=== PATIENT | female | born 1950 | race Caucasian/White ===

== ENCOUNTER 2024-03-04 10:16 | Outpatient (AMB) | payer MEDICARE, OTHER, SELFPAY ==
[2024-03-04 10:58] VITALS: BP 124/74; PULSE 103; O2SAT 96; BMI 17.7
--- NOTE | 2024-03-04 10:58 | A.OFFVIS_ITS ---
Vital Signs 03/04/24 10:58 Height 5 ft 4 in Weight 103 lb 2.821 oz BMI 17.7 BP 124/74 Blood Pressure Location Lt brachial Position Sitting Pulse 103 H Pulse Source Pulse Oximeter Pulse Oximetry (%) 96 Oxygen Delivery Method Room Air Intake Visit Reasons: arthritis/cm Intake Note: Patient presents for follow up on RA today. Allergies Penicillins Allergy (Mild, Verified 03/04/24 11:04) Itchiness HPI HPI arthritis/cm: Details: She continues to have limited range of motion of her shoulders. She denies any new joint swelling. She tries to exercise with movement at home. Recently her oncology regimen has been changed to receiving injections every 3 weeks to every [address] Daniel. She is on immunotherapy Atezolizumab for metastatic bladder cancer. She has ureteral stents. Denies any new infections Review of Systems Const All systems reviewed & are unremarkable except as noted in HPI and below Physical Exam Vital Signs: Last Vital Signs Pulse 103 H 03/04/24 10:58 BP 124/74 03/04/24 10:58 Pulse Ox 96 03/04/24 10:58 Oxygen Delivery Method Room Air 03/04/24 10:58 BMI result Body Mass Index 17.7 Const Other: General: Comfortable CVS: RRR Respiratory: clear to auscultation bilaterally. 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 She has ulnar deviations of her MCPs. No synovitis present upper extremity. Right shoulder abduction 100 degrees with left shoulder abduction 90 degrees with pain. She has internal external rotation of bilateral shoulders. Examined while patient is sitting in wheelchair seat. No synovitis of lower extremities. No MTP tenderness Assessment & Plan Assessment & Plan (1) Rheumatoid arthritis: Comment: Seropositive, deforming, erosive. On Leflunomide 04/13/2023 to present, sulfasalazine March 2023 to present. She is in clinical remission on current regimen. Monitoring closely while patient is being treated for metastatic bladder cancer on immunotherapy Atezolizumab PD-L1 inhibitor, which can lead to flares of inflammatory arthritis as a side effect. Code(s): M06.9 - Rheumatoid arthritis, unspecified Category: Medical Qualifiers: Rheumatoid arthritis location: multiple sites Rheumatoid factor prese nce: with rheumatoid factor Qualified Code(s): M05.79 - Rheumatoid arthritis with rheumatoid factor of multiple sites without organ or systems involvement Plan: Continue leflunomide 20 mg daily Continue sulfasalazine 500 mg b.i.d. She recently had labs done at [facility]. Requesting lab results for drug monitoring on high-risk medication. After lab results are back, we will send 90 day prescriptions for leflunomide and sulfasalazine. 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
--- OUTSIDE RECORDS SUMMARY | 2024-03-05 00:15 | XMS_ITS ---
Author Organization [facility] Address [address] [place] [address] Care Team Providers Care Chief [employer]erv[employer] Name Role Phone oRlanda King Primary Care Provider Toby AltmanSantae Unavailable [phone] REASON FOR VISIT [place] Encounters Encounter Location Date Provider Diagnosis [address] [address] 01/02/2024 Lolita Altman Plan Of Treatment Next Appt Details Provider Name:Lolita Altman , 04/02/2024 08:30:00 AM, [address] [place], [address], Progress Notes * Nelly ROQUEDOB: [birth year] (73 yo F)Acc No.[id number]:01/02/2024 Patient:?Nelly Roque :1950???Age:73 Y???Sex:Female Address:[address] [place] [address], [address] * true * Date:? Generated for Printi ng/Fakeyurg/eTransmitting on:?03/05/2024 12:15 AM EST
--- OUTSIDE RECORDS SUMMARY | 2024-03-05 00:15 | XMS_ITS ---
[facility] Address [address] [place] [address] Care Team Providers Care Chemical Handler Name Role Phone Rolanda King Primary Care Provider Toby gardiner Lolita Altman Unavailable [phone] Allergies Allergen (clinical drug ingredient) Drug/Non Drug Allergy documented on EMR Reaction Allergy Type Onset Date Status amoxicillin Amoxicillin Unknown Drug Allergy Act ady Penicillin Unknown Drug Allergy Active REASON FOR VISIT Pcp-12/16, Open sore, Skin problem(s) Medications Medication SIG (Take, Route, Frequency, Duration) Notes Start Date End Date Status Clindamycin HCl 300 MG 1 capsule Orally every 6 hrs for 10 day(s) 11/05/2022 Not-Taking oxyCODONE HCl 5 MG 1 tablet as needed Orally every 6 hrs Active Acetaminophen Extra Strength 500 MG 2 tablet as needed Orally every 6 hrs for 14 days 10/11/2022 Active Doxycycline Hyclate 100 MG 1 capsule Ora lly Once a day for 10 day(s) Active levoFLOXacin 500 MG 1 tablet Orally Once a day for 10 day(s) 12/03/2022 Not-Taking Neuriva Not-Taking Furosemide 20 MG 1 tablet Orally Once a day for 30 day(s) Active Eliquis 5 MG as directed Orally Active Metoprolol Succinate ER 25 MG 1 tablet Orally Once a day for 30 day(s) Active Doxycycline Hyclate 100 MG 1 capsule Ora lly Once a day for 10 day(s) 07/17/2021 Not-Taking oxyBUTYnin Not-Takin g Social History Tobacco Use: Social History Observation Description Date Details (start date - stop date) Former Smoker NA - NA Tobacco Use/Smoking Question Answer Notes Are you a: former smoker Additional Findings: Tobacco Non-User Current no n-smoker Tobacco use other than smoking: Question Answer Notes Are you an other tobacco user? No Vital Signs Height 5ft3in in 01/20/2024 Weight 100 lbs 01/20/2024 BMI 17.71 kg/m2 01/20/2024 Encounters Encounter Location Date Provider Diagnosis [facility] [address] [place] [address] 01/20/2024 Lolita Altman Cellulitis of right foot L03.115 ; Ulcer of left foot, limited to breakdown of skin L97.521 and Ulcer of right foot with fat layer exposed L97.512 Assessments Encounter Date Diagnosis (ICD Code) Assessment Notes Treatment Notes Treatment Clinical Notes Section Notes 01/20/2024 Cellulitis of right foot (ICD-10 - L03.115) Response to treatment - Improvement 01/20/2024 Ulcer of left foot, limited to breakdown of skin (ICD-10 - L97.521) Patient Educated with: WOUND CARE INSTRUCTIONS.p df (WOUND CARE INSTRUCTIONS.p df) 01/20/2024 Ulcer of right foot with fat layer exposed (ICD-10 - L97.512) Patient Educated with: WOUND CARE INSTRUCTIONS.p df (WOUND CARE INSTRUCTIONS.p df) Patient Educated with: WOUND CARE INSTRUCTIONS.p df (WOUND CARE INSTRUCTIONS.p df) 01/20/2024 Other Plan Of Treatment Treatment Notes Assessment Notes Ulcer of left foot, limited to breakdown of skin Patient Educated with: WOUND CARE INSTRUCTIONS.pdf (WOUND CARE INSTRUCTIONS.pdf) Ulcer of right foot with fat layer expos ed Patient Educated with: WOUND CARE INSTRUCTIONS.pdf (WOUND CARE INSTRUCTIONS.pdf) Patient Educated with: WOUND CARE INSTRUCTIONS.pdf (WOUND CARE INSTRUCTIONS.pdf) Next Appt Details Follow Up: 2-3 weeks, Reason : Provider Name:Lolita Altman , 04/02/2024 08:30:00 AM, [address] [place], [address], Procedure Notes * Category Sub-Category Detail Notes Debride skin< 25 sq cm Open wound Physician of record performed open wound selective debridement of first 25 sq cm or less, of devitilized necrotic/nonviable soft tissue, fibrin, and exudate extending from the epidermis through the dermis, utilizing sharp dissection with sterile 15 blade, and/or tissue nippers. Hemostasis was controlled through direct pressure. Sterile antibiotic dressing applied, ANESTHESIA was not required due to presence of NEUROPATHY. Post debridement measurements: 2 mm x2 mm x 1 mm. Character of the wound post debridement is stable (84720) Debride skin and subQ Open wound Physician of record performed open wound selective debridement of devitalized necrotic/nonviable soft tissue, fibrin, exudate, epidermis, dermis, thru skin and subcutaneous fat tissue, first 20 sq cm or less, using sharp dissection with sterile 15 blade, and/or tissue nippers. ANESTHESIA was not required due to presence of NEUROPATHY. Hemostasis was controlled through direct pressure. Sterile antibiotic dressing applied. Post debridement measurements: 7mm x6mm x 3mm. Character of the wound post debridement is stable (83465) Progress Notes * Nelly BENAVIDESDOB: [birth year] (73 yo F)Acc No.[id number]:01/20/2024 Progress Notes Patient:?Nelly Benavides Provider:?Lolita Altman DPM :1950???Age:73 Y???Sex:Female D ate:01/20/2024 Address:[address] [place], [place] [id number] Pcp:Rolanda King Subjective: * Chief Complaints: * ???Pcp-12/16Open soreSkin pr oblem(s) * HPI: ???Skin problems:?Nature:?redness , swelling , tender.?Location:?, Bottom , Forefoot , , Right.?Duration:?, several days.?Onset/Cause:?sudden.?Course:?, improved , at? 90%.?Aggravated by:?any pressure , standing.?Treatments:?DSD , medication ( doxycycline hyclate 100mg ) , Local care consisting of daily distilled water wound cleanse, topical antibiotic as recommended, application of sterile dressing, offloading/pressure reduction via rest, shoe modification, insert modification, accommodative padding, assisted ambulation via cane/ crutch/ walker/ wheel chair/ knee scooter, and surgical debridement.? * ROS:?General/Constitutional:?Nausea?denies.?Vomiting?denies.?Hunger Thirst?denies.?Loss appetite?denies.?Chills?denies.?Fatigue?denies.?Fever?denies.?Night Sweats?denies.?Unexplained weight loss?denies.?Unexplained weight gain?denies.?HEENTM:?Dentures?denies.?Dizziness?denies.?Glasses/contacts?denies.?Retinopathy?de nies.?Blurred/double vision?denies.?TMJ?denies.?Discharge/drainage?denies.?Implants?denies.?Sore throat?denies.?Dental implants?denies.?Hard of hearing ?denies.?Difficulty chewing/swallowing/speaking?denies.?Nose bleeds?denies.?Sore mouth?denies.?Respiratory:?On Oxygen?denies.?Pneumonia/pleurisy?denies.?Bronchitis?denies.?Emphysema?denies.?C oughing?denies.?Cough blood?denies.?Shortness of breath?denies.?Wheezing?denies.?Cardiovascular:?Pacemaker?denies.?MVP?denies.?WPW?denies.?CHF?denies.?Heart attack?denies.?Septal defect?denies.?Rapid beat?denies.?Chest pain ?denies.?Atrial Fib.?denies.?Murmur/Palpitations?denies.?Gastrointestinal:?Hemorrhoids?denies.?Stomach/Abdominal pain?denies.?Dark blood stool?denies.?Irritable bowel ?denies.?Constipation?denies.?Diarrhea?denies.?Hematology:?Swelling?denies.?Clots?denies.?Varicose Veins?denies.?Bruising?denies.?Bleeding problem?denies.?Genitourinary:?Blood urine?denies.?Frequent/Painfu/urination/bladder control?denies.?Kidney stones?denies.?Infection (UTI)?denies.?Nephropathy?denies.?sex trans dis (STD)?denies.?Prostate?denies.?Musculoskeletal:?Hammertoes?admits.?Bunions?admits.?Back Pain?denies.?Muscle Cramps/ Resting?denies.?Muscle cramps / walking?denies.?Generalized aches and pains?denies.?Weakness?denies.?Integ.:?Stanford?denies.?Scars?denies.?Corns/calluses?admits.?Ingrown nails?denies.?Painful nails?admits.?Open Sores?admits.?Rashes?denies.?Neurologic:?Difficulty sleeping?denies.?Brain disorder?denies.?Numbness?denies.?Balance trouble?denies.?Confusion?denies.?Fainting/blackouts?denies.?Tingling?admits.?Tr emors?denies.? * Medical History:? * Surgical History:?knee repla cement 08/19/2019left knee replacement 01/11Excision 4th Met Head Left Foot 10/31/22 * Hospitalization/Major Diagno stic Procedure:?Denies Past Hospitalization * Family History:?Mother: dece ased, diagnosed with Family history of arthritis, Unspecified essential hypertension.?Father: , Stroke, diagnosed with Unspecified essential hypertension, Unspecified heart disease.? * Social History:?Tobacco Use:?Tobacco Use/Smoking?Are you a:?former smoker ?Additional Findings: Tobacco Non-User?Current non-smoker ?Tobacco use other than smoking?Are you an other tobacco user??No ???Miscellaneous:?Caffeine: yes, frequency:, 1-2 cups per day. ?Children: yes. ?no Exercise. ?Marital status: . ?Occupation: retired- [employer]. * Medications:?TakingFurosemid e 20 MG Tablet 1 tablet Orally Once a dayEliquis 5 MG Tablet as directed Orally Metoprolol Succinate ER 25 MG Tablet Extended Release 24 Hour 1 tablet Orally Once a dayoxyCODONE HCl 5 MG Tablet 1 tablet as needed Orally every 6 hrsAcetaminophen Extra Strength 500 MG Tablet 2 tablet as needed Orally every 6 hrsDoxycycline Hyclate 100 MG Capsule 1 capsule Orally Once a dayTaking Furosemide 20 MG Tablet 1 tablet Orally Once a dayTaking Eliquis 5 MG Tablet as directed Orally Taking Metoprolol Succinate ER 25 MG Tablet Extended Release 24 Hour 1 tablet Orally Once a dayTaking oxyCODONE HCl 5 MG Tablet 1 tablet as needed Orally every 6 hrsTaking Acetaminophen Extra Strength 500 MG Tablet 2 tablet as needed Orally every 6 hrsTaking Doxycycline Hyclate 100 MG Capsule 1 capsule Orally Once a dayNot-Taking/PRNlevoFLOXacin 500 MG Tablet 1 tablet Orally Once a dayClindamycin HCl 300 MG Capsule 1 capsule Orally every 6 hrsoxyBUTYnin Doxycycline Hyclate 100 MG Capsule 1 capsule Orally Once a dayNeuriva Medication List reviewed and reconciled with the patientNot-Taking/PRN levoFLOXacin 500 MG Tablet 1 tablet Orally Once a dayNot-Taking/PRN Clindamycin HCl 300 MG Capsule 1 capsule Orally every 6 hrsNot-Taking/PRN oxyBUTYnin Not-Taking/PRN Doxycycline Hyclate 100 MG Capsule 1 capsule Orally Once a dayNot-Taking/PRN Neuriva Medication List reviewed and reconciled with the patient * Allergies:?AmoxicillinPenici llin: Allergyyes[Allergies Verified] Objective: * Vitals:?Ht: 5ft3in, Wt:100, BMI:17.71, Shoe size: 8EEW, Ht-cm: 160.02 cm, Wt-k.36 kg. * Examination: ???Dermatologic: ?SKIN FINDINGS:??Skin shows sign(s) of?cellulitis with localized lymphangitis right, resolved.?ULCER:?LOCATION, 2 MTH,right?? SIZE,6mm X 6mm X 3mm, BASE, fibro-granular, RIM, hyperkeratotic, UNDERMINING, mild, TRACKING, Sub Q with Fat layer exposed, DRAINAGE, serosanguineous, moderate, NECROTIC TISSUE, loosely-adherent, yellow slough, MALODOR,absent CALOR, absent, ERYTHEMA, trace?LOCATION, 2 MTH left SIZE, 3mm X 3mm X 2mm, BASE, granular, RIM, hyperkeratotic, UNDERMINING, absent, TRACKING, Full thickness breakdown of skin, DRAINAGE, serosanguineous, mild, NECROTIC TISSUE, loosely-adherent, yellow slough, MALODOR, absent, CALOR, absent, ERYTHEMA, absent, PAIN ON PALPATION, present.? Assessment: * Assessment: 1.?Cellulitis of right foot - L03.115 (Primary), Response to treatment - Improvement?2.?Ulcer of left foot, limited to breakdown of skin - L97.521?3.?Ulcer of right foot with fat layer exposed - L97.512? Plan: * Treatment: 2.?Ulcer of right foot with fat layer exposed? Notes: Patient Educated with: WOUND CARE INSTRUCTIONS.pdf (WOUND CARE INSTRUCTIONS.pdf) Patient Educated with: WOUND CARE INSTRUCTIONS.pdf (WOUND CARE INSTRUCTIONS.pdf)?? * Procedures:?Debride skin and subQ:?Open wound?Physician of record performed open wound selective debridement of devitalized necrotic/nonviable soft tissue, fibrin, exudate, epidermis, dermis, thru skin and subcutaneous fat tissue, first 20 sq cm or less, using sharp dissection with sterile 15 blade, and/or tissue nippers. ANESTHESIA was not required due to presence of NEUROPATHY. Hemostasis was controlled through direct pressure. Sterile antibiotic dressing applied. Post debridement measurements: 7mm x6mm x 3mm. Character of the wound post debridement is stable (42283).?Debride skin< 25 sq cm:?Open wound?Physician of record performed open wound selective debridement of first 25 sq cm or less, of devitilized necrotic/nonviable soft tissue, fibrin, and exudate extending from the epidermis through the dermis, utilizing sharp dissection with sterile 15 blade, and/or tissue nippers. Hemostasis was controlled through direct pressure. Sterile antibiotic dressing applied, ANESTHESIA was not required due to presence of NEUROPATHY. Post debridement measurements: 2 mm x2 mm x 1?mm. Character of the wound post debridement is stable (99101).? * Procedure Codes:?40605 DEBRI DE SKIN/TISSUE, Modifiers: XS 94705 ACTIVE WOUND CARE/20 CM OR <, Modifiers: XS * Preventive Medicine:? ??Counseling:?Discussion:?-12: Office or other outpatient visit for the evaluation and management of an established patient, which required a medically appropriate history and/or examination and STRAIGHTFORWARD level of MEDICAL DECISION MAKING, 1 SELF-LIMITED OR MINOR PROBLEM, MINIMAL- NO AMOUNT/COMPLEXITY OF DATA TO BE REVIEWED/ANALYZED, AND MINIMAL RISK OF COMPLICATION/MORBIDITY. The visit on the day of the encounter encompassed interpreting the data and educating the patient as to the nature of their condition, treatment options available according to their individual PMH, meds, allergies, and overall health/living conditions, as well as any potential risks or complications that may occur from a failure to adhere to, and participate in, the recommended course of therapy. The discussion included a complete verbal, and/or written explanation of the examination results, any x-rays taken, the proposed diagnosis, and outline of the treatment plan. A schedule for future care needs was also explained. The patient verbalized an understanding of the instructions at this time and agreed to be an active participant in their treatment. If the patient should think of any questions or concerns after the visit, I have encouraged the patient to call the office.?Cellulitis/Lymphangitis?Given recent successful results to treatment, The patient is to continue the plan as directed, ER: Discussed with the patient that if there is any worsening of the condition, then he/she is to report to the ER/EW for evaluation/treatment. The patient stated to fully understand the recommendations/instructions.? * Follow Up:?2-3 weeks * Images: * Sign off status: Completed true * Provider:?Lolita Altman DPM Date:?2023 Generated for Gonzalo moore/Zain/eTransmitting on:?03/05/2024 12:14 AM EST History and Physical Notes * HPI (History of Present Illness) Category Sub-Category Detail Notes Category Not es Skin problems Nature: redness , swelling , tender Location: , Bottom , Forefoot , , Right Duration: , several days Onset/Cause: sudden Course: , improved , at 90% Aggravated by: any pressure , stand ing Treatments: DSD , medication ( d oxycycline hyclate 100mg ) , Local care consisting of daily distilled water wound cleanse, topical antibiotic as recommended, application of sterile dressing, offloading/pressure reduction via rest, shoe modification, insert modification, accommodative padding, assisted ambulation via cane/ crutch/ walker/ wheel chair/ knee scooter, and surgical debridement Examination Category Sub-Category Detail Notes Category Not es Dermatologic SKIN FINDINGS: Skin shows sign( s) of cellulitis with localized lymphangitis right, resolved ULCER: LOCATION, 2 MTH,righ t SIZE,6mm X 6mm X 3mm, BASE, fibro-granular, RIM, hyperkeratotic, UNDERMINING, mild, TRACKING, Sub Q with Fat layer exposed, DRAINAGE, serosanguineous, moderate, NECROTIC TISSUE, loosely-adherent, yellow slough, MALODOR,absent CALOR, absent, ERYTHEMA, trace LOCATION, 2 MTH left SIZE, 3mm X 3mm X 2mm, BASE, granular, RIM, hyperkeratotic, UNDERMINING, absent, TRACKING, Full thickness breakdown of skin, DRAINAGE, serosanguineous, mild, NECROTIC TISSUE, loosely-adherent, yellow slough, MALODOR, absent, CALOR, absent, ERYTHEMA, absent, PAIN ON PALPATION, present
--- OUTSIDE RECORDS SUMMARY | 2024-03-05 00:15 | XMS_ITS ---
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 Generated for Printi oscar/Zain/eTransmitting on:?03/05/2024 12:15 AM EST
--- OUTSIDE RECORDS SUMMARY | 2024-03-05 00:16 | XMS_ITS | Patient Health Record ---
Author Organization [facility] Address [address] [place] [address] Care Team Providers Care Center Receptionist Name Role Phone Rolanda King Primary Care Provider Toby gardiner BlackLolita Unavailable [phone] Allergies Allergen (clinical drug ingredient) Drug/Non Drug Allergy documented on EMR Reaction Allergy Type Onset Date Status amoxicillin Amoxicillin Unknown Drug Allergy Act ady Penicillin Unknown Drug Allergy Active Results Component Value Reference Range Notes X ray : Foot, left 3V Reviewed date:12/12/2023 12:43:44 PM Interpretation:See Examination above Performing Lab: Notes/Report: See Examination above Reason For Referral No Information Medications Medication SIG (Take, Route, Frequency, Duration) [...] Once a day for 30 day(s) Active oxyBUTYnin Not-Takin g Doxycycline Hyclate 100 MG 1 capsule Ora lly Once a day for 10 day(s) 07/17/2021 Not-Taking Immunizations Vaccine Route Administration Date Status Comme nts COVID-19 Pfizer BioNTech Vaccine Unknown 01/09/2021 Administered 1ST DOSE: 12/19/2020 2ND DOSE: 01/09/2021 Social History Tobacco Use: Social History Observation Description Date Details (start date - stop date) Former Smoker NA - NA Tobacco Use/Smoking Question Answer Notes Are you a: former smoker Additional Findings: Tobacco Non-User Current no n-smoker Alcohol Screen Question Answer Notes Did you have a drink containing alcohol in the p ast year? No Points 0 Interpretation Negative Tobacco use other than smoking: Question Answer Notes Are you an other tobacco user? No Problems Problem Type SNOMED Code ICD Code Onset Dates Problem Status W/U Status Risk Notes Problem Acquired hallux valgus (13189438) Hallux valgus (acquired), left foot (M20.12) Active confirmed Problem Ulcer of foot (85907931) Non-pressure chronic ulcer of other part of left foot limited to breakdown of skin (L97.521) Active confirmed Resistant to previous conservative treatment Problem [id number] Rheumatoid arthritis with rheumatoid factor of right ankle and foot without organ or systems involvement (M05.771) Active confirmed Problem Acquired hallux valgus (49827206) Hallux valgus (acquired), right foot (M20.11) Active confirmed Problem Ulcer of foot (57453856) Non-pressure chronic ulcer of other part of right foot limited to breakdown of skin (L97.511) Active confirmed Problem Acquired hammer toe of right foot (0435102299375951) Other hammer toe(s) (acquired), right foot (M20.41) Active confirmed Problem Acquired hammer toe of left foot (1782385791307957) Other hammer toe(s) (acquired), left foot (M20.42) Active confirmed Problem Acquired deformity of right foot (25035808514341959) PlantarFlexion of metatarsal of right foot (M21.6X1) Active confirmed Problem Acquired deformity of left foot (52976943044479500) PlantarFlexion of metatarsal of left foot (M21.6X2) Active confirmed Problem 823789633 Ulcer of left foot with fat layer exposed (L97.522) Active confirmed Problem Localized, primary osteoarthritis of the ankle and/or foot (861085123) Arthritis of joint of lesser toe, left (M19.072) Active confirmed Problem Localized, primary osteoarthritis of the ankle and/or foot (664930344) Arthritis of joint of lesser toe, right (M19.071) Active confirmed Vital Signs Blood pressure diastolic 70 mm Hg 12/12/2023 Height 5ft3in in 01/20/2024 Blood pressure systolic 134 mm Hg 12/12/2023 Weight 100 lbs 01/20/2024 BMI 17.71 kg/m2 01/20/2024 Procedures Procedure Date Ordered Date Performed Result Body Sit e 36133-QBKQNKR NAIL, 6 OR MORE 05/06/2023 N/A 75835- Debride <25 sq cm 05/06/2023 N/A 03924-NPLQDCV NAIL, 6 OR MORE 08/08/2023 N/A 66585- Debride <25 sq cm 08/08/2023 N/A 87272-ANWVSCZ NAIL, 6 OR MORE 12/12/2023 N/A 49480-DLPAHAQ SKIN/TISSUE 12/12/2023 N/A 33541-GFKFCCW SKIN/TISSUE 01/02/2024 N/A Encounters Encounter Location Date Provider Diagnosis [address] [address] 05/06/2023 Lolita Black Tinea unguium B35.1 ; Other hammer toe(s) (acquired), right foot M20.41 ; Pain in left toe(s) M79.675 ; Pain in right toe(s) M79.674 ; Other hammer toe(s) (acquired), left foot M20.42 ; Ulcer of right foot, limited to breakdown of skin L97.511 and Ulcer of left foot, limited to breakdown of skin L97.[address] [address] 08/08/2023 Lolita Black Tinea unguium B35.1 ; Pain in left toe(s) M79.675 ; Pain in right toe(s) M79.674 and Ulcer of left foot, limited to breakdown of skin L97.[address] [address] 12/12/2023 Lolita Black Tinea unguium B35.1 ; Pain in left toe(s) M79.675 ; Pain in right toe(s) M79.674 ; Cellulitis of foot, left L03.116 ; Ulcer of left foot with fat layer exposed L97.522 ; Pain in left foot M79.672 ; PlantarFlexion of metatarsal of left foot M21.6X2 and Rheumatoid arthritis with rheumatoid factor of right ankle and foot without organ or systems involvement M05.[address] [facility] [address] 01/02/2024 Lolita Black Cellulitis of foot, left L03.116 ; Cellulitis of right foot L03.115 ; Ulcer of left foot with fat layer exposed L97.522 and Cutaneous abscess of right foot L02.[address] [address] 01/20/2024 Lolita Black Cellulitis of right foot L03.115 ; Ulcer of left foot, limited to breakdown of skin L97.521 and Ulcer of right foot with fat layer exposed L97.[address] [address] 01/02/2024 Lolita Black [address] [address] 01/02/2024 Lolita Black Assessments Encounter Date Diagnosis (ICD Code) Assessment Notes Treatment Notes Treatment Clinical Notes Section Notes 08/08/2023 Tinea unguium (ICD-10 - B35.1) 08/08/2023 Pain in left toe(s) (ICD-10 - M79.675) 05/06/2023 Other hammer toe(s) (acquired), right foot (ICD-10 - M20.41) 05/06/2023 Tinea unguium (ICD-10 - B35.1) 12/12/2023 Tinea unguium (ICD-10 - B35.1) 12/12/2023 Pain in left toe(s) (ICD-10 - M79.675) 01/02/2024 Cellulitis of right foot (ICD-10 - L03.115) 01/02/2024 Cellulitis of foot, left (ICD-10 - L03.116) Response to treatment,Resol christo 01/20/2024 Cellulitis of right foot (ICD-10 - L03.115) Response to treatment - Improvement 01/20/2024 Ulcer of left foot, limited to breakdown of skin (ICD-10 - L97.521) Patient Educated with: WOUND CARE INSTRUCTIONS. pdf (WOUND CARE INSTRUCTIONS. pdf) 01/02/2024 Ulcer of left foot with fat layer exposed (ICD-10 - L97.522) Patient Educated with: WOUND CARE INSTRUCTIONS. pdf (WOUND CARE INSTRUCTIONS. pdf) 01/20/2024 Ulcer of right foot with fat layer exposed (ICD-10 - L97.512) Patient Educated with: WOUND CARE INSTRUCTIONS. pdf (WOUND CARE INSTRUCTIONS. pdf) Patient Educated with: WOUND CARE INSTRUCTIONS. pdf (WOUND CARE INSTRUCTIONS. pdf) 12/12/2023 Pain in right toe(s) (ICD-10 - M79.674) 08/08/2023 Pain in right toe(s) (ICD-10 - M79.674) 05/06/2023 Pain in left toe(s) (ICD-10 - M79.675) 05/06/2023 Pain in right toe(s) (ICD-10 - M79.674) 08/08/2023 Ulcer of left foot, limited to breakdown of skin (ICD-10 - L97.521) 12/12/2023 Cellulitis of foot, left (ICD-10 - L03.116) 01/02/2024 Cutaneous abscess of right foot (ICD-10 - L02.611) 12/12/2023 Ulcer of left foot with fat layer exposed (ICD-10 - L97.522) Patient Educated with: WOUND CARE INSTRUCTIONS. pdf (WOUND CARE INSTRUCTIONS. pdf) 05/06/2023 Other hammer toe(s) (acquired), left foot (ICD-10 - M20.42) 05/06/2023 Ulcer of right foot, limited to breakdown of skin (ICD-10 - L97.511) 12/12/2023 Pain in left foot (ICD-10 - M79.672) 12/12/2023 PlantarFlexion of metatarsal of left foot (ICD-10 - M21.6X2) 05/06/2023 Ulcer of left foot, limited to breakdown of skin (ICD-10 - L97.521) 12/12/2023 Rheumatoid arthritis with rheumatoid factor of right ankle and foot without organ or systems involvement (ICD-10 - M05.771) 12/12/2023 Other 01/20/2024 Other Plan Of Treatment Pending Test Test Name Order Date *Wound Culture 11/19/2022 66667-HSYVWXG NAIL, 6 OR MORE 09/10/2022 72536-KETFMOA NAIL, 6 OR MORE 06/21/2022 95133-KIQDVAQ NAIL, 6 OR MORE 10/09/2021 55126-MGOLTTR NAIL, 6 OR MORE 12/11/2021 00777-WXQNBZB NAIL, 6 OR MORE 02/12/2022 90018-NCYAFLV NAIL, 6 OR MORE 10/12/2019 17746-ILJTIUS NAIL, 6 OR MORE 12/21/2019 90230-ONVHJEI NAIL, 6 OR MORE 06/30/2020 49528-OKFHBYP NAIL, 6 OR MORE 10/03/2020 36965-IJVHWQR NAIL, 6 OR MORE 01/09/2021 81365-SQQHJOF NAIL, 6 OR MORE 03/23/2021 98420-WWAMBOZ NAIL, 6 OR MORE 06/29/2021 49408-NNCOKEW NAIL, 6 OR MORE 12/24/2022 00788-HUYIDYY NAIL, 6 OR MORE 05/06/2023 20999-QJBOIUQ NAIL, 6 OR MORE 08/08/2023 82488-VRNLSEN NAIL, 6 OR MORE 12/12/2023 13624-Zaktwyof Plate 10/03/2020 14122- Debride <25 sq cm 10/03/2020 75434- Debride <25 sq cm 06/30/2020 37380- Debride <25 sq cm 11/09/2019 90933- Debride <25 sq cm 03/23/2021 01134- Debride <25 sq cm 01/09/2021 15341- Debride <25 sq cm 02/12/2022 88270- Debride <25 sq cm 12/11/2021 72551- Debride <25 sq cm 08/07/2021 81896- Debride <25 sq cm 10/09/2021 75448- Debride <25 sq cm 09/10/2022 85544- Debride <25 sq cm 10/12/2019 29018- Debride <25 sq cm 06/21/2022 13792- Debride <25 sq cm 10/11/2022 21817- Debride <25 sq cm 12/24/2022 44144- Debride <25 sq cm 08/08/2023 17653- Debride <25 sq cm 05/06/2023 24209-ULNZDOX SKIN/TISSUE 01/02/2024 23915-ZONGDIZ SKIN/TISSUE 12/12/2023 31517 I&D ABSCESS- SIMPLE,SINGLE 022 02217 I&D ABSCESS- SIMPLE,SINGLE 022 22987 I&D ABSCESS- SIMPLE,SINGLE 022 24743 I&D ABSCESS- SIMPLE,SINGLE 021 21174, K9777-IUSHG/INJECT, JOINT/BURSA 1 04/14/2021 Next Appt Details Provider Name:Lolita Altman , 04/02/2024 08:30:00 AM, [address] [place], [address], Insurance Providers Payer Name Payer Address Payer Phone Subscriber Number Group Number Insured Name Patient Relationship to Insured Coverage Start Date Coverage End Date Medicare National [employer] [address] [place] [id number] [phone] [id number] Nelly Benavides Self - patient is the insured [facility] [address] [place] [id number] Nelly Benavides Self - patient is the insured Medical (General) History Medical History History ICD Code Arthritis Back,Hip,and Knee pain Cancer High blood pressure Kidney disease Measles Mumps Chicken pox Transfusions Surgical History Surgery Date(Month/Year) knee replacement 08/19/2019 left knee replacement 01/11 Excision 4th Met Head Left Foot 10/31/22
== END 2024-03-04 11:35 | disposition home or self-care (01) ==
PROVIDERS: Visit Provider Internal Medicine Rheumatology
DX: M05.79 Rheumatoid arthritis with rheumatoid factor of multiple sites without organ or systems involvement (principal); Z79.899 Other long term (current) drug therapy
CPT/HCPCS: 99214; G2211

== ENCOUNTER → 2024-03-04 10:16 | Outpatient (BNVA) | payer MEDICARE, OTHER, SELFPAY | PROVIDERS: Visit Provider Internal Medicine Rheumatology | DX: M05.79 Rheumatoid arthritis with rheumatoid factor of multiple sites without organ or systems involvement (principal); Z79.899 Other long term (current) drug therapy | CPT/HCPCS: 99212 ==

== ENCOUNTER 2024-06-09 08:45 | Outpatient (AMB) | payer MEDICARE, OTHER, SELFPAY ==
[2024-06-09 08:49] VITALS: PULSE 114; O2SAT 94; BMI 17.8
--- NOTE | 2024-06-09 08:49 | A.OFFVIS_ITS ---
Vital Signs 06/09/24 08:49 Height 5 ft 4 in Weight 104 lb BMI 17.8 Pulse 114 H Pulse Source Pulse Oximeter Pulse Oximetry (%) 94 Oxygen Delivery Method Room Air Intake Visit Reasons: Follow Up 3mo Intake Note: Patient presents for follow up on RA today. Pt is also interested in getting a cortisone injection in her left shoulder. Allergies Penicillins Allergy (Mild, Verified 06/09/24 08:50) Itchiness HPI HPI Follow Up 3mo: Details: She has been experiencing left shoulder pain at night. She also has noted swelling in her left wrist. Morning stiffness hours. Oncology recently has held her chemo and we will monitor clinically. Review of Systems Const All systems reviewed & are unremarkable except as noted in HPI and below Physical Exam Vital Signs: Last Vital Signs Pulse 114 H 06/09/24 08:49 Pulse Ox 94 06/09/24 08:49 Oxygen Delivery Method Room Air 06/09/24 08:49 BMI result Body Mass Index 17.8 Const Other: General: Comfortable CVS: RRR Respiratory: clear to auscultation bilaterally. 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 She has ulnar deviations of her MCPs. She has swelling of left wrists. Right shoulder abduction 80 degrees with left shoulder abduction 70 degrees with pain. She has internal external rotation of bilateral shoulders. Examined while patient is sitting in wheelchair seat. No synovitis of lower extremities. No MTP tenderness Assessment & Plan Assessment & Plan (1) Rheumatoid arthritis: Comment: She has developed left wrist synovitis with left shoulder pain. I we will treat with the short course of prednisone. If she continues to have left shoulder pain, she will call office for consideration of left shoulder cortisone injection. Rheumatology history: Seropositive, deforming, erosive. On Leflunomide 04/13/2023 to present, sulfasalazine March 2023 to present. Monitoring closely while patient is being treated for metastatic bladder cancer on immunotherapy Atezolizumab PD-L1 inhibitor, recently on hold. Code(s): M06.9 - Rheumatoid arthritis, unspecified Category: Medical Qualifiers: Rheumatoid arthritis location: multiple sites Rheumatoid factor presence: with rheumatoid factor Qualified Code(s): M05.79 - Rheumatoid arthritis with rheumatoid factor of multiple sites without organ or systems involvement Plan: Prednisone course ordered Left shoulder x-ray ordered Continue leflunomide 20 mg daily Continue sulfasalazine 500 mg b.i.d. 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 5 mg PO DIRECTED 18 tabs 0RF Refilled leflunomide 20 mg PO DAILY 90 tabs 0RF Coding Level of Care Code Est Pt Level 4 (84862) Complex EM visit Add On G2211 Diagnoses Rheumatoid arthritis involving multiple sites with positive rheumatoid factor M05.79 Rheumatoid arthritis location: multiple sites Rheumatoid factor presence: with rheumatoid factor Other senior care (current) drug therapy Z79.899
--- OUTSIDE RECORDS SUMMARY | 2024-06-09 09:08 | XMS_ITS | Encounter Summary ---
Author Organization [facility] Address [address] [place] [address] Care Team Providers Care Construction Engineer Name Role Phone Rolanda Alcala MD Primary Care Prov ider Encounter Details Date Type Department Care Team Description 01/08/2023 Social Work [facility] Oncology Services [address] [place] [address] [facility] Social History Tobacco Use Types Packs/Day Years Used Date Smoking Tobacco: Former Cigarettes 1.5 30 Q uit: 08/09/1989 Smokeless Tobacco: Never Alcohol Use Standard Drinks/Week Comments No 0 (1 standard drink = 0.6 oz pur e alcohol) Sex and Gender Information Value Date Recorded Sex Assigned at Female 06/15/2019 3:13 PM EDT Gender Identity Female 06/15/2019 3:13 PM EDT Sexual Orientation Straight 12/26/2021 12 :02 PM EDT Job Start Date Occupation Industry Not on file Not on file Not on file documented as of this encounter Plan of Treatment Not on file documented as of this encounter Visit Diagnoses Not on filedocumented in this encounter Care Teams Construction Engineer Relationship Specialty Start Date End Date Rolanda Alcala MD [address] [place] [address] PCP - General Internal Medicine 10/25/22 documented as of this encounter
--- OUTSIDE RECORDS SUMMARY | 2024-06-09 09:08 | XMS_ITS ---
Author [facility] Address [address] [place] [address] Care Team Providers Care Supervisor Transcribing Operators Name Role Phone Rolanda King Primary Care Provider Toby gardiner Lolita Altman Unavailable [phone] Allergies Allergen (clinical drug ingredient) Drug/Non Drug [...] 01/20/2024 Encounters Encounter Location Date Provider Diagnosis [facility] [place] [address] [place] [address] 01/20/2024 Lolita Altman Cellulitis of right foot [...] weeks, Reason : Provider Name:Lolita Altman , 07/30/2024 08:30:00 AM, [address] [place], [address], Procedure Notes * Category Sub-Category Detail Notes [...] of the wound post debridement is stable (21978) Debride skin and subQ Open wound Physician [...] of the wound post debridement is stable (98920) Progress Notes * Nelly BENAVIDESDOB: [birth year] (73 yo F)Acc No.[id number]:01/20/2024 Progress Notes Patient:?Nelly Benavides Provider:?Lolita Altman DPM :1950???Age:73 Y???Sex:Female D ate:01/20/2024 Address:[address] [place], [place] [id number] Pcp:Rolanda King Subjective: * Chief Complaints: * [...] of the wound post debridement is stable (20257).?Debride skin< 25 sq cm:?Open wound?Physician of record [...] of the wound post debridement is stable (16860).? * Procedure Codes:?46632 DEBRI DE SKIN/TISSUE, Modifiers: XS 70040 ACTIVE WOUND CARE/20 CM OR <, Modifiers: [...] Altman DPM Date:?2023 Generated for Gonzalo moore/Zain/eTransmitting on:?06/09/2024 09:08 AM EDT History and Physical Notes * HPI (History [...]
--- OUTSIDE RECORDS SUMMARY | 2024-06-09 09:08 | XMS_ITS | Encounter Summary ---
Author Organization [facility] Address [address] [place] [address] Care Team Providers Care [employer] Teacher Name Role Phone Rolanda Avila MD Primary Care Prov ider Encounter Details Date Type Department Care Team (Late st Contact Info) Description 01/15/2024 9:40 AM EDT Hospital Encounter TH HISTORIC ENCOUNTERS EASTERN CONVERSION ONLY Maryjane Albert MD [address] [phone] Social History Tobacco Use Types Packs/Day Years Used Date Smoking Tobacco: Former Cigarettes Q uit: 08/09/1989 Smokeless Tobacco: Never Alcohol Use Standard Drinks/Week Comments No 0 (1 standard drink = 0.6 oz pur e alcohol) Housing Instability Answer Date Recorde d Are you worried that in the next 2 months you may not have stable housing? No 04/16/2024 Food Access & Nutrition Answer Date Rec orded Do you have access to a vari ety of food including fruits and vegetables? Yes 04/16/2024 Access to Healthcare Answer Date Record ed Within the last 3 months, cayla nowak many times did you visit the emergency department for your medical care? 0 04/16/2024 Health Literacy Answer Date Recorded How often do you need to hav e someone help you when you read instructions, pamphlets, or other written material from your doctor or pharmacy? Never 04/16/2024 Caregiver: How often do you need to have someone help you when you read instructions, pamphlets, or other written material from your doctor or pharmacy? Not on file 04/16/2024 Financial Risk Answer Date Recorded How hard is it for you to pa y for the very basics like food, housing, medical care, and air conditioning / heating? Not very hard 04/16/2024 Transportation Answer Date Recorded Has the lack of transportati on kept you from meetings, work, or from getting things needed for daily living? No Has the lack of transportati on kept you from medical appointments or from getting medications? No 04/16/2024 Social Isolation Answer Date Recorded How often do you feel lonely or isolated from th ose around you? Never 04/16/2024 Food Risk Answer Date Recorded Within the past 12 months we worried whether our food would run out before we got money to buy more. Sometimes true 025 Within the past 12 months th e food we bought just didn't last and we didn't have money to get more. Sometimes true 04/16/2024 Dependent Care Answer Date Recorded Do you need help finding or paying for care for your loved ones. For example, children's ministries director or elderly care for an older adult? No 04/16/2024 Education Answer Date Recorded Do you think completing more education or training, like finishing a GED, going to college, or learning a trade, would be helpful for you? No 04/16/2024 Employment and Income Answer Date Recor ded During the last four weeks, have you been actively looking for work? No 04/16/2024 Living Situation Answer Date Recorded What is your living situation? 0 04/16/2024 Comments No Sex and Gender Information Value Date Recorded Sex Assigned at Female 04/29/2024 9:53 AM EST Legal Sex Female 3:18 AM EST Gender Identity Female 04/29/2024 9:53 AM EST Sexual Orientation Choose not to disclose 2024 9:53 AM EST documented as of this encounter Plan of Treatment Upcoming Encounters Date Type Department Care Team (Late st Contact Info) Description 07/13/2024 10:00 AM EDT Appointment [facility] Interventional Radiology [address] [place] [phone] 07/22/2024 10:30 AM EDT Office Visit [facility] Hematology Oncology [address] [place] [phone] Felicitas Macdonald MD [address] [place] [phone] 11/11/2024 1:00 PM EDT Office Visit Nephrology [address] [phone] Efe Ramirez MD [address] [phone] 04/20/2025 2:00 PM EST [facility] [address] [phone] Rolanda Avila MD [address] [place] [phone] documented as of this encounter Procedures Procedure Name Priority Date/Time Associated Diagnosis Comments EXCH CATH NEPHROS Routine 01/15/2024 10: 42 AM EDT documented in this encounter Results * EXCH CATH NEPHROS (01/15/2024 10:42 AM EDT) Anatomical Region Laterality Modality Radiographic Sole ging 01/15/2024 9:47 AM EDT Narrative 01/15/2024 10:[address] [facility] Diagnostic Imaging Department [address] [place] [address] Patient: ??NELLY BENAVIDES ?/Age/Sex: 1950 - 73 - F Unit#: ??[id number] ? Location/Status: ??SPDIANGIO/REG CLI ? Mnemonic/Ordering Site: ??EXNEPHCATH/SPIR Ordering Physician: ??MARYJANE ALBERT MD Exch Cath Nephros - 01/15/24 - Report Status:Signed Nephrostomy tube change, antegrade nephrostogram INDICATION: Chronic hydronephrosis Laterality: Left COMPARISON: 10/15/2023 Skin dose: 11 mGy. Interventionalist: Gallito Brody MD EBL: None PROCEDURE: Informed consent was obtained. ??The patient was brought to the angiography and placed in a prone position. ??The pre-existing catheter and flank were prepped and draped in the usual and sterile fashion. ??A timeout was then performed. Injection of contrast through the nephrostomy tube demonstrates positioning within upper pole calyx with opacification of the renal pelvis. 1% lidocaine was used for skin anesthesia. ??The skin suture was cut. ??A small incision was cut into the side of the tubing and a 0.035 wire was gently positioned into the renal pelvis. ??The tube was then cut and the catheter was removed over the wire. A new 8 ??Dutch nephrostomy tube was advanced over the wire and of the tube coiled in the renal pelvis. Additional administration of contrast demonstrate appropriate positioning of the catheter. ?The loop was locked and a sterile dressing was applied. The patient tolerated the procedure well without any immediate complications. IMPRESSION: 1. ??Left-sided 8 ?? Dutch PCN exchange. Dictating Physician: ??GALLITO BRODY MD Electronically Signed by: ??GALLITO BRODY MD Dic Date/Time: ??01/15/24 1035 Sign date/Time: ??01/15/24 1042 Procedure Note Gallito Brody MD - 01/21/[address] [facility] Diagnostic Imaging Department [address] [place] [address] Patient: NELLY BENAVIDES Mg /Age/Sex: 1950 - 73 - F Unit#: [id number] [facility] Mnemonic/Ordering Site: EXNEPHCAT/[facility] Ordering Physician: MARYJANE ALBERT MD Exch Cath Nephros - 01/15/24 - Report Status:Signed Nephrostomy tube change, antegrade nephrostogram INDICATION: Chronic hydronephrosis Laterality: Left COMPARISON: 10/15/2023 Skin dose: 11 mGy. Interventionalist: Gallito Brody MD EBL: None PROCEDURE: Informed consent was obtained. The patient was brought tothe angiography and placed in a prone position. The pre-existing catheter andflank were prepped and draped in the usual and sterile fashion. A timeout wasthen performed. Injection of contrast through the nephrostomy tube demonstratespositioning within upper pole calyx with opacification of the renal pelvis. 1% lidocaine was used for skin anesthesia. The skin suture was cut. Asmall incision was cut into the side of the tubing and a 0.035 wire was gently positioned into the renal pelvis. The tube was then cut and the catheterwas removed over the wire. A new 8 Dutch nephrostomy tube was advanced over the wire and of thetube coiled in the renal pelvis. Additional administration of contrastdemonstrate appropriate positioning of the catheter. The loop was locked and asterile dressing was applied. The patient tolerated the procedure well without any immediatecomplications. IMPRESSION: 1. Left-sided 8 Dutch PCN exchange. Dictating Physician: GALLITO BRODY MD Electronically Signed by: GALLITO BRODY MD Dic Date/Time: 01/15/24 1035 Sign date/Time: 01/15/24 1042 Maryjane Albert MD IMG XR PROCEDURES Final Result documented in this encounter Visit Diagnoses Not on filedocumented in this encounter Care Teams [employer] Education Teacher Relationship Specialty Start Date End Date Rolanda Avila MD [address] [place] [phone] PCP - General Internal Medicine 10/23/21 documented as of this encounter
--- OUTSIDE RECORDS SUMMARY | 2024-06-09 09:08 | XMS_ITS | Encounter Summary ---
Author Organization [facility] Address [address] [place] [address] Care Team Providers Care [employer] Name Role Phone Rolanda Avila MD Primary Care Prov ider Encounter Details Date Type Department Care Team (Late st Contact Info) Description 01/08/2024 10:48 AM EDT Hospital Encounter TH HISTORIC ENCOUNTERS EASTERN CONVERSION ONLY Social History Tobacco Use Types Packs/Day Years [...] Record ed Within the last 3 months, ho w many times did you visit the emergency [...] care for your loved ones. For example, school child care attendant or elderly care for an older adult? [...] AM EST documented as of this encounter Last Filed Vital Signs Vital Sign Reading Time Taken Comments Blood Pressure - - Pulse - - Temperature - - Respiratory Rate - - Oxygen Saturation - - Inhaled Oxygen Concentration - - Weight 46 kg (101 lb 6.4 oz) 12/11/2023 11:58 AM EDT Height 152.4 cm (5') 12/11/2023 11:31 AM EDT Body Mass Index 19.8 12/11/2023 11:31 AM EDT documented in this encounter Progress Notes * Historical, Notes Results - 01/08/2024 11:00 AM EDT Patient arrives ambulatory for tx with Atezolizumab. She is in goof spirits and states overall feeling well. No new acute issues to report. She states she talked dr. mancuso into changing tx to q 4 weeks. Patient has continued chronic arthritis pain and contractures. She states her meds at home keep [place] She has been doing some research and is going to ask her arthritis MD about a new medicationshe heard about. Labs reviewed , ok to treat. PIV started, call lou at reach, will monitor. * Historical, Notes Results - 01/08/2024 11:00 AM EDT Patient finished tx without incident. Patient left stable and ambulatory. Next appointment made andgiven. Instructed to call with any questions or concerns. documented in this encounter Plan of Treatment Upcoming Encounters Date Type Department Care Team (Late st Contact Info) Description 07/13/2024 10:00 AM EDT Appointment [facility] Interventional Radiology [address] [place] [phone] 07/22/2024 10:30 AM EDT Office Visit [facility] Hematology Oncology [address] [place] [phone] Stefan-Felicitas Mancuso MD [address] [place] [phone] 11/11/2024 1:00 PM EDT Office Visit Nephrology [address] [phone] Efe Ramirez MD [address] [place] [phone] 04/20/2025 2:00 PM EST Office Visit Adult Medicine [address] [phone] Rolanda Avila MD [address] [place] [address] documented as of this encounter Visit Diagnoses Not on filedocumented in this encounter Care Teams [employer] Relationship Specialty Start Date End Date Rolanda Avila MD [address] [place] [phone] PCP - General Internal Medicine 10/23/21 documented as of this encounter
--- OUTSIDE RECORDS SUMMARY | 2024-06-09 09:08 | XMS_ITS | Clinical Summary ---
Author Organization [facility] Address [address] [place] [address] Phone Care Team Providers Care Systems Security Consultant Name Role Phone Rolanda Avila MD Primary Care Prov ider Allergies Active Allergy Reactions Criticality Noted Date Comments Cefadroxil Other 11/28/2016 PATIENT UNSURE Doxycycline Hyclate Diarrhea 04/16/2024 Penicillins Itching,Rash Low 12/04/2016 Medications acetaminophen (TYLENOL) 500 mg tablet Take 1 tablet (500 mg total) by mouth. Active apixaban (ELIQUIS) 2.5 mg tablet Take 1 tablet (2.5 mg total) by mouth 2 (two) times a day. 4 Active furosemide (LASIX) 20 mg tablet Take 1 tablet (20 mg total) by mouth 1 (one) time each day. 3 Active leflunomide (ARAVA) 20 mg tablet 3 Active metoprolol succinate (TOPROL-XL) 25 mg 24 hr tablet Take 1 tablet (25 mg total) by mouth 1 (one) time each day. 4 Active lactose-reduced food (ENSURE COMPLETE ORAL) Take 237 mL by mouth. 2 Active senna-docusate (PERICOLACE) 8.6-50 mg per tablet Take 1 tablet by mouth. 0 Active sulfaSALAzine (AZULFIDINE) 500 mg tablet Take 1 Tablet by mouth 2 times daily. 3 Active oxyCODONE (ROXICODONE) 5 mg immediate release tablet Take 1 tablet (5 mg total) by mouth every 4 (four) hours if needed for severe pain. Max Daily Amount: 30 mg 60 tablet 5 Active oxyCODONE (ROXICODONE) 5 mg immediate release tablet Take 1 tablet (5 mg total) by mouth every 4 (four) hours if needed for severe pain. Max Daily Amount: 30 mg 60 tablet 5 05/18/19 25 Discontinu ed(Reorder ) Active Problems Problem Noted Date Diagnosed Date Hypothyroidism due to medication 02/04/2024 Acute pain of left shoulder 12/05/2021 Hydronephrosis 08/10/2020 Gross hematuria 08/10/2020 Retention, urine 08/10/2020 Lung nodule 02/22/2020 S/P total knee replacement, left 01/12/2020 Acquired genu valgum of left knee 12/28/2019 Prediabetes 12/15/2019 Chronic deep vein thrombosis (DVT) of both femor al veins 07/06/2019 Assessment & Plan (04/16/2024 11:25 AM EST): No new symptoms, on Apixaban BID, good tolerance, no bleedings, continue same medication. Primary osteoarthritis of both knees 02/17/2019 Chronic pain of both knees 02/17/2019 Abnormal CXR 09/05/2018 Protein-calorie malnutrition, moderate 9 Thrombocythemia 07/08/2018 Nephrostomy status 07/08/2018 Healthcare-associated pneumonia 06/06/2018 Diastolic congestive heart failure 04/25/2018 Pleural effusion, bilateral 04/25/2018 Overview (05/15/2023): S/p bilateral VATS, chest tube. Negative malignant cells. - Dr Ibarra ( thoraci surgery) Primary insomnia 02/18/2018 Essential hypertension 06/07/2017 Assessment & Plan (04/16/2024 11:25 AM EST): well controlled, today 106/64. Currently on Metoprolol and furosemide. Continue same regimen Malignant neoplasm of urinary bladder 06/07/2017 Overview (05/15/2023): Dx 2016 with pelvic mass, metastatic to bone Surgery, Chemo and RT Iron deficiency anemia due to chronic blood loss 11/28/2016 Secondary malignant neoplasm of bone 11/28/2016 Overview (05/15/2023): Metastatic bladder cancer Osteoarthritis of hand 12/04/2010 Rheumatoid arthritis, seropositive, multiple sit es 03/22/2010 Overview (05/15/2023): Onset spring 2009. RF, CCP positive; some progression of knee OA Refused second line agents - methotrexate, etc.05/2011, 11/2012, 12/07 Encounters Date Type Department Care Team Description 05/27/2024 10:30 AM EST - 05/27/2024 11:59 PM EST Hospital Encounter [facility] [address] [place] [phone] Felicitas Zepeda MD Hypothyroidism due to medication (Primary Dx); Malignant neoplasm of overlapping sites of bladder (CMS/HCC); Secondary malignant neoplasm of bone (CMS/HCC) Discharge Disposition: Home or Self Care 05/27/2024 10:15 AM EST Office Visit [facility] Hematology Oncology [address] [place] [phone] Felicitas Zepeda MD Malignant neoplasm of overlapping sites of bladder (CMS/HCC) (Primary Dx); Hydronephrosis with ureteropelvic junction (UPJ) obstruction; Nephrostomy status (CMS/HCC); Pleural effusion, bilateral; Chronic deep vein thrombosis (DVT) of both femoral veins (CMS/HCC); Essential hypertension 04/29/2024 9:54 AM EST - 04/29/2024 11:59 PM EST Hospital Encounter [facility] Infusion Center [address] [place] [phone] Felicitas Zepeda MD Malignant neoplasm of overlapping sites of bladder (CMS/HCC) (Primary Dx); Secondary malignant neoplasm of bone (CMS/HCC); Hypothyroidism due to medication Discharge Disposition: Home or Self Care 04/16/2024 11:00 AM EST Office Visit [address] [phone] Rolanda Sifuentes MD Chronic deep vein thrombosis (DVT) of both femoral veins (CMS/HCC) (Primary Dx); Essential hypertension; Stage 4 chronic kidney disease (CMS/HCC); Encounter for screening involving social determinants of health (SDoH); Screening for depression 04/14/2024 9:43 AM EST - 04/14/2024 11:59 PM EST Hospital Encounter [facility] Interventional Radiology [address] [place] [phone] Hydronephrosis Discharge Disposition: Home or Self Care 03/31/2024 10:30 AM EST - 03/31/2024 11:59 PM EST Hospital Encounter [facility]fusion [facility] [address] [place] [phone] Felicitas Zepeda MD Malignant neoplasm of overlapping sites of bladder (CMS/HCC) (Primary Dx); Secondary malignant neoplasm of bone (CMS/HCC); Hypothyroidism due to medication Discharge Disposition: Home or Self Care 03/31/2024 10:15 AM EST Office Visit [facility] Hematology Oncology [address] [place] [phone] Felicitas Zepeda MD Malignant neoplasm of overlapping sites of bladder (CMS/HCC) (Primary Dx); Primary osteoarthritis of both hands; Hypothyroidism due to medication; Iron deficiency anemia due to chronic blood loss; Rheumatoid arthritis, seropositive, multiple sites (CMS/HCC) 03/26/2024 10:29 AM EST - 03/26/2024 11:59 PM EST Hospital Encounter [facility] CT Scan [address] [place] [address] Malignant neoplasm of overlapping sites of bladder (CMS/HCC); Secondary malignant neoplasm of bone (CMS/HCC); Lung nodules Discharge Disposition: Home or Self Care from Last 3 Months Immunizations Name Administration Dates Next Due Influenza trivalent, 0.5mL ( Fluzone High-dose) 65yo and older 01/09/2021,12/24/2019,11/26/2018 Pfizer SARS-CoV-2 COVID-19, mRNA, LNP-S, preservative free 01/09/2021,12/19/2020 Pneumococcal conjugate 13 va lent (Prevnar 13, PCV13) 2mo and older 12/31/2018 Pneumococcal polysaccharide 23 valent (Pneumovax 23) 2yo and older 01/05/2020 Surgical History Surgery Date Site/Laterality Comments APPENDECTOMY PROCEDURE:APPENDECTOMY TRANSURETHRAL RESECTION OF BLADDER TUMOR 11/25/2016 PROCEDURE:TRANSURETHRAL RESECTION OF BLADDER TUMOR COLONOSCOPY 11/28/2016 PROCEDURE:COLONOSCOPY APPENDECTOMY PROCEDURE:APPENDECTOMY PERCUTANEOUS NEPHROSTOMY Left PROCEDURE:PERCUTANEOUS NEPHROSTOMY BOTULINUM TOXIN INJECTION TO EXTRAOCULAR MUSCLE 08/18/2019 PROCEDURE:HYBRID IVC FILTER INSERTION;COMMENT:inserted by Dr Griffin TOTAL KNEE ARTHROPLASTY 08/19/2019 Right PROCEDURE:TOTAL KNEE ARTHROPLASTY;COMMENT:Procedu re: REPLACEMENT TOTAL KNEE; Surgeon: Frank Ramesh MD; Location: [facility] [place] ([facility]); Service: Orthopedics; Laterality: Right; TOTAL KNEE ARTHROPLASTY 12/28/2019 Left PROCEDURE:TOTAL KNEE ARTHROPLASTY;COMMENT:Procedu re: REPLACEMENT TOTAL KNEE; Surgeon: Frank Ramesh MD; Location: [facility] [place] ([facility]); Service: Orthopedics; Laterality: Left; Medical History Medical History Date Comments Bladder mass DX:Bladder mass Rheumatoid arthritis (CMS/HCC) D X:Rheumatoid arthritis (HCC) Degenerative arthritis of knee, bilateral DX:Degenerative arthritis of knee, bilateral Gross hematuria DX:Gross hematur ia;COMMENT:this was RT bladder cancer and resolved Hydronephrosis DX:Hydronephrosi s;COMMENT:resolved - Retention, urine DX:Retention, u rine Rheumatoid arthritis (CMS/HCC) D X:Rheumatoid arthritis (HCC) Osteoarthritis DX:Osteoarthriti s Hypertension DX:Hypertension Pleural effusion DX:Pleural effu patricia MEEK (dyspnea on exertion) DX:MEEK (dyspnea on exertion) Pneumonia DX:Pneumonia CHF (congestive heart failure) (CMS/HCC) DX:CHF (congestive heart failure) (HCC);COMMENT:DIASTOLIC Urinary incontinence DX:Urinary incontinence Nephrostomy status (CMS/HCC) DX: Nephrostomy status (HCC);COMMENT:TUBE LEFT Deep vein thrombosis (CMS/HCC) 2013 D X:Deep vein thrombosis (HCC);COMMENT:D/T IMMOBILITY; ON ELIQUIS History of transfusion DX:Histor y of transfusion;COMMENT:D/T CANCER TX Hypoalbuminemia DX:Hypoalbuminem ia Thrombocytosis DX:Thrombocytosi s CKD (chronic kidney disease) DX: CKD (chronic kidney disease);COMMENT:CKD 3 Chronic venous insufficiency DX: Chronic venous insufficiency Urinary urgency DX:Urinary urgen cy Peripheral neuropathy DX:Periphe ral neuropathy;COMMENT:hands & feet Cancer of overlapping sites of bladder (CMS/HCC) DX:Cancer of overlapping sit es of bladder (HCC);COMMENT:METASTATIC BLADDER-CHEMO, IMMUNOTHERAPY-TRECENTRIQ Q3W Cancer (CMS/HCC) DX:Cancer (HCC) ;COMMENT:Currently on Chemo Q 3 weeks Abnormal ECG DX:Abnormal ECG Anemia DX:Anemia;COMMEN T:IRON DEFICIENCY neoplastic Family History Medical History Relation Name Comments Hypertension Father Stroke Father Arthritis Mother Heart disease Mother MURMUR Hypertension Mother Relation Name Status Comments Father (Age 82) STROKE Mother (Age 90) MVA Social History Tobacco Use Types Packs/Day Years Used Date Smoking Tobacco: Former Cigarettes Q uit: 08/09/1989 Smokeless Tobacco: Never Tobacco Cessation:Counseling Given: Not Answered Alcohol Use Standard Drinks/Week Comments No 0 [...] ed Within the last 3 months, cayla w many times did you visit the [...] care for your loved ones. For example, child development professor or elderly care for an older adult? [...] not to disclose 2024 9:53 AM EST Obstetrics History Last Filed Vital Signs Vital Sign Reading Time Taken Comments Blood Pressure 155/90 05/27/2024 10:29 AM EST Pulse 100 05/27/2024 10:29 AM EST Temperature 36.5 ??C (97.7 ??F) 05/27/2024 1 0:29 AM EST Respiratory Rate 14 04/16/2024 10:5 0 AM EST Oxygen Saturation 97% 05/27/2024 10: 29 AM EST Inhaled Oxygen Concentration - - Weight 47.1 kg (103 lb 12.8 oz) 025 10:29 AM EST Height 165.1 cm (5' 5 ) 02/05/2024 11:3 5 AM EST Body Mass Index 17.27 02/05/2024 11:35 AM EST Plan of Treatment Upcoming Encounters Date Type Department Care Team (Late st Contact Info) Description 07/13/2024 10:00 AM EDT Appointment [facility] Interventional Radiology [address] [place] [phone] 07/22/2024 10:30 AM EDT Office Visit [facility] Hematology Oncology [address] [place] [phone] Felicitas Macdonald MD [address] [place] [phone] 11/11/2024 1:00 PM EDT Office Visit Nephrology [address] [phone] Efe Ramirez MD [address] [phone] 04/20/2025 2:00 PM EST Office Visit [facility] [address] [phone] Rolanda Avila MD [address] [place] [address] Health Maintenance Due Date Last Done Comments Breast Cancer Screening 1950 DTaP,Tdap,and Td Vaccines (1 - Tdap) 1968 Zoster Vaccines (1 of 2) 1969 Medicare Annual Wellness Visit 03/01/2022 Osteoporosis Screening (Bone Density Screening) 03/01/2022 Depression Screening 04/16/2025 04/16/2024, 09/12/19 23 Social Influencers of Health Screening 04/16/2025 04/16/2024 Falls Risk Assessment 05/27/2025 05/27/2024, 023 Hypertension/CHF/CAD Annual BMP Blood Test 06/04/2025 06/04/2024, 05/19/2024, 04/21/2024, Additional history exists Colorectal Cancer Screening: Colonoscopy 11/22/2026 11/22/2016 Cholesterol Screening (Lipid Panel) 04/02/2028 04/02/2023 Hepatitis C Screening Completed 06/08/2011 Pneumococcal Vaccine: 50+ Years Completed 01/05/2020, 12/31/2018 COVID-19 Vaccine Discontinued 01/09/2021, 12/19/2020 Influenza Vaccine Completed 11/21/2023, , 01/09/2022, Additional history exists RSV Immunization Patients 60+ Years Old Completed 11/21/2023 HIB Vaccines Aged Out No longer eligi ble based on patient's age to complete this topic HPV Vaccines Aged Out No longer eligi ble based on patient's age to complete this topic Hepatitis A Vaccines Aged Out No long er eligible based on patient's age to complete this topic Hepatitis B Vaccines Aged Out No long er eligible based on patient's age to complete this topic IPV Vaccines Aged Out No longer eligi ble based on patient's age to complete this topic MMR Vaccines Aged Out No longer eligi ble based on patient's age to complete this topic Meningococcal ACWY Vaccine Aged Out N o longer eligible based on patient's age to complete this topic Meningococcal B Vacine Aged Out No lo nger eligible based on patient's age to complete this topic RSV Immunization Patients Under 20 months Aged Out No longer eligible based on patient's age to complete this topic Varicella Vaccines Aged Out No longer eligible based on patient's age to complete this topic Medical Devices Implanted Type Area Solar Thermal Technician Device Identifier Shelf Expiration Date Model / Serial / Lot Cement Bone Simplex High Viscosity 20ml 40gm 10\Pack - [id number] Implanted:Qty: 1 on 08/19/2019 by Frank Ramesh MD Right: Knee [employer] 05/22/2020 6194-1-010 / / [id number] Cement Bone Simplex High Viscosity 20ml 40gm 10\[employer] - [id number] Implanted:Qty: 1 on 08/19/2019 by Frank Ramesh MD Right: Knee [employer] 05/22/2020 6194-1-010 / / [id number] Component Triathlon 3 Posterior Stabilized Cemented Femoral - [id number] Implanted:Qty: 1 on 08/19/2019 by Frank Ramesh MD Right: Knee [employer] [id number] 09/01/2023 5515-F-302 / / [id number] Baseplate Triathlon 3 [place] Totl Stabilized Cocr Tibial - [id number] Implanted:Qty: 1 on 08/19/2019 by Frank Ramesh MD Right: Knee [employer] [id number] 10/13/2023 5521-B-300 / / [id number] Stem Triathlon 50mm 12mm Cemented Totl Stabilized Cocr - [id number] Implanted:Qty: 1 on 08/19/2019 by Frank Ramesh MD Right: Knee [employer] [id number] 01/28/2024 5560-S-112 / / [id number] Component Triathlon 9mm 33mm Symmetric X3 Ptlar Knee - [id number] Implanted:Qty: 1 on 08/19/2019 by Frank Ramesh MD Right: Knee [employer] [id number] 12/16/2023 5550-G-339 / / [id number] Plug Artisan Medium 25mm Plug Bone Cement - [id number] Implanted:Qty: 1 on 08/19/2019 by Frank Ramesh MD Right: Knee [employer] [id number] 02/16/2024 6215-5-011 / / [id number] Insert Triathlon 3 9mm Totl Stabilized Plus X3 Tibial Knee - [id number] Implanted:Qty: 1 on 08/19/2019 by Frank Ramesh MD Right: Knee [employer] [id number] 01/15/2023 5537-G-309 / / [id number] Cement Bone Simplex High Viscosity 20ml 40gm 10\Pack - [id number] Implanted:Qty: 1 on 12/28/2019 by Frank Ramesh MD Left: Knee [employer] [id number] 09/21/2020 6194-1-010 / / [id number] Plug Artisan Medium 25mm Plug Bone Cement - [id number] Implanted:Qty: 1 on 12/28/2019 by Frank Ramesh MD Left: Knee [employer] [id number] 10/21/2024 6215-5-011 / / [id number] Peg Triathlon Modular Fix Distal Femur Knee - [id number] Implanted:Qty: 1 on 12/28/2019 by Frank Ramesh MD Left: Knee [employer] [id number] 05/13/2024 5575-X-000 / / [id number] Component Triathlon 9mm 33mm Symmetric X3 Ptlar Knee - [id number] Implanted:Qty: 1 on 12/28/2019 by Frank Ramesh MD Left: Knee [employer] [id number] 11/03/2024 5550-G-339 / / [id number] Baseplate Triathlon 3 [place] Totl Stabilized Cocr Tibial - [id number] Implanted:Qty: 1 on 12/28/2019 by Frank Ramesh MD Left: Knee [employer] [id number] 02/13/2024 5521-B-300 / / [id number] Component Triathlon 3 Posterior Stabilized Cemented Femoral - [id number] Implanted:Qty: 1 on 12/28/2019 by Frank Ramesh MD Left: Knee [employer] [id number] 11/05/2022 5515-F-301 / / [id number] Stem Triathlon 50mm 12mm Cemented Totl Stabilized Cocr - [id number] Implanted:Qty: 1 on 12/28/2019 by Frank Ramesh MD Left: Knee [employer] [id number] 01/04/2024 5560-S-112 / / [id number] Insert Triathlon 3 9mm Totl Stabilized Plus X3 Tibial Knee - [id number] Implanted:Qty: 1 on 12/28/2019 by Frank Ramesh MD Left: Knee [employer] [id number] 05/07/2023 5537-G-309 / / [id number] Cement Bone Simplex High Viscosity 20ml 40gm 10\[employer] - [id number] Implanted:Qty: 1 on 12/28/2019 by Frank Ramesh MD Left: Knee [employer] [id number] 10/22/2020 6194-1-010 / / [id number] Procedures Procedure Name Priority Date/Time Associated Diagnosis Comments COMPLETE BLOOD COUNT Routine 06/04/2024 10:37 AM EDT Long-term use of immunosuppressant medication SEDIMENTATION RATE Routine 06/04/2024 10:37 AM EDT Long-term use of immunosuppressant medication ASPARTATE AMINOTRANSFERASE Routine 06/04/2024 10:37 AM EDT Long-term use of immunosuppressant medication ALANINE AMINOTRANSFERASE Routine 06/04/2024 10:37 AM EDT Long-term use of immunosuppressant medication CREATININE, SERUM Routine 06/04/2024 10:37 AM EDT Long-term use of immunosuppressant medication CBC WITH AUTO DIFFERENTIAL Routine 05/19/2024 10:25 AM EST Malignant neoplasm of overlapping sites of bladder (CMS/HCC) THYROID STIMULATING HORMONE Routine 05/19/2024 10:25 AM EST Malignant neoplasm of overlapping sites of bladder (CMS/HCC) Hypothyroidism due to medication COMPREHENSIVE METABOLIC PANEL Routine 05/19/2024 10:25 AM EST Malignant neoplasm of overlapping sites of bladder (CMS/HCC) CBC AND DIFFERENTIAL Routine 05/19/2024 10:25 AM EST Malignant neoplasm of overlapping sites of bladder (CMS/HCC) CBC WITH AUTO DIFFERENTIAL Routine 04/21/2024 10:09 AM EST Malignant neoplasm of overlapping sites of bladder (CMS/HCC) THYROID STIMULATING HORMONE Routine 04/21/2024 10:09 AM EST Malignant neoplasm of overlapping sites of bladder (CMS/HCC) Hypothyroidism due to medication COMPREHENSIVE METABOLIC PANEL Routine 04/21/2024 10:09 AM EST Malignant neoplasm of overlapping sites of bladder (CMS/HCC) CBC AND DIFFERENTIAL Routine 04/21/2024 10:09 AM EST Malignant neoplasm of overlapping sites of bladder (CMS/HCC) IR EXCHANGE CATH NEPHROSTOMY LEFT Routine 04/14/2024 11:42 AM EST [address] CHEST/ABDOMEN/PELVIS WO CONTRAST Routine 03/26/2024 10:39 AM EST Malignant neoplasm of overlapping sites of bladder (CMS/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) Lung nodules THYROID STIMULATING HORMONE Routine 03/24/2024 10:09 AM EST Hypothyroidism due to medication Malignant neoplasm of overlapping sites of bladder (CMS/HCC) CBC WITH AUTO DIFFERENTIAL Routine 03/24/2024 10:09 AM EST Malignant neoplasm of overlapping sites of bladder (CMS/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) Hypothyroidism due to medication AMYLASE Routine 03/24/2024 10:09 AM EST Malignant neoplasm of overlapping sites of bladder (CMS/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) Hypothyroidism due to medication LIPASE Routine 03/24/2024 10:09 AM EST Malignant neoplasm of overlapping sites of bladder (CMS/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) Hypothyroidism due to medication COMPREHENSIVE METABOLIC PANEL Routine 03/24/2024 10:09 AM EST Malignant neoplasm of overlapping sites of bladder (CMS/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) Hypothyroidism due to medication CBC AND DIFFERENTIAL Routine 03/24/2024 10:09 AM EST Malignant neoplasm of overlapping sites of bladder (CMS/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) Hypothyroidism due to medication LIPID PANEL Routine 04/02/2023 COLONOSCOPY Routine 11/22/2016 HEPATITIS C SCREENING Routine 06/08/2011 from Last 3 Months or Most Recently Relevant to Health Maintenance Results * (ABNORMAL) Creatinine (06/04/2024 10:37 AM EDT) Creatinine 1.81(H) 0.50 - 1.10 mg/dL LAB CHEMISTRY METHOD 06/04/2024 2:[address] [facility] eGFR 29(L) >=60 mL/min/1. 73m2 LAB CHEMISTRY METHOD 06/04/2024 2:[address] [facility] Comment:Calculation based on the??Chronic Kidney Disease Epidemiology Collaboration (CKD-EPI) equation refit??without adjustment for race. Blood Venous blood specimen / Unknown Venipuncture / Unknown 06/04/2024 10:37 AM EDT 06/04/2024 10:37 AM EDT us Guanakito Nicol Chilel MD LAB BLOOD ORDERABLES Maye l Result [facility] [address] [place] [address], * (ABNORMAL) Sedimentation rate (06/04/2024 10:37 AM EDT) Sed Rate 63(H) 0 - 30 mm/hr LAB HEMETOLOGY METHOD 06/04/2024 12:[address] [facility] Blood Venous blood specimen / Unknown Venipuncture / Unknown 06/04/2024 10:37 AM EDT 06/04/2024 10:37 AM EDT us Guanakito Chilel MD LAB BLOOD ORDERABLES Maye savannah Result [facility] [address] [place] [address], [place] [phone] * (ABNORMAL) Complete blood count (06/04/2024 10:37 AM EDT) [facility] WBC 8.5 4.8 - 10.8 K/mcL LAB HEMETOLOGY METHOD 06/04/2024 12:[address] [facility] RBC 4.10 3.80 - 4.80 M/mcL LAB HEMETOLOGY METHOD [facility]/04[facility] Hemoglobin 10.8(L) 11.5 - 16.0 g/dL LAB HEMETOLOGY METHOD 06/04/2024 12:[address] [facility] Hematocrit 35.4 35.0 - 47.0 % LAB HEMETOLOGY METHOD 06/04/2024 12:[address] [facility] MCV 85.7 79.0 - 98.0 FL LAB HEMETOLOGY METHOD 06/04/2024 12:17 PM [facility] MCH 26.2(L) 27.0 - 32.0 pcg LAB HEMETOLOGY METHOD 06/04/2024 12:[address] [facility] MCHC 30.5(L) 32.0 - 37.0 g/dL LAB HEMETOLOGY METHOD 06/04/2024 12:17 PM [facility] RDW 17.0(H) 11.0 - 15.0 % LAB HEMETOLOGY METHOD 06/04/2024 12:17 PM [facility] Platelets 488(H) 130 - 400 K/mcL LAB HEMETOLOGY METHOD 06/04/2024 12:[address] [facility] MPV 9.4 7.0 - 11.0 FL LAB HEMETOLOGY METHOD 06/04/2024 12:[address] [facility] NRBC 0.0 <1.0 % LAB HEMETOLOGY METHOD 06/04/2024 12:[address] [facility] NRBC Absolute 0.00 <0.10 K/mcL LAB HEMETOLOGY METHOD 06/04/2024 12:[address] [facility] Blood Venous blood specimen / Unknown Venipuncture / Unknown 06/04/2024 10:37 AM EDT 06/04/2024 10:37 AM EDT Guanakito Chilel MD LAB BLOOD ORDERABLES Maye l Result Performing Organization Address City/[facility]/ZIP Co de Phone Number [facility] [address] [place] [address], * Alanine aminotransferase (06/04/2024 10:37 AM EDT) ALT (SGPT) 23 10 - 60 unit/L LAB CHEMISTRY METHOD 06/04/2024 2:[address] [facility] Blood Venous blood specimen / Unknown Venipuncture / Unknown 06/04/2024 10:37 AM EDT 06/04/2024 10:37 AM EDT Guanakito Chilel MD LAB BLOOD ORDERABLES Maye l Result [facility] [address] [place] [address], [place] [phone] * Aspartate aminotransferase (06/04/2024 10:37 AM EDT) AST (SGOT) 19 10 - 42 unit/L LAB CHEMISTRY METHOD 06/04/2024 2:[address] [facility] Blood Venous blood specimen / Unknown Venipuncture / Unknown 06/04/2024 10:37 AM EDT 06/04/2024 10:37 AM EDT us Guanakito Chilel MD LAB BLOOD ORDERABLES Maye savannah Result [facility] [address] [place] [address], [place] [phone] * (ABNORMAL) CBC auto differential (05/19/2024 10:25 AM EST) Only the most recent of3 resultswithin the time period is included. WBC 6.6 4.8 - 10.8 K/mcL LAB HEMETOLOGY METHOD 05/19/2024 12:39 PM [facility] RBC 4.30 3.80 - 4.80 M/mcL LAB HEMETOLOGY METHOD 05/19/2024 12:39 PM [facility] Hemoglobin 11.0(L) 11.5 - 16.0 g/dL LAB HEMETOLOGY METHOD 05/19/2024 12:39 PM [facility] Hematocrit 36.9 35.0 - 47.0 % LAB HEMETOLOGY METHOD 05/19/2024 12:39 PM [facility] MCV 85.6 79.0 - 98.0 FL LAB HEMETOLOGY METHOD 05/19/2024 12:39 PM [facility] MCH 25.5(L) 27.0 - 32.0 pcg LAB HEMETOLOGY METHOD 05/19/2024 12:39 PM [facility] MCHC 29.8(L) 32.0 - 37.0 g/dL LAB HEMETOLOGY METHOD 05/19/2024 12:39 PM [facility] RDW 16.6(H) 11.0 - 15.0 % LAB HEMETOLOGY METHOD 05/19/2024 12:39 PM [facility] Platelets 424(H) 130 - 400 K/mcL LAB HEMETOLOGY METHOD 05/19/2024 12:39 PM [facility] MPV 9.8 7.0 - 11.0 FL LAB HEMETOLOGY METHOD 05/19/2024 12:39 PM [facility] NRBC 0.0 <1.0 % LAB HEMETOLOGY METHOD 05/19/2024 12:39 PM [facility] NRBC Absolute 0.00 <0.10 K/mcL LAB HEMETOLOGY METHOD 05/19/2024 12:39 PM [facility] Neutrophils Relative 73.2 % LAB HEMETOLOGY METHOD 05/19/2024 12:39 PM [facility] Lymphocytes Relative 15.5 % LAB HEMETOLOGY METHOD 05/19/2024 12:39 PM [facility] Monocytes Relative 10.0 % LAB HEMETOLOGY METHOD 05/19/2024 12:39 PM [facility] Eosinophils Relative 0.0 % LAB HEMETOLOGY METHOD 05/19/2024 12:39 PM [facility] Basophils Relative 0.8 % LAB HEMETOLOGY METHOD 05/19/2024 12:39 PM [facility] Immature Granulocytes Relative 0.5 % LAB HEMETOLOGY METHOD 05/19/2024 12:39 PM [facility] Neutrophils Absolute 4.82 1.50 - 7.00 K/mcL LAB HEMETOLOGY METHOD 05/19/2024 12:39 PM [facility] Lymphocytes Absolute 1.02 1.00 - 5.00 K/mcL LAB HEMETOLOGY METHOD 05/19/2024 12:39 PM [facility] Monocytes Absolute 0.66 0.20 - 1.00 K/mcL LAB HEMETOLOGY METHOD 05/19/2024 12:39 PM [facility] Eosinophils Absolute 0.00 0.00 - 0.50 K/[facility] LAB HEMETOLOGY METHOD 05/19/2024 12:[address] [facility] Basophils Absolute 0.05 0.00 - 0.20 K/[facility] LAB HEMETOLOGY METHOD 05/19/2024 12:[address] [facility] Immature Granulocytes Absolute 0.03 0.00 - 0.03 K/[facility] LAB HEMETOLOGY METHOD 05/19/2024 12:[address] [facility] Blood Venous blood specimen / Unknown Venipuncture / Unknown 05/19/2024 10:25 AM EST 05/19/2024 10:26 AM EST us Felicitas Macdonald MD LAB BLOOD ORDERABLE S Final Result Performing Organization Address City/[facility]/ZIP Co de Phone Number [facility] [address] [place] [address], * Thyroid stimulating hormone (05/19/2024 10:25 AM EST) Only the most recent of3 resultswithin the time period is included. Pathologist [facility] TSH 3.19 0.40 - 4.00 mcIU/mL LAB CHEMISTRY METHOD 05/19/2024 2:[address] [facility] Blood Venous blood specimen / Unknown Venipuncture / Unknown 05/19/2024 10:25 AM EST 05/19/2024 10:26 AM EST Felicitas Macdonald MD LAB BLOOD ORDERABLE S Final Result Performing Organization Address City/[facility]/ZIP Co de Phone Number [facility] [address] [place] [address], * (ABNORMAL) Comprehensive metabolic panel (05/19/2024 10:25 AM EST) Only the most recent of3 resultswithin the time period is included. Pathologist [facility] Sodium 140 133 - 145 mmol/L LAB CHEMISTRY METHOD 05/19/2024 2:23 PM [facility] Potassium 4.6 3.5 - 5.5 mmol/L LAB CHEMISTRY METHOD 05/19/2024 2:23 PM [facility] Chloride 112(H) 96 - 110 mmol/L LAB CHEMISTRY METHOD 05/19/2024 2:23 PM [facility] CO2 20(L) 21 - 32 mmol/L LAB CHEMISTRY METHOD 05/19/2024 2:23 PM [facility] Anion Gap 8 3 - 11 LAB CHEMISTRY METHOD 05/19/2024 2:23 PM [facility] Glucose 88 70 - 100 mg/dL LAB CHEMISTRY METHOD 05/19/2024 2:23 PM [facility] BUN 37(H) 5 - 25 mg/dL LAB CHEMISTRY METHOD 05/19/2024 2:23 PM [facility] Creatinine 1.79(H) 0.50 - 1.10 mg/dL LAB CHEMISTRY METHOD 05/19/2024 2:23 PM [facility] eGFR 29(L) >=60 mL/min/1. 73m2 LAB CHEMISTRY METHOD 05/19/2024 2:23 PM [facility] Comment:Calculation based on the??Chronic Kidney Disease Epidemiology Collaboration (CKD-EPI) equation refit??without adjustment for race. BUN/Creatinine Ratio 20.7 LAB CHEMISTRY METHOD 05/19/2024 2:23 PM [facility] Calcium 9.7 8.5 - 10.5 mg/dL LAB CHEMISTRY METHOD 05/19/2024 2:23 PM [facility] AST (SGOT) 21 10 - 42 unit/L LAB CHEMISTRY METHOD 05/19/2024 2:23 PM [facility] ALT (SGPT) 19 10 - 60 unit/L LAB CHEMISTRY METHOD 05/19/2024 2:23 PM [facility] Alkaline Phosphatase 109 42 - 121 unit/L LAB CHEMISTRY METHOD 05/19/2024 2:[address] [facility] Total Protein 7.3 6.0 - 8.0 g/dL LAB CHEMISTRY METHOD 05/19/2024 2:[address] [facility] Albumin 3.7 3.2 - 5.0 g/dL LAB CHEMISTRY METHOD 05/19/2024 2:[address] [facility] Total Bilirubin 0.5 0.0 - 1.4 mg/dL LAB CHEMISTRY METHOD 05/19/2024 2:[address] [facility] Blood Venous blood specimen / Unknown Venipuncture / Unknown 05/19/2024 10:25 AM EST 05/19/2024 10:26 AM EST us Subrammaryanne Macdonald MD LAB BLOOD ORDERABLE S Final Result [facility] [address] [place] [address], [place] [phone] * IR Exchange Cath Nephrostomy Left (04/14/2024 11:42 AM EST) Anatomical Region Laterality Modality Kidney Left Interventional R adiology 04/15/2024 9:37 AM EST Narrative 04/15/2024 9:38 AM EST Indication: Ureteral obstruction with routine left nephrostomy tube change Technique/findings: Written informed consent obtained and patient placed in the right lateral decubitus position on the angiographic table. Left-sided Nephrostomy tube was prepped using maximum sterile barrier. Nephrostogram demonstrates pigtail formed within a renal calyx. Catheter cut and removed over short Amplatz wire. New 8 Swedish nephrostomy tube advanced over the wire with pigtail formed in the renal pelvis. Water-soluble contrast injected to confirm placement. Catheter locked in place and sterile dressing applied. Total patient dose (air kerma): 225 mGy Conclusion: Left-sided nephrostomy tube exchange. -------- FINAL REPORT -------- Dictated By: Coy Taylor Dictated Date: 04/15/2024 09:37 ET Assigned Physician: Coy Taylor Reviewed and Electronically Signed By: Coy Taylor Signed Date: 04/15/2024 09:38 ET Workstation ID: [id number] Transcribed By: Self Edit Transcribed Date: 04/15/2024 09:37 ET Procedure Note Coy Taylor MD - 04/15/2024 Indication: Ureteral obstruction with routine left nephrostomy tubechange Technique/findings: Written informed consent obtained and patient placedin the right lateral decubitus position on the angiographic table.Left-sided Nephrostomy tube was prepped using maximum sterile barrier.Nephrostogram demonstrates pigtail formed within a renal calyx. Cathetercut and removed over short Amplatz wire. New 8 Swedish nephrostomy tubeadvanced over the wire with pigtail formed in the renal pelvis.Water-soluble contrast injected to confirm placement. Catheter locked inplace and sterile dressing applied. Total patient dose (air kerma): 225 mGy Conclusion: Left-sided nephrostomy tube exchange. -------- FINAL REPORT -------- Dictated By: Coy Taylor Dictated Date: 04/15/2024 09:37 ET Assigned Physician: Coy Taylor Reviewed and Electronically Signed By: Coy Taylor Signed Date: 04/15/2024 09:38 ET Workstation ID: [id number] Transcribed By: Self Edit Transcribed Date: 04/15/2024 09:37 ET us Lauryn Abreu [employer] OPERATOR IMG IR PROCEDURES Final R esult * CT Chest/Abdomen/Pelvis wo Contrast (03/26/2024 10:39 AM EST) Anatomical Region Laterality Modality Body Computed Tomogra phy 03/31/2024 11:1 7 AM EST Impressions 03/31/2024 11:40 AM EST Impression: 1. Stable pulmonary nodules, the largest in the left upper lobe. 2. No developing thoracic lymphadenopathy or abdominal metastatic disease. 3. Persistent bilateral moderate hydroureteronephrosis, without significant change. The left nephrostomy catheter is again noted to be somewhat peripherally positioned; correlation with functional status recommended. Teler[place] ([id number]) -------- FINAL REPORT -------- Dictated By: Johana Waters Dictated Date: 03/31/2024 11:17 ET Assigned Physician: Johana Waters Reviewed and Electronically Signed By: Johana Waters Signed Date: 03/31/2024 11:40 ET Workstation ID: [id number] Transcribed By: Self Edit Transcribed Date: 03/31/2024 11:17 ET Narrative 03/31/2024 11:40 AM EST History: Bladder carcinoma, invasive. Metastatic disease. Assess treatment response. Comparison: 11/27/23 Technique: Helical volumetric imaging of the chest, abdomen and pelvis was performed without intravenous or oral contrast. DLP: 616.74 mGy/cm [place] VCT Iterative reconstruction technique Findings: Chest: The trachea and central bronchial tree remain patent. 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 Left upper lobe solid, noncalcified nodules are again seen and appear to be forming around the periphery of emphysematous airspaces. These include an approximately 10 x 13 mm left apical nodule (image 31 series 3), and a 10 x 13 mm left upper lobe nodule (image 52). There has been no significant change in the most recent study. Subcentimeter right apical solid, noncalcified nodules are also unchanged, including a 3 mm nodule (image 50) and a 4 mm nodule (image 44). Patchy biapical groundglass opacities are also similar. Coarse, curvilinear bandlike opacities in the lower lungs are without significant change, consistent with scarring or atelectasis. There are minimal foci of peripheral tree-in-bud opacities scattered in the left lower lung, appearing new, most likely distal airways infection/mucous plugging. No pleural or pericardial effusions are seen. Mild multichamber cardiomegaly is without significant change, with severe coronary artery calcification again noted. No developing thoracic lymphadenopathy is seen. Abdomen/pelvis: The liver remains normal in size and configuration. An 11 mm circumscribed round hypoattenuating lesion in the subcapsular posterior right hepatic lobe is unchanged, most likely a cyst. The gallbladder is physiologically distended. No evidence of biliary obstruction is seen. The spleen is absent. The pancreas and right adrenal gland are unremarkable. Mild nodularity of the left adrenal gland is stable. The kidneys exhibit diffuse parenchymal thinning, similar to previous. A percutaneous left nephrostomy tube is somewhat peripherally positioned, appearing to lie within the renal parenchyma, in the posterior interpolar aspect of the left kidney, unchanged. There is moderate bilateral hydroureteronephrosis to the level of the bladder, with diffuse bilateral urothelial thickening. A 6 mm group of nonobstructing calculi is seen in the lower pole of the right kidney, layering dependently within a dilated calyx, unchanged. No ascites is seen. No developing lymphadenopathy is seen. The urinary bladder is unremarkable in appearance. The uterus is retroverted but otherwise unremarkable for age. No evidence of bowel obstruction is identified. Diverticulosis of the colon is present. No abnormal perienteric or pericolonic fat stranding is seen. Musculoskeletal: Deformity of the right inferior pubic ramus is consistent with an old, healed fracture, unchanged. There is coarsening of the trabecular pattern within the right pubic bones and ischium, stable from previous, of uncertain significance. There are severe bilateral glenohumeral arthritic changes. Fluid distended bursa are noted within both shoulders, compatible with bursitis. Approximately 6 mm of anterior subluxation are noted at C6-7, accompanied by disc degenerative changes, unchanged from the previous study. Procedure Note Johana Waters MD - 03/31/2024 History: Bladder carcinoma, invasive. Metastatic disease. Assess treatmentresponse. Comparison: 11/27/23 Technique: Helical volumetric imaging of the chest, abdomen and pelvis wasperformed without intravenous or oral contrast. DLP: 616.74 mGy/cm [place] VCT Iterative reconstruction technique Findings: Chest: The trachea and central bronchial tree remain patent. Severe emphysematousdestruction of the pulmonary parenchyma is again noted. Left upper lobe solid, noncalcified nodules are again seen and appear horace forming around the periphery of emphysematous airspaces. These includean approximately 10 x 13 mm left apical nodule (image 31 series 3), and a10 x 13 mm left upper lobe nodule (image 52). There has been nosignificant change in the most recent study. Subcentimeter right apical solid, noncalcified nodules are also unchanged,including a 3 mm nodule (image 50) and a 4 mm nodule (image 44). Patchybiapical groundglass opacities are also similar. Coarse, curvilinear bandlike opacities in the lower lungs are withoutsignificant change, consistent with scarring or atelectasis. There are minimal foci of peripheral tree-in-bud opacities scattered inthe left lower lung, appearing new, most likely distal airwaysinfection/mucous plugging. No pleural or pericardial effusions are seen. Mild multichambercardiomegaly is without significant change, with severe coronary arterycalcification again noted. No developing thoracic lymphadenopathy isseen. Abdomen/pelvis: The liver remains normal in size and configuration. An 11 mm circumscribedround hypoattenuating lesion in the subcapsular posterior right hepaticlobe is unchanged, most likely a cyst. The gallbladder is physiologicallydistended. No evidence of biliary obstruction is seen. The spleen is absent. The pancreas and right adrenal gland areunremarkable. Mild nodularity of the left adrenal gland is stable. The kidneys exhibit diffuse parenchymal thinning, similar to previous. Apercutaneous left nephrostomy tube is somewhat peripherally positioned,appearing to lie within the renal parenchyma, in the posterior interpolaraspect of the left kidney, unchanged. There is moderate bilateralhydroureteronephrosis to the level of the bladder, with diffuse bilateralurothelial thickening. A 6 mm group of nonobstructing calculi is seen inthe lower pole of the right kidney, layering dependently within a dilatedcalyx, unchanged. No ascites is seen. No developing lymphadenopathy is seen. The urinarybladder is unremarkable in appearance. The uterus is retroverted butotherwise unremarkable for age. No evidence of bowel obstruction is identified. Diverticulosis of thecolon is present. No abnormal perienteric or pericolonic fat stranding isseen. Musculoskeletal: Deformity of the right inferior pubic ramus is consistent with an old,healed fracture, unchanged. There is coarsening of the trabecular patternwithin the right pubic bones and ischium, stable from previous, ofuncertain significance. There are severe bilateral glenohumeral arthriticchanges. Fluid distended bursa are noted within both shoulders, compatiblewith bursitis. Approximately 6 mm of anterior subluxation are noted atC6-7, accompanied by disc degenerative changes, unchanged from theprevious study. IMPRESSION: Impression: 1. Stable pulmonary nodules, the largest in the left upper lobe. 2. No developing thoracic lymphadenopathy or abdominal metastaticdisease. 3. Persistent bilateral moderate hydroureteronephrosis, withoutsignificant change. The left nephrostomy catheter is again noted to besomewhat peripherally positioned; correlation with functional statusrecommended. Telerad HITESH ([id number]) -------- FINAL REPORT -------- Dictated By: Johana Waters Dictated Date: 03/31/2024 11:17 ET Assigned Physician: Johana Waters Reviewed and Electronically Signed By: Johana Waters Signed Date: 03/31/2024 11:40 ET Workstation ID: [id number] Transcribed By: Self Edit Transcribed Date: 03/31/2024 11:17 ET Felicitas Macdonald MD IMG CT PROCEDURES F inal Result * Lipase (03/24/2024 10:09 AM EST) Lipase 33 13 - 75 unit/L LAB CHEMISTRY METHOD 03/24/2024 12:[address] [facility] Blood Venous blood specimen / Unknown Venipuncture / Unknown 03/24/2024 10:09 AM EST 03/24/2024 10:09 AM EST Felicitas Macdonald MD LAB BLOOD ORDERABLE S Final Result [facility] [address] [place] [address], * Amylase (03/24/2024 10:09 AM EST) Amylase 38 25 - 115 unit/L LAB CHEMISTRY METHOD 03/24/2024 12:[address] [facility] Blood Venous blood specimen / Unknown Venipuncture / Unknown 03/24/2024 10:09 AM EST 03/24/2024 10:09 AM EST us Subrammaryanne Macdonald MD LAB BLOOD ORDERABLE S Final Result [facility] [address] [place] [address], * Lipid panel (04/02/2023) Pathologist [facility] LDL/HDL Ratio 4 Triglycerides 117 mg/dL Cholesterol 225 mg/dL HDL 64 mg/dL LDL Cholesterol 138 mg/dL Blood Venous blood specimen / Unknown Historical Provider LAB BLOOD ORDERABLES Maye l Result * Colonoscopy (11/22/2016) Pathologist [facility] Colonoscopy Negative Anatomical Region Laterality Modality Other Historical Provider HEALTH MAINTENANCE Final Result * Hepatitis C Screening (06/08/2011) Pathologist [facility] Hepatitis C Screening Negative Historical Provider HEALTH MAINTENANCE Final Result from Last 3 Months or Most Recently Relevant to Health Maintenance Insurance MEDICARE [facility] Advance Directives Documents on File Type Date Recorded Patient Facing Baster Jumpbasting Expl anation Health Care Decision (hx) 10/17/2021 AD MONTERO DIRECTIVE Health Care Decision (hx) 10/17/2021 AD MONTERO DIRECTIVE Health Care Decision (hx) 10/17/2021 AD MONTERO DIRECTIVE Health Care Decision (hx) 10/17/2021 AD MONTERO DIRECTIVE Health Care Decision (hx) 10/17/2021 AD MONTERO DIRECTIVE Health Care Decision (hx) 10/17/2021 AD MONTERO DIRECTIVE Health Care Decision (hx) 10/17/2021 AD MONTERO DIRECTIVE Health Care Decision (hx) 10/17/2021 AD MONTERO DIRECTIVE Health Care Decision (hx) 10/17/2021 AD MONTERO DIRECTIVE Health Care Decision (hx) 10/17/2021 AD MONTERO DIRECTIVE Health Care Decision (hx) 10/17/2021 AD OMNTERO DIRECTIVE Health Care Decision (hx) 10/17/2021 AD MONTERO DIRECTIVE Health Care Decision (hx) 10/17/2021 AD MONTERO DIRECTIVE Health Care Decision (hx) 10/17/2021 AD MONTERO DIRECTIVE Health Care Decision (hx) 10/17/2021 AD MONTERO DIRECTIVE Health Care Decision (hx) 10/17/2021 AD MONTERO DIRECTIVE Health Care Decision (hx) 10/17/2021 AD MONTERO DIRECTIVE Health Care Decision (hx) 10/17/2021 AD MONTERO DIRECTIVE Health Care Decision (hx) 10/17/2021 AD MONTERO DIRECTIVE Health Care Decision (hx) 10/17/2021 AD MONTERO DIRECTIVE Health Care Decision (hx) 10/17/2021 AD MONTERO DIRECTIVE Health Care Decision (hx) 10/17/2021 AD MONTERO DIRECTIVE Health Care Decision (hx) 10/17/2021 AD MONTERO DIRECTIVE Health Care Decision (hx) 10/17/2021 AD MONTERO DIRECTIVE Health Care Decision (hx) 10/17/2021 AD MONTERO DIRECTIVE Health Care Decision (hx) 10/17/2021 AD MONTERO DIRECTIVE Health Care Decision (hx) 10/17/2021 AD MONTERO DIRECTIVE Health Care Decision (hx) 10/17/2021 AD MONTERO DIRECTIVE Health Care Decision (hx) 10/17/2021 AD MONTERO DIRECTIVE Health Care Decision (hx) 10/17/2021 AD MONTERO DIRECTIVE Health Care Decision (hx) 10/17/2021 AD MONTERO DIRECTIVE Health Care Decision (hx) 10/17/2021 AD MONTERO DIRECTIVE Health Care Decision (hx) 10/17/2021 AD MONTERO DIRECTIVE Health Care Decision (hx) 10/17/2021 AD MONTERO DIRECTIVE Health Care Decision (hx) 10/17/2021 AD MONTERO DIRECTIVE Health Care Decision (hx) 10/17/2021 AD MONTERO DIRECTIVE Health Care Decision (hx) 10/17/2021 AD MONTERO DIRECTIVE Health Care Decision (hx) 10/17/2021 AD MONTREO DIRECTIVE Health Care Decision (hx) 10/17/2021 AD MONTERO DIRECTIVE Health Care Decision (hx) 10/17/2021 AD MONTERO DIRECTIVE Health Care Decision (hx) 10/17/2021 AD MONTERO DIRECTIVE Health Care Decision (hx) 10/17/2021 AD MONTERO DIRECTIVE Health Care Decision (hx) 10/17/2021 AD MONTERO DIRECTIVE Health Care Decision (hx) 10/17/2021 AD MONTERO DIRECTIVE Health Care Decision (hx) 10/17/2021 AD MONTERO DIRECTIVE Health Care Decision (hx) 10/17/2021 AD MONTERO DIRECTIVE Health Care Decision (hx) 10/17/2021 AD MONTERO DIRECTIVE Health Care Decision (hx) 10/17/2021 AD MONTERO DIRECTIVE Health Care Decision (hx) 10/17/2021 AD MONTERO DIRECTIVE Health Care Decision (hx) 10/17/2021 AD MONTERO DIRECTIVE Health Care Decision (hx) 10/17/2021 AD MONTERO DIRECTIVE Health Care Decision (hx) 10/17/2021 AD MONTERO DIRECTIVE Health Care Decision (hx) 10/17/2021 AD MONTERO DIRECTIVE Health Care Decision (hx) 10/17/2021 AD MONTERO DIRECTIVE Health Care Decision (hx) 10/17/2021 AD MONTERO DIRECTIVE Health Care Decision (hx) 09/09/2018 AD MONTERO DIRECTIVE Health Care Decision (hx) 09/09/2018 AD MONTERO DIRECTIVE Health Care Decision (hx) 09/09/2018 AD MONTERO DIRECTIVE Health Care Decision (hx) 09/09/2018 AD MONTERO DIRECTIVE Health Care Decision (hx) 09/09/2018 AD MONTERO DIRECTIVE Health Care Decision (hx) 09/09/2018 AD MONTERO DIRECTIVE Health Care Decision (hx) 09/09/2018 AD MONTERO DIRECTIVE Health Care Decision (hx) 09/09/2018 AD MONTERO DIRECTIVE Health Care Decision (hx) 09/09/2018 AD MONTERO DIRECTIVE Health Care Decision (hx) 09/09/2018 AD MONTERO DIRECTIVE Health Care Decision (hx) 09/09/2018 AD MONTERO DIRECTIVE Health Care Decision (hx) 09/09/2018 AD MONTERO DIRECTIVE Health Care Decision (hx) 09/09/2018 AD MONTERO DIRECTIVE Health Care Decision (hx) 09/09/2018 AD MONTERO DIRECTIVE Health Care Decision (hx) 09/09/2018 AD MONTERO DIRECTIVE Health Care Decision (hx) 09/09/2018 AD MONTERO DIRECTIVE Health Care Decision (hx) 09/09/2018 AD MONTERO DIRECTIVE Health Care Decision (hx) 09/09/2018 AD MONTERO DIRECTIVE Health Care Decision (hx) 09/09/2018 AD MONTERO DIRECTIVE Health Care Decision (hx) 09/09/2018 AD MONTERO DIRECTIVE Health Care Decision (hx) 09/09/2018 AD MONTERO DIRECTIVE Health Care Decision (hx) 09/09/2018 AD MONTERO DIRECTIVE Health Care Decision (hx) 09/09/2018 AD MONTERO DIRECTIVE Health Care Decision (hx) 09/09/2018 AD MONTERO DIRECTIVE Health Care Decision (hx) 09/09/2018 AD MONTERO DIRECTIVE Health Care Decision (hx) 09/09/2018 AD MONTERO DIRECTIVE Health Care Decision (hx) 09/09/2018 AD MONTERO DIRECTIVE Health Care Decision (hx) 09/09/2018 AD MONTERO DIRECTIVE Health Care Decision (hx) 09/09/2018 AD MONTERO DIRECTIVE Health Care Decision (hx) 09/09/2018 AD MONTERO DIRECTIVE Health Care Decision (hx) 09/09/2018 AD MONTERO DIRECTIVE Health Care Decision (hx) 09/09/2018 AD MONTERO DIRECTIVE Health Care Decision (hx) 09/09/2018 AD MONTERO DIRECTIVE Health Care Decision (hx) 09/09/2018 AD MONTERO DIRECTIVE Health Care Decision (hx) 09/09/2018 AD MONTERO DIRECTIVE Health Care Decision (hx) 09/09/2018 AD MONTERO DIRECTIVE Health Care Decision (hx) 09/09/2018 AD MONTERO DIRECTIVE Health Care Decision (hx) 09/09/2018 AD MONTERO DIRECTIVE Health Care Decision (hx) 09/09/2018 AD MONTERO DIRECTIVE Health Care Decision (hx) 09/09/2018 AD MONTERO DIRECTIVE Health Care Decision (hx) 09/09/2018 AD MONTERO DIRECTIVE Health Care Decision (hx) 09/09/2018 AD MONTERO DIRECTIVE Health Care Decision (hx) 09/09/2018 AD MONTERO DIRECTIVE Health Care Decision (hx) 09/09/2018 AD MONTERO DIRECTIVE Health Care Decision (hx) 09/09/2018 AD MONTERO DIRECTIVE Health Care Decision (hx) 09/09/2018 AD MONTERO DIRECTIVE Health Care Decision (hx) 09/09/2018 AD MONTERO DIRECTIVE Health Care Decision (hx) 09/09/2018 AD MONTERO DIRECTIVE Health Care Decision (hx) 09/09/2018 AD MONTERO DIRECTIVE Health Care Decision (hx) 09/09/2018 AD MONTERO DIRECTIVE Health Care Decision (hx) 09/09/2018 AD MONTERO DIRECTIVE Health Care Decision (hx) 09/09/2018 AD MONTERO DIRECTIVE Health Care Decision (hx) 09/09/2018 AD MONTERO DIRECTIVE Health Care Decision (hx) 09/09/2018 AD MONTERO DIRECTIVE Health Care Decision (hx) 09/09/2018 AD MONTERO DIRECTIVE Health Care Decision (hx) 09/09/2018 AD MONTERO DIRECTIVE Health Care Decision (hx) 09/09/2018 AD MONTERO DIRECTIVE Health Care Decision (hx) 09/09/2018 AD MONTERO DIRECTIVE Health Care Decision (hx) 09/09/2018 AD MONTERO DIRECTIVE Health Care Decision (hx) 09/09/2018 AD MONTERO DIRECTIVE Health Care Decision (hx) 09/09/2018 AD MONTERO DIRECTIVE Health Care Decision (hx) 09/09/2018 AD MONTERO DIRECTIVE Health Care Decision (hx) 09/09/2018 AD MONTERO DIRECTIVE Health Care Decision (hx) 09/09/2018 AD MONTERO DIRECTIVE Health Care Decision (hx) 09/09/2018 AD MONTERO DIRECTIVE Health Care Decision (hx) 09/09/2018 AD MONTERO DIRECTIVE Health Care Decision (hx) 09/09/2018 AD MONTERO DIRECTIVE Health Care Decision (hx) 09/09/2018 AD MONTERO DIRECTIVE Health Care Decision (hx) 09/09/2018 AD MONTERO DIRECTIVE Health Care Decision (hx) 09/09/2018 AD MONTERO DIRECTIVE Health Care Decision (hx) 09/09/2018 AD MONTERO DIRECTIVE Health Care Decision (hx) 09/09/2018 AD MONTERO DIRECTIVE Health Care Decision (hx) 09/09/2018 AD MONTERO DIRECTIVE Health Care Decision (hx) 09/09/2018 AD MONTERO DIRECTIVE Health Care Decision (hx) 09/09/2018 AD MONTERO DIRECTIVE Health Care Decision (hx) 09/09/2018 AD MONTERO DIRECTIVE Health Care Decision (hx) 09/09/2018 AD MONTERO DIRECTIVE Health Care Decision (hx) 09/09/2018 AD MONTERO DIRECTIVE Health Care Decision (hx) 09/09/2018 AD MONTERO DIRECTIVE Health Care Decision (hx) 09/09/2018 AD MONTERO DIRECTIVE Health Care Decision (hx) 09/09/2018 AD MONTERO DIRECTIVE Health Care Decision (hx) 09/09/2018 AD MONTERO DIRECTIVE Health Care Decision (hx) 09/09/2018 AD MONTERO DIRECTIVE Health Care Decision (hx) 09/09/2018 AD MONTERO DIRECTIVE Health Care Decision (hx) 09/09/2018 AD MONTERO DIRECTIVE Health Care Decision (hx) 09/09/2018 AD MONTERO DIRECTIVE Health Care Decision (hx) 09/09/2018 AD MONTERO DIRECTIVE Health Care Decision (hx) 09/09/2018 AD MONTERO DIRECTIVE Health Care Decision (hx) 09/09/2018 AD MONTERO DIRECTIVE Health Care Decision (hx) 09/09/2018 AD MONTERO DIRECTIVE Health Care Decision (hx) 09/09/2018 AD MONTERO DIRECTIVE Health Care Decision (hx) 09/09/2018 AD MONTERO DIRECTIVE Health Care Decision (hx) 09/09/2018 AD MONTERO DIRECTIVE Health Care Decision (hx) 09/09/2018 AD MONTERO DIRECTIVE Health Care Decision (hx) 09/09/2018 AD MONTERO DIRECTIVE Health Care Decision (hx) 09/09/2018 AD MONTERO DIRECTIVE Health Care Decision (hx) 09/09/2018 AD MONTERO DIRECTIVE Health Care Decision (hx) 09/09/2018 AD MONTERO DIRECTIVE Health Care Decision (hx) 09/09/2018 AD MONTERO DIRECTIVE Health Care Decision (hx) 09/09/2018 AD MONTERO DIRECTIVE Health Care Decision (hx) 09/09/2018 AD MONTERO DIRECTIVE Health Care Decision (hx) 09/09/2018 AD MONTERO DIRECTIVE Health Care Decision (hx) 09/09/2018 AD MONTERO DIRECTIVE Health Care Decision (hx) 09/09/2018 AD MONTERO DIRECTIVE Health Care Decision (hx) 09/09/2018 AD MONTERO DIRECTIVE Health Care Decision (hx) 09/09/2018 AD MONTERO DIRECTIVE Health Care Decision (hx) 09/09/2018 AD MONTERO DIRECTIVE Health Care Decision (hx) 09/09/2018 AD MONTERO DIRECTIVE Health Care Decision (hx) 09/09/2018 AD MONTERO DIRECTIVE Health Care Decision (hx) 09/09/2018 AD MONTERO DIRECTIVE Health Care Decision (hx) 09/09/2018 AD MONTERO DIRECTIVE Health Care Decision (hx) 09/09/2018 AD MONTERO DIRECTIVE Health Care Decision (hx) 09/09/2018 AD MONTERO DIRECTIVE Health Care Decision (hx) 09/09/2018 AD MONTERO DIRECTIVE Health Care Decision (hx) 09/09/2018 AD MONTERO DIRECTIVE Health Care Decision (hx) 09/09/2018 AD MONTERO DIRECTIVE Health Care Decision (hx) 09/09/2018 AD MONTERO DIRECTIVE Health Care Decision (hx) 09/09/2018 AD MONTERO DIRECTIVE Health Care Decision (hx) 09/09/2018 AD MONTERO DIRECTIVE Health Care Decision (hx) 09/09/2018 AD MONTERO DIRECTIVE Health Care Decision (hx) 09/09/2018 AD MONTERO DIRECTIVE Health Care Decision (hx) 09/09/2018 AD MONTERO DIRECTIVE Health Care Decision (hx) 09/09/2018 AD MONTERO DIRECTIVE Health Care Decision (hx) 09/09/2018 AD MONTERO DIRECTIVE Health Care Decision (hx) 09/09/2018 AD MONTERO DIRECTIVE Health Care Decision (hx) 09/09/2018 AD MONTERO DIRECTIVE Health Care Decision (hx) 09/09/2018 AD MONTERO DIRECTIVE Health Care Decision (hx) 09/09/2018 AD MONTERO DIRECTIVE Health Care Decision (hx) 09/09/2018 AD MONTERO DIRECTIVE Health Care Decision (hx) 09/09/2018 AD MONTERO DIRECTIVE Health Care Decision (hx) 09/09/2018 AD MONTERO DIRECTIVE Health Care Decision (hx) 09/09/2018 AD MONTERO DIRECTIVE Health Care Decision (hx) 09/09/2018 AD MONTERO DIRECTIVE Health Care Decision (hx) 09/09/2018 AD MONTERO DIRECTIVE Health Care Decision (hx) 09/09/2018 AD MONTERO DIRECTIVE Health Care Decision (hx) 05/15/2018 AD MONTERO DIRECTIVE Health Care Decision (hx) 05/15/2018 AD MONTERO DIRECTIVE Health Care Decision (hx) 05/15/2018 AD MONTERO DIRECTIVE Health Care Decision (hx) 05/15/2018 AD MONTERO DIRECTIVE Health Care Decision (hx) 05/15/2018 AD MONTERO DIRECTIVE Health Care Decision (hx) 05/15/2018 AD MONTERO DIRECTIVE Health Care Decision (hx) 05/15/2018 AD MONTERO DIRECTIVE Health Care Decision (hx) 05/15/2018 AD MONTERO DIRECTIVE Health Care Decision (hx) 05/15/2018 AD MONTERO DIRECTIVE Health Care Decision (hx) 05/15/2018 AD MONTERO DIRECTIVE Health Care Decision (hx) 05/15/2018 AD MONTERO DIRECTIVE Health Care Decision (hx) 05/15/2018 AD MONTERO DIRECTIVE Health Care Decision (hx) 05/15/2018 AD MONTERO DIRECTIVE Health Care Decision (hx) 05/15/2018 AD MONTERO DIRECTIVE Health Care Decision (hx) 05/15/2018 AD MONTERO DIRECTIVE Health Care Decision (hx) 05/15/2018 AD MONTERO DIRECTIVE Health Care Decision (hx) 05/15/2018 AD MONTERO DIRECTIVE Health Care Decision (hx) 05/15/2018 AD MONTERO DIRECTIVE Health Care Decision (hx) 05/15/2018 AD MONTERO DIRECTIVE Health Care Decision (hx) 05/15/2018 AD MONTERO DIRECTIVE Health Care Decision (hx) 05/15/2018 AD MONTERO DIRECTIVE Health Care Decision (hx) 05/15/2018 AD MONTERO DIRECTIVE Health Care Decision (hx) 05/15/2018 AD MONTERO DIRECTIVE Health Care Decision (hx) 05/15/2018 AD MONTERO DIRECTIVE Health Care Decision (hx) 05/15/2018 AD MONTERO DIRECTIVE Health Care Decision (hx) 05/15/2018 AD MONTERO DIRECTIVE Health Care Decision (hx) 05/15/2018 AD MONTERO DIRECTIVE Health Care Decision (hx) 05/15/2018 AD MONTERO DIRECTIVE Health Care Decision (hx) 05/15/2018 AD MONTERO DIRECTIVE Health Care Decision (hx) 05/15/2018 AD MONTERO DIRECTIVE Health Care Decision (hx) 05/15/2018 AD MONTERO DIRECTIVE Health Care Decision (hx) 05/15/2018 AD MONTERO DIRECTIVE Health Care Decision (hx) 05/15/2018 AD MONTERO DIRECTIVE Health Care Decision (hx) 05/15/2018 AD MONTERO DIRECTIVE Health Care Decision (hx) 05/15/2018 AD MONTERO DIRECTIVE Health Care Decision (hx) 05/15/2018 AD MONTERO DIRECTIVE Health Care Decision (hx) 05/15/2018 AD MONTERO DIRECTIVE Health Care Decision (hx) 05/15/2018 AD MONTERO DIRECTIVE Health Care Decision (hx) 05/15/2018 AD MONTERO DIRECTIVE Health Care Decision (hx) 05/15/2018 AD MONTERO DIRECTIVE Health Care Decision (hx) 05/15/2018 AD MONTERO DIRECTIVE Health Care Decision (hx) 05/15/2018 AD MONTERO DIRECTIVE Health Care Decision (hx) 05/15/2018 AD MONTERO DIRECTIVE Health Care Decision (hx) 05/15/2018 AD MONTERO DIRECTIVE Health Care Decision (hx) 05/15/2018 AD MONTERO DIRECTIVE Health Care Decision (hx) 05/15/2018 AD MONTERO DIRECTIVE Health Care Decision (hx) 05/15/2018 AD MONTERO DIRECTIVE Health Care Decision (hx) 05/15/2018 AD MONTERO DIRECTIVE Health Care Decision (hx) 05/15/2018 AD MONTERO DIRECTIVE Health Care Decision (hx) 05/15/2018 AD MONTERO DIRECTIVE Health Care Decision (hx) 05/15/2018 AD MONTERO DIRECTIVE Health Care Decision (hx) 05/15/2018 AD MONTERO DIRECTIVE Health Care Decision (hx) 05/15/2018 AD MONTERO DIRECTIVE Health Care Decision (hx) 05/15/2018 AD MONTERO DIRECTIVE Health Care Decision (hx) 05/15/2018 AD MONTERO DIRECTIVE Health Care Decision (hx) 05/15/2018 AD MONTERO DIRECTIVE Health Care Decision (hx) 05/15/2018 AD MONTERO DIRECTIVE Health Care Decision (hx) 05/15/2018 AD MONTERO DIRECTIVE Health Care Decision (hx) 05/15/2018 AD MONTERO DIRECTIVE Health Care Decision (hx) 05/15/2018 AD MONTERO DIRECTIVE Health Care Decision (hx) 05/15/2018 AD MONTERO DIRECTIVE Health Care Decision (hx) 05/15/2018 AD MONTERO DIRECTIVE Health Care Decision (hx) 05/15/2018 AD MONTERO DIRECTIVE Health Care Decision (hx) 05/15/2018 AD MONTERO DIRECTIVE Health Care Decision (hx) 05/15/2018 AD MONTERO DIRECTIVE Health Care Decision (hx) 05/15/2018 AD MONTERO DIRECTIVE Health Care Decision (hx) 05/15/2018 AD MONTERO DIRECTIVE Health Care Decision (hx) 05/15/2018 AD MONTERO DIRECTIVE Health Care Decision (hx) 05/15/2018 AD MONTERO DIRECTIVE Health Care Decision (hx) 05/15/2018 AD MONTERO DIRECTIVE Health Care Decision (hx) 05/15/2018 AD MONTERO DIRECTIVE Health Care Decision (hx) 05/15/2018 AD MONTERO DIRECTIVE Health Care Decision (hx) 05/15/2018 AD MONTERO DIRECTIVE Health Care Decision (hx) 05/15/2018 AD MONTERO DIRECTIVE Health Care Decision (hx) 05/15/2018 AD MONTERO DIRECTIVE Health Care Decision (hx) 05/15/2018 AD MONTERO DIRECTIVE Health Care Decision (hx) 05/15/2018 AD MONTERO DIRECTIVE Health Care Decision (hx) 05/15/2018 AD MONTERO DIRECTIVE Health Care Decision (hx) 05/15/2018 AD MONTERO DIRECTIVE Health Care Decision (hx) 05/15/2018 AD MONTERO DIRECTIVE Health Care Decision (hx) 05/15/2018 AD MONTERO DIRECTIVE Health Care Decision (hx) 05/15/2018 AD MONTERO DIRECTIVE Health Care Decision (hx) 05/15/2018 AD MONTERO DIRECTIVE Health Care Decision (hx) 05/15/2018 AD MONTERO DIRECTIVE Health Care Decision (hx) 05/15/2018 AD MONTERO DIRECTIVE Health Care Decision (hx) 05/15/2018 AD MONTERO DIRECTIVE Health Care Decision (hx) 05/15/2018 AD MONTERO DIRECTIVE Health Care Decision (hx) 05/15/2018 AD MONTERO DIRECTIVE Health Care Decision (hx) 05/15/2018 AD MONTERO DIRECTIVE Health Care Decision (hx) 05/15/2018 AD MONTERO DIRECTIVE Health Care Decision (hx) 05/15/2018 AD MONTERO DIRECTIVE Health Care Decision (hx) 05/15/2018 AD MONTERO DIRECTIVE Health Care Decision (hx) 05/15/2018 AD MONTERO DIRECTIVE Health Care Decision (hx) 05/15/2018 AD MONTERO DIRECTIVE Health Care Decision (hx) 05/15/2018 AD MONTERO DIRECTIVE Health Care Decision (hx) 05/15/2018 AD MONTERO DIRECTIVE Health Care Decision (hx) 05/15/2018 AD MONTERO DIRECTIVE Health Care Decision (hx) 05/15/2018 AD MONTERO DIRECTIVE Health Care Decision (hx) 05/15/2018 AD MONTERO DIRECTIVE Health Care Decision (hx) 05/15/2018 AD MONTERO DIRECTIVE Health Care Decision (hx) 05/15/2018 AD MONTERO DIRECTIVE Health Care Decision (hx) 05/15/2018 AD MONTERO DIRECTIVE Health Care Decision (hx) 05/15/2018 AD MONTERO DIRECTIVE Health Care Decision (hx) 05/15/2018 AD MONTERO DIRECTIVE Health Care Decision (hx) 05/15/2018 AD MONTERO DIRECTIVE Health Care Decision (hx) 05/15/2018 AD MONTERO DIRECTIVE Health Care Decision (hx) 05/15/2018 AD MONTERO DIRECTIVE Health Care Decision (hx) 05/15/2018 AD MONTERO DIRECTIVE Health Care Decision (hx) 05/15/2018 AD MONTERO DIRECTIVE Health Care Decision (hx) 05/15/2018 AD MONTERO DIRECTIVE Health Care Decision (hx) 05/15/2018 AD MONTERO DIRECTIVE Health Care Decision (hx) 05/15/2018 AD MONTERO DIRECTIVE Health Care Decision (hx) 05/15/2018 AD MONTERO DIRECTIVE Health Care Decision (hx) 05/15/2018 AD MONTERO DIRECTIVE Health Care Decision (hx) 05/15/2018 AD MONTERO DIRECTIVE Health Care Decision (hx) 05/15/2018 AD MONTERO DIRECTIVE Health Care Decision (hx) 05/15/2018 AD MONTERO DIRECTIVE Health Care Decision (hx) 05/15/2018 AD MONTERO DIRECTIVE Health Care Decision (hx) 05/15/2018 AD MONTERO DIRECTIVE Health Care Decision (hx) 05/15/2018 AD MONTERO DIRECTIVE Health Care Decision (hx) 05/15/2018 AD MONTERO DIRECTIVE Health Care Decision (hx) 05/15/2018 AD MONTERO DIRECTIVE Health Care Decision (hx) 05/15/2018 AD MONTERO DIRECTIVE Health Care Decision (hx) 05/15/2018 AD MONTERO DIRECTIVE Health Care Decision (hx) 05/15/2018 AD MONTERO DIRECTIVE Health Care Decision (hx) 05/15/2018 AD MONTERO DIRECTIVE Health Care Decision (hx) 05/15/2018 AD MONTERO DIRECTIVE Health Care Decision (hx) 05/15/2018 AD MONTERO DIRECTIVE Health Care Decision (hx) 05/15/2018 AD MONTERO DIRECTIVE Health Care Decision (hx) 05/15/2018 AD MONTERO DIRECTIVE Health Care Decision (hx) 05/15/2018 AD MONTERO DIRECTIVE Health Care Decision (hx) 05/15/2018 AD MONTERO DIRECTIVE Health Care Decision (hx) 05/15/2018 AD MONTERO DIRECTIVE Health Care Decision (hx) 05/15/2018 AD MONTERO DIRECTIVE Health Care Decision (hx) 05/15/2018 AD MONTERO DIRECTIVE Health Care Decision (hx) 05/09/2018 AD MONTERO DIRECTIVE Health Care Decision (hx) 05/09/2018 AD MONTERO DIRECTIVE Health Care Decision (hx) 05/09/2018 AD MONTERO DIRECTIVE Health Care Decision (hx) 05/09/2018 AD MONTERO DIRECTIVE Health Care Decision (hx) 05/09/2018 AD MONTERO DIRECTIVE Health Care Decision (hx) 05/09/2018 AD MONTERO DIRECTIVE Health Care Decision (hx) 05/09/2018 AD MONTERO DIRECTIVE Health Care Decision (hx) 05/09/2018 AD MONTERO DIRECTIVE Health Care Decision (hx) 05/09/2018 AD MONTERO DIRECTIVE Health Care Decision (hx) 05/09/2018 AD MONTERO DIRECTIVE Health Care Decision (hx) 05/09/2018 AD MONTERO DIRECTIVE Health Care Decision (hx) 05/09/2018 AD MONETRO DIRECTIVE Health Care Decision (hx) 05/09/2018 AD MONTERO DIRECTIVE Health Care Decision (hx) 05/09/2018 AD MONTERO DIRECTIVE Health Care Decision (hx) 05/09/2018 AD MONTERO DIRECTIVE Health Care Decision (hx) 05/09/2018 AD MONTERO DIRECTIVE Health Care Decision (hx) 05/09/2018 AD MONTERO DIRECTIVE Health Care Decision (hx) 05/09/2018 AD MONTERO DIRECTIVE Health Care Decision (hx) 05/09/2018 AD MONTERO DIRECTIVE Health Care Decision (hx) 05/09/2018 AD MONTERO DIRECTIVE Health Care Decision (hx) 05/09/2018 AD MONTERO DIRECTIVE Health Care Decision (hx) 05/09/2018 AD MONTERO DIRECTIVE Health Care Decision (hx) 05/09/2018 AD MONTERO DIRECTIVE Health Care Decision (hx) 05/09/2018 AD MONTERO DIRECTIVE Health Care Decision (hx) 05/09/2018 AD MONTERO DIRECTIVE Health Care Decision (hx) 05/09/2018 AD MONTERO DIRECTIVE Health Care Decision (hx) 05/09/2018 AD MONTERO DIRECTIVE Health Care Decision (hx) 05/09/2018 AD MONTERO DIRECTIVE Health Care Decision (hx) 05/09/2018 AD MONTERO DIRECTIVE Health Care Decision (hx) 05/09/2018 AD MONTERO DIRECTIVE Health Care Decision (hx) 05/09/2018 AD MONTERO DIRECTIVE Health Care Decision (hx) 05/09/2018 AD MONTERO DIRECTIVE Health Care Decision (hx) 05/09/2018 AD MONTERO DIRECTIVE Health Care Decision (hx) 05/09/2018 AD MONTERO DIRECTIVE Health Care Decision (hx) 05/09/2018 AD MONTERO DIRECTIVE Health Care Decision (hx) 05/09/2018 AD MONTERO DIRECTIVE Health Care Decision (hx) 05/09/2018 AD MONTERO DIRECTIVE Health Care Decision (hx) 05/09/2018 AD MONTERO DIRECTIVE Health Care Decision (hx) 05/09/2018 AD MONTERO DIRECTIVE Health Care Decision (hx) 05/09/2018 AD MONTERO DIRECTIVE Health Care Decision (hx) 05/09/2018 AD MONTERO DIRECTIVE Health Care Decision (hx) 05/09/2018 AD MONTERO DIRECTIVE Health Care Decision (hx) 05/09/2018 AD MONTERO DIRECTIVE Health Care Decision (hx) 05/09/2018 AD MONTERO DIRECTIVE Health Care Decision (hx) 05/09/2018 AD MONTERO DIRECTIVE Health Care Decision (hx) 05/09/2018 AD MONTERO DIRECTIVE Health Care Decision (hx) 05/09/2018 AD MONTERO DIRECTIVE Health Care Decision (hx) 05/09/2018 AD MONTERO DIRECTIVE Health Care Decision (hx) 05/09/2018 AD MONTERO DIRECTIVE Health Care Decision (hx) 05/09/2018 AD MONTERO DIRECTIVE Health Care Decision (hx) 05/09/2018 AD MONTERO DIRECTIVE Health Care Decision (hx) 05/09/2018 AD MONTERO DIRECTIVE Health Care Decision (hx) 05/09/2018 AD MONTERO DIRECTIVE Health Care Decision (hx) 05/09/2018 AD MONTERO DIRECTIVE Health Care Decision (hx) 05/09/2018 AD MONTERO DIRECTIVE Health Care Decision (hx) 05/09/2018 AD MONTERO DIRECTIVE Health Care Decision (hx) 05/09/2018 AD MONTERO DIRECTIVE Health Care Decision (hx) 05/09/2018 AD MONTERO DIRECTIVE Health Care Decision (hx) 05/09/2018 AD MONTERO DIRECTIVE Health Care Decision (hx) 05/09/2018 AD MONTERO DIRECTIVE Health Care Decision (hx) 05/09/2018 AD MONTERO DIRECTIVE Health Care Decision (hx) 05/09/2018 AD MONTERO DIRECTIVE Health Care Decision (hx) 05/09/2018 AD MONTERO DIRECTIVE Health Care Decision (hx) 05/09/2018 AD MONTERO DIRECTIVE Health Care Decision (hx) 05/09/2018 AD MONTERO DIRECTIVE Health Care Decision (hx) 05/09/2018 AD MONTERO DIRECTIVE Health Care Decision (hx) 05/09/2018 AD MONTERO DIRECTIVE Health Care Decision (hx) 05/09/2018 AD MONTERO DIRECTIVE Health Care Decision (hx) 05/09/2018 AD MONTERO DIRECTIVE Health Care Decision (hx) 05/09/2018 AD MONTERO DIRECTIVE Health Care Decision (hx) 05/09/2018 AD MONTERO DIRECTIVE Health Care Decision (hx) 05/09/2018 AD MONTERO DIRECTIVE Health Care Decision (hx) 05/09/2018 AD MONTERO DIRECTIVE Health Care Decision (hx) 05/09/2018 AD MONTERO DIRECTIVE Health Care Decision (hx) 05/09/2018 AD MONTERO DIRECTIVE Health Care Decision (hx) 05/09/2018 AD MONTERO DIRECTIVE Health Care Decision (hx) 05/09/2018 AD MONTERO DIRECTIVE Health Care Decision (hx) 05/09/2018 AD MONTERO DIRECTIVE Health Care Decision (hx) 05/09/2018 AD MONTERO DIRECTIVE Health Care Decision (hx) 05/09/2018 AD MONTERO DIRECTIVE Health Care Decision (hx) 05/09/2018 AD MONTERO DIRECTIVE Health Care Decision (hx) 05/09/2018 AD MONTERO DIRECTIVE Health Care Decision (hx) 05/09/2018 AD MONTERO DIRECTIVE Health Care Decision (hx) 05/09/2018 AD MONTERO DIRECTIVE Health Care Decision (hx) 05/09/2018 AD MONTERO DIRECTIVE Health Care Decision (hx) 05/09/2018 AD MONTERO DIRECTIVE Health Care Decision (hx) 05/09/2018 AD MONTERO DIRECTIVE Health Care Decision (hx) 05/09/2018 AD MONTERO DIRECTIVE Health Care Decision (hx) 05/09/2018 AD MONTERO DIRECTIVE Health Care Decision (hx) 05/09/2018 AD MONTERO DIRECTIVE Health Care Decision (hx) 05/09/2018 AD MONTERO DIRECTIVE Health Care Decision (hx) 05/09/2018 AD MONTERO DIRECTIVE Health Care Decision (hx) 05/09/2018 AD MONTERO DIRECTIVE Health Care Decision (hx) 05/09/2018 AD MONTERO DIRECTIVE Health Care Decision (hx) 05/09/2018 AD MONTERO DIRECTIVE Health Care Decision (hx) 05/09/2018 AD MONTERO DIRECTIVE Health Care Decision (hx) 05/09/2018 AD MONTERO DIRECTIVE Health Care Decision (hx) 05/09/2018 AD MONTERO DIRECTIVE Health Care Decision (hx) 05/09/2018 AD MONTERO DIRECTIVE Health Care Decision (hx) 05/09/2018 AD MONTERO DIRECTIVE Health Care Decision (hx) 05/09/2018 AD MONTERO DIRECTIVE Health Care Decision (hx) 05/09/2018 AD MONTERO DIRECTIVE Health Care Decision (hx) 05/09/2018 AD MONTERO DIRECTIVE Health Care Decision (hx) 05/09/2018 AD MONTERO DIRECTIVE Health Care Decision (hx) 05/09/2018 AD MONTERO DIRECTIVE Health Care Decision (hx) 05/09/2018 AD MONTERO DIRECTIVE Health Care Decision (hx) 05/09/2018 AD MONTERO DIRECTIVE Health Care Decision (hx) 05/09/2018 AD MONTERO DIRECTIVE Health Care Decision (hx) 05/09/2018 AD MONTERO DIRECTIVE Health Care Decision (hx) 05/09/2018 AD MONTERO DIRECTIVE Health Care Decision (hx) 05/09/2018 AD MONTERO DIRECTIVE Health Care Decision (hx) 05/09/2018 AD MONTERO DIRECTIVE Health Care Decision (hx) 05/09/2018 AD MONTERO DIRECTIVE Health Care Decision (hx) 05/09/2018 AD MONTERO DIRECTIVE Health Care Decision (hx) 05/09/2018 AD MONTERO DIRECTIVE Health Care Decision (hx) 05/09/2018 AD MONTERO DIRECTIVE Health Care Decision (hx) 05/09/2018 AD MONTERO DIRECTIVE Health Care Decision (hx) 05/09/2018 AD MONTERO DIRECTIVE Health Care Decision (hx) 05/09/2018 AD MONTERO DIRECTIVE Health Care Decision (hx) 05/09/2018 AD MONTERO DIRECTIVE Health Care Decision (hx) 05/09/2018 AD MONTERO DIRECTIVE Health Care Decision (hx) 05/09/2018 AD MONTERO DIRECTIVE Health Care Decision (hx) 05/09/2018 AD MONTERO DIRECTIVE Health Care Decision (hx) 05/09/2018 AD MONTERO DIRECTIVE Health Care Decision (hx) 05/09/2018 AD MONTERO DIRECTIVE Health Care Decision (hx) 05/09/2018 AD MONTERO DIRECTIVE Health Care Decision (hx) 05/09/2018 AD MONTERO DIRECTIVE Health Care Decision (hx) 05/09/2018 AD MONTERO DIRECTIVE Health Care Decision (hx) 05/09/2018 AD MONTERO DIRECTIVE Health Care Decision (hx) 05/09/2018 AD MONTERO DIRECTIVE Health Care Decision (hx) 05/09/2018 AD MONTERO DIRECTIVE Health Care Decision (hx) 05/09/2018 AD MONTERO DIRECTIVE Health Care Decision (hx) 05/09/2018 AD MONTERO DIRECTIVE Health Care Decision (hx) 05/09/2018 AD MONTERO DIRECTIVE Health Care Decision (hx) 05/09/2018 AD MONTERO DIRECTIVE Care Teams Systems Security Consultant Relationship Specialty Start Date End Date Rolanda Avila MD [address] [place] [phone] PCP - General Internal Medicine 10/23/21
--- OUTSIDE RECORDS SUMMARY | 2024-06-09 09:08 | XMS_ITS | Encounter Summary ---
Author Organization [facility] Address [address] [place] [address] Care Team Providers Care Fee Clerk Name Role Phone Rolanda Alcala MD Primary Care Prov ider Encounter Details Date Type Department Care Team Description 01/18/2023 Social Work [facility] Oncology Services [address] [place] [address] [facility] Social History Tobacco Use Types Packs/Day Years [...] on filedocumented in this encounter Care Teams Fee Clerk Relationship Specialty Start Date End Date Rolanda Alcala MD [address] [place] [address] PCP - General Internal Medicine 10/25/22 documented as of this encounter
--- OUTSIDE RECORDS SUMMARY | 2024-06-09 09:08 | XMS_ITS ---
Author Organization [facility] Address [address] [place] [address] Phone Care Team Providers Care Configuration Management Administrator Name Role Phone Rolanda Avila MD Primary Care Prov ider Active Problems Problem Noted Date Diagnosed Date [...] line agents - methotrexate, etc.05/2011, 11/2012, 12/07 Current Oncology Plans No current plan information found. Past Plans Oncology Treatment Plan Name Start Date Discontinue Date Treatment Medications Discontinue Reason Plan Provider Cycles Atezolizumab ( Every 28 days / 1,680 mg ) 02/05/20 24 05/28/2024 atezolizumab (TECENTRIQ)atez olizumab (TECENTRIQ) chemo IVPB in 250 mL NS - Therapy Complete Subramony Subramonia- MD María 5 of 12 cycles started Radiation Treatments * No radiation treatments are documented for this patient in [facility]. Treatments may have been administered in another system. Lifetime Dose Tracking * Chemical Lifetime Dose Automatic Entry Manual Entr y Fluoro Time 1 minutes 1 minutes 0 minutes Air Kerma 225 mGy 225 mGy 0 mGy
--- OUTSIDE RECORDS SUMMARY | 2024-06-09 09:09 | XMS_ITS | Patient Health Record ---
[facility] Organization [facility] Address [address] [place] [address] Care Team Providers Care Gearman Name Role Phone Rolanda King Primary Care Provider Toby gardiner BlackLolita Unavailable [phone] Allergies Allergen (clinical drug ingredient) Drug/Non Drug Allergy documented on EMR Reaction Allergy Type Onset Date Status amoxicillin Amoxicillin Unknown Drug Allergy Act ady doxycycline Doxycycline Hyclate diarrhea Drug Allergy Active Penicillin Unknown Drug Allergy Active Results Component Value Reference Range Notes X ray : Foot, left 3V Reviewed date:12/12/2023 12:43:44 PM Interpretation:See Examination above Performing Lab: Notes/Report: See Examination above Reason For Referral No Information Medications Medication SIG (Take, Route, Frequency, Duration) Notes Start Date End Date Status oxyBUTYnin Not-Takin g Doxycycline Hyclate 100 MG 1 capsule Ora lly Once a day for 10 day(s) 07/17/2021 Not-Taking Neuriva Not-Taking Acetaminophen Extra Strength 500 MG 2 tablet as needed Orally every 6 hrs for 14 days 10/11/2022 Active Doxycycline Hyclate 100 MG 1 capsule Ora lly Once a day for 10 day(s) Not-Taking levoFLOXacin 500 MG 1 tablet Orally Once a day for 10 day(s) 12/03/2022 Not-Taking Clindamycin HCl 300 MG 1 capsule Orally every 6 hrs for 10 day(s) 11/05/2022 Not-Taking Furosemide 20 MG 1 tablet Orally Once a day for 30 day(s) Active Eliquis 5 MG as directed Orally Active Metoprolol Succinate ER 25 MG 1 tablet Orally Once a day for 30 day(s) Active oxyCODONE HCl 5 MG 1 tablet as needed Orally every 6 hrs Active Immunizations Vaccine Route Administration Date Status Comme [...] Status Risk Notes Problem Acquired hallux valgus (70414019) Hallux valgus (acquired), left foot (M20.12) Active confirmed Problem Ulcer of foot (19401867) Non-pressure chronic ulcer of other part of left foot limited to breakdown of skin (L97.521) Active confirmed Resistant to previous conservative treatment Problem [id number] Rheumatoid arthritis with rheumatoid factor of right ankle and foot without organ or systems involvement (M05.771) Active confirmed Problem Acquired hallux valgus (74358698) Hallux valgus (acquired), right foot (M20.11) Active confirmed Problem Ulcer of foot (33789307) Non-pressure chronic ulcer of other part of right foot limited to breakdown of skin (L97.511) Active confirmed Problem Acquired hammer toe of right foot (1284525688229746) Other hammer toe(s) (acquired), right foot (M20.41) Active confirmed Problem Acquired hammer toe of left foot (4723700654315612) Other hammer toe(s) (acquired), left foot (M20.42) Active confirmed Problem Acquired deformity of right foot (75926932910294571) PlantarFlexion of metatarsal of right foot (M21.6X1) Active confirmed Problem Acquired deformity of left foot (78779116742040411) PlantarFlexion of metatarsal of left foot (M21.6X2) Active confirmed Problem 829230346 Ulcer of left foot with fat layer exposed (L97.522) Active confirmed Problem Localized, primary osteoarthritis of the ankle and/or foot (213033356) Arthritis of joint of lesser toe, left (M19.072) Active confirmed Problem Localized, primary osteoarthritis of the ankle and/or foot (795433442) Arthritis of joint of lesser toe, right (M19.071) Active confirmed Vital Signs Blood pressure diastolic 80 mm Hg 04/02/2024 Height 5ft3in in 04/02/2024 Blood pressure systolic 128 mm Hg 04/02/2024 Weight 102 lbs 04/02/2024 BMI 18.07 kg/m2 04/02/2024 Procedures Procedure Date Ordered Date Performed Result Body Sit e 10068-URPICVS NAIL, 6 OR MORE 08/08/2023 N/A 22995- Debride <25 sq cm 08/08/2023 N/A 73653-VLZVMAH NAIL, 6 OR MORE 12/12/2023 N/A 10001-HSKJFMF SKIN/TISSUE 12/12/2023 N/A 52559-FIZIQFW SKIN/TISSUE 01/02/2024 N/A 16272-IINKWZJ NAIL, 6 OR MORE 04/02/2024 N/A 70350-TDAOSUQ SKIN/TISSUE 04/02/2024 N/A Encounters Encounter Location Date Provider Diagnosis [address] [address] 08/08/2023 Lolita Black Tinea unguium B35.1 ; Pain in left toe(s) M79.675 ; Pain in right toe(s) M79.674 and Ulcer of left foot, limited to breakdown of skin L97.[address] [address] 12/12/2023 Lolita Black Tinea unguium B35.1 ; [...] foot without organ or systems involvement M05.[address] [address] 01/02/2024 Lolita Black Cellulitis of foot, left L03.116 ; Cellulitis of right foot L03.115 ; Ulcer of left foot with fat layer exposed L97.522 and Cutaneous abscess of right foot L02.[address] [address] 01/20/2024 Lolita Black Cellulitis of right foot L03.115 ; Ulcer of left foot, limited to breakdown of skin L97.521 and Ulcer of right foot with fat layer exposed L97.[address] [address] 04/02/2024 Lolita Black Tinea unguium B35.1 ; Ulcer of left foot with fat layer exposed L97.522 ; Pain in left toe(s) M79.675 ; Pain in right toe(s) M79.674 and Pain in left foot M79.[address] [address] 01/02/2024 Lolita Black [address] [address] 01/02/2024 Lolita Black Assessments Encounter Date Diagnosis (ICD Code) Assessment Notes Treatment Notes Treatment Clinical Notes Section Notes 08/08/2023 Tinea unguium (ICD-10 - B35.1) 08/08/2023 Pain in left toe(s) (ICD-10 - M79.675) 12/12/2023 Tinea unguium (ICD-10 - B35.1) 12/12/2023 [...] CARE INSTRUCTIONS. pdf (WOUND CARE INSTRUCTIONS. pdf) 04/02/2024 Tinea unguium (ICD-10 - B35.1) 04/02/2024 Ulcer of left foot with fat layer exposed (ICD-10 - L97.522) Patient Educated with: WOUND CARE INSTRUCTIONS. pdf (WOUND CARE INSTRUCTIONS. pdf) 04/02/2024 Pain in left toe(s) (ICD-10 - M79.675) 01/02/2024 Ulcer of left foot with fat [...] Cellulitis of foot, left (ICD-10 - L03.116) 04/02/2024 Pain in right toe(s) (ICD-10 - M79.674) 01/02/2024 Cutaneous abscess of right foot (ICD-10 - L02.611) 12/12/2023 Ulcer of left foot with fat layer exposed (ICD-10 - L97.522) Patient Educated with: WOUND CARE INSTRUCTIONS. pdf (WOUND CARE INSTRUCTIONS. pdf) 04/02/2024 Pain in left foot (ICD-10 - M79.672) 12/12/2023 Pain in left foot (ICD-10 - M79.672) 12/12/2023 PlantarFlexion of metatarsal of left foot (ICD-10 - M21.6X2) 12/12/2023 Rheumatoid arthritis with rheumatoid factor of right ankle and foot without organ or systems involvement (ICD-10 - M05.771) 12/12/2023 Other 01/20/2024 Other Plan Of Treatment Pending Test Test Name Order Date *Wound Culture 11/19/2022 26751-LKPDUZQ NAIL, 6 OR MORE 09/10/2022 04916-MPGKLVJ NAIL, 6 OR MORE 06/21/2022 29754-XVWPUKO NAIL, 6 OR MORE 10/09/2021 59227-FYBZJNF NAIL, 6 OR MORE 12/11/2021 66685-OQWHIJX NAIL, 6 OR MORE 02/12/2022 04027-LVIZVMG NAIL, 6 OR MORE 10/12/2019 56354-MCIUORZ NAIL, 6 OR MORE 12/21/2019 74434-CTRQXJB NAIL, 6 OR MORE 06/30/2020 23094-JMZBGUS NAIL, 6 OR MORE 10/03/2020 39357-DPVOMTW NAIL, 6 OR MORE 01/09/2021 76877-OTBKREL NAIL, 6 OR MORE 03/23/2021 04817-CFVRFZL NAIL, 6 OR MORE 06/29/2021 13536-XEWBPBC NAIL, 6 OR MORE 12/24/2022 60576-PZPKNUI NAIL, 6 OR MORE 05/06/2023 14064-NAZMIZF NAIL, 6 OR MORE 08/08/2023 59712-UKPNVQO NAIL, 6 OR MORE 12/12/2023 62917-BWXYFQY NAIL, 6 OR MORE 04/02/2024 13481-Cuyawrzb Plate 10/03/2020 25620- Debride <25 sq cm 10/03/2020 82991- Debride <25 sq cm 06/30/2020 63230- Debride <25 sq cm 11/09/2019 61509- Debride <25 sq cm 03/23/2021 27102- Debride <25 sq cm 01/09/2021 11072- Debride <25 sq cm 02/12/2022 30541- Debride <25 sq cm 12/11/2021 69463- Debride <25 sq cm 08/07/2021 86951- Debride <25 sq cm 10/09/2021 85577- Debride <25 sq cm 09/10/2022 89780- Debride <25 sq cm 10/12/2019 23353- Debride <25 sq cm 06/21/2022 82091- Debride <25 sq cm 10/11/2022 08379- Debride <25 sq cm 12/24/2022 44933- Debride <25 sq cm 08/08/2023 94930- Debride <25 sq cm 05/06/2023 40320-CTXUQHZ SKIN/TISSUE 01/02/2024 71735-ZFZZXZT SKIN/TISSUE 04/02/2024 91493-VCKTCMJ SKIN/TISSUE 12/12/2023 50608 I&D ABSCESS- SIMPLE,SINGLE 022 02462 I&D ABSCESS- SIMPLE,SINGLE 022 92772 I&D ABSCESS- SIMPLE,SINGLE 022 16025 I&D ABSCESS- SIMPLE,SINGLE 021 90149, C4274-IWMLJ/INJECT, JOINT/BURSA 1 04/14/2021 Next Appt Details Provider Name:Lolita Altman , 07/30/2024 08:30:00 AM, [address] [place], [address], Insurance Providers Payer Name Payer Address Payer Phone Subscriber Number Group Number Insured Name Patient Relationship to Insured Coverage Start Date Coverage End Date Medicare National [employer]t [employer] [address] [place] [address] [id number] Nelly Benavides Self - patient is the insured [facility] [address] [place] [phone] [id number] Nelly Benavides Self - patient is the insured Medical (General) History Medical History History ICD Code Arthritis Back,Hip,and Knee pain Cancer High blood pressure Kidney disease Measles Mumps Chicken pox Transfusions Surgical History Surgery Date(Month/Year) knee replacement 08/19/2019 left knee replacement 01/11 Excision 4th Met Head Left Foot 10/31/22
--- OUTSIDE RECORDS SUMMARY | 2024-06-09 09:09 | XMS_ITS | Clinical Summary ---
Author Organization [facility] Address [address] [place] [address] Care Team Providers Care Manufacturing Tech Name Role Phone Rolanda Alcala MD Primary Care Prov ider Allergies Active Allergy Reactions Criticality Noted Date Comments Cefadroxil Other (See Comments) 11/28/2016 PATIENT UNSURE Penicillins Itching,Rash Low 12/04/2016 Medications Medication Sig Dispensed Refills Start Date End Date Status metoprolol succinate (TOPROL-XL) 24 hr tablet 25 mg Take 1 tablet (25 mg total) by mouth daily. 0 01/25/2019 Active Atezolizumab (TECENTRIQ IV) Inject into the vein. Every 3 weeks last dose before surgery 12/17/2019 0 Active apixaban (ELIQUIS) 5 MG TABS tablet Take 1 tablet (5 mg total) by mouth daily. START TAKING ON 12/31/2019 60 tablet 0 12/31/2019 Active celecoxib (CeleBREX) 100 MG capsule TK 1 C PO BID 0 02/25/2020 Active leflunomide (ARAVA) 20 MG tablet Take 1 tablet (20 mg total) by mouth daily. 0 12/10/2022 Active sulfaSALAzine (AZULFIDINE) 500 MG tablet Take 1 tablet (500 mg total) by mouth 2 (two) times a day. 0 02/07/2023 Active Stimulant Laxative 8.6-50 MG TAKE 2 TABLETS BY MOUTH DAILY 60 tablet 5 07/03/2023 Active oxyCODONE (ROXICODONE) 5 MG immediate release tablet Take 1 tablet (5 mg total) by mouth every 4 (four) hours as needed for pain. 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 08/30/2020 History of total bilateral knee replacement 07/2020 Lung nodules 02/22/2020 S/P total knee replacement, left 01/12/2020 Acquired genu valgum of left knee 12/28/2019 Synovitis of left knee 12/28/2019 Prediabetes 12/15/2019 Preop cardiovascular exam 12/10/2019 Primary osteoarthritis of left knee 12/03/2019 Primary osteoarthritis of both knees 02/17/2019 Chronic pain of both knees 02/17/2019 Synovitis of right knee 02/17/2019 Acquired genu valgum of right knee 02/17/2019 Abnormal CXR 09/05/2018 Nephrostomy status 07/08/2018 Protein-calorie malnutrition, moderate 9 Healthcare-associated pneumonia 06/06/2018 Pleural effusion, bilateral 06/06/2018 History of DVT (deep vein thrombosis) 05/05/2018 Acute deep vein thrombosis ( DVT) of femoral vein of both lower extremities 04/25/2018 Diastolic congestive heart failure 04/25/2018 Acute thromboembolism of agnieszka p veins of both lower extremities 04/22/2018 Primary insomnia 02/18/2018 Essential hypertension 06/05/2017 Rheumatoid arthritis involving multiple sites Primary osteoarthritis of right knee 04/10/2017 Thrombocytosis 02/06/2017 Malignant neoplasm of overlapping sites of bladd er 12/04/2016 Secondary malignant neoplasm of bone 12/04/2016 Overview: Overview: Metastatic bladder cancer Iron deficiency anemia due to chronic blood loss 12/04/2016 Osteoarthritis of hand 12/04/2010 Cancer of overlapping sites of bladder Hydronephrosis Retention, urine Resolved Problems Problem Noted Date Diagnosed Date Resolved Date Urinary retention 01/23/2017 01/07/2020 Gross hematuria 09/29/2020 Immunizations Name Administration Dates Next Due Influenza Quad (Fluarix/Fluz one/FluLaval) 0.5mL (SD-IIV4) 12/29/2019 Influenza Trivalent (Fluzone High Dose) 0.7 mL (65yrs &>) 11/26/2018 Pneumococcal Conjugate PCV13 12/31/2018 Family History Medical History Relation Name Comments Hypertension Father Stroke Father Arthritis Mother Heart disease Mother MURMUR Hypertension Mother Relation Name Status Comments Father (Age 82) STROKE Mother (Age 90) MVA Social History Tobacco Use Types Packs/Day Years Used Date Smoking Tobacco: Former Cigarettes 1.5 30 Q uit: 08/09/1989 Smokeless Tobacco: Never Tobacco Cessation:Counseling Given: No Alcohol Use Standard Drinks/Week Comments No 0 (1 standard drink = 0.6 oz pur e alcohol) Sex and Gender Information Value Date Recorded Sex Assigned at Female 06/15/2019 3:13 PM EDT Gender Identity Female 06/15/2019 3:13 PM EDT Sexual Orientation Straight 12/26/2021 12 :02 PM EDT Job Start Date Occupation Industry Not on file Not on file Not on file Last Filed Vital Signs Vital Sign Reading Time Taken Comments Blood Pressure 156/86 01/08/2024 11:00 AM EDT Pulse 85 01/08/2024 11:00 AM EDT Temperature 36.6 ??C (97.9 ??F) 01/08/2024 1 1:00 AM EDT Respiratory Rate 16 01/08/2024 11:0 0 AM EDT Oxygen Saturation 100% 01/08/2024 11: 00 AM EDT Inhaled Oxygen Concentration - - Weight 46.2 kg (101 lb 13.6 oz) 024 11:00 AM EDT Height 152.4 cm (5') 12/11/2023 11:31 AM EDT Body Mass Index 19.89 12/11/2023 11:31 AM EDT Plan of Treatment Health Maintenance Due Date Last Done Comments Hepatitis C Screening 1949 Depression Screening 1961 Preventative Health Evaluation 08/04/1967 DTap / Tdap / Td (1 - Tdap) 1968 Shingrix-Zoster Vaccine (1 of 2) 1968 Colon Cancer Screening (Colonoscopy) 1994 Breast Cancer Screening (Mammogram) 08/04/1999 Fall Risk Assessment 2014 Osteoporosis Screening (DEXA Scan) 2014 COVID-19 Vaccine (3 - Pfizer risk series) 02/06/2021 01/09/2021, 12/19/2020 Influenza Vaccine (#1) 2023 , 01/09/2021, 12/29/2019, Additional history exists RSV Adult > 60+ Yrs or (1 - 1-dose 75+ series) 2024 Pneumococcal Vaccine Completed 01/05/2020, 01/01/20 19 Hepatitis B Vaccines Aged Out No long er eligible based on patient's age to complete this topic RSV Ped < 20 months Aged Out No longe r eligible based on patient's age to complete this topic Medical Devices Implanted Type Area Warp Changer Device Identifier Shelf Expiration Date Model / Serial / Lot Cement Bone Simplex High Viscosity 20ml 40gm 10\Pack - [id number] - [id number] Implanted:Qty: 1 on 08/19/2019 by Frank Ramesh MD at [facility] Right: Knee [employer] 05/22/2020 6194-1-010 / / [id number] Cement Bone Simplex High Viscosity 20ml 40gm 10\Pack - 605649 - [id number] Implanted:Qty: 1 on 08/19/2019 by Frank Ramesh MD at [facility] and [facility] Right: Knee [employer] 05/22/2020 6194-1-010 / / [id number] Component Triathlon 3 Posterior Stabilized Cemented Femoral - 716675 - [id number] Implanted:Qty: 1 on 08/19/2019 by Frank Ramesh MD at [facility] and [facility] Right: Knee [employer] [id number] 09/01/2023 5515-F-302 / / [id number] Baseplate Triathlon 3 [place] Totl Stabilized Cocr Tibial - 591110 - [id number] Implanted:Qty: 1 on 08/19/2019 by Frank Ramesh MD at [facility] and [facility] Right: Knee [employer] [id number] 10/13/2023 5521-B-300 / / [id number] Stem Triathlon 50mm 12mm Cemented Totl Stabilized Cocr - 462723 - [id number] Implanted:Qty: 1 on 08/19/2019 by Frank Ramesh MD at [facility] and [facility] Right: Knee [employer] [id number] 01/28/2024 5560-S-112 / / [id number] Component Triathlon 9mm 33mm Symmetric X3 Ptlar Knee - 042064 - [id number] Implanted:Qty: 1 on 08/19/2019 by Frank Ramesh MD at [facility] and [facility] Right: Knee [employer] [id number] 12/16/2023 5550-G-339 / / [id number] Plug Artisan Medium 25mm Plug Bone Cement - 368609 - [id number] Implanted:Qty: 1 on 08/19/2019 by Frank Ramesh MD at [facility] and [facility] Right: Knee [employer] [id number] 02/16/2024 6215-5-011 / / [id number] Insert Triathlon 3 9mm Totl Stabilized Plus X3 Tibial Knee - 846193 - [id number] Implanted:Qty: 1 on 08/19/2019 by Frank Ramesh MD at [facility] and [facility] Right: Knee [employer] [id number] 01/15/2023 5537-G-309 / / [id number] Cement Bone Simplex High Viscosity 20ml 40gm 10\Pack - 471677 - [id number] Implanted:Qty: 1 on 12/28/2019 by Frank Ramesh MD at [facility] and [facility] Left: Knee [employer] [id number] 09/21/2020 6194-1-010 / / [id number] Plug Artisan Medium 25mm Plug Bone Cement - 791494 - [id number] Implanted:Qty: 1 on 12/28/2019 by Frank Ramesh MD at [facility] and [facility] Left: Knee [employer] [id number] 10/21/2024 6215-5-011 / / [id number] Peg Triathlon Modular Fix Distal Femur Knee - 815974 - [id number] Implanted:Qty: 1 on 12/28/2019 by Frank Ramesh MD at [facility] and Med Left: Knee [employer] [id number] 05/13/2024 5575-X-000 / / [id number] Component Triathlon 9mm 33mm Symmetric X3 Ptlar Knee - 402127 - [id number] Implanted:Qty: 1 on 12/28/2019 by Frank Ramesh MD at [facility] [place] and Med Left: Knee [employer] [id number] 11/03/2024 5550-G-339 / / [id number] Baseplate Triathlon 3 [place] Totl Stabilized Cocr Tibial - 495987 - [id number] Implanted:Qty: 1 on 12/28/2019 by Frank Ramesh MD at [facility] [place] and Med Left: Knee [employer] [id number] 02/13/2024 5521-B-300 / / [id number] Component Triathlon 3 Posterior Stabilized Cemented Femoral - 724736 - [id number] Implanted:Qty: 1 on 12/28/2019 by Frank Ramesh MD at [facility] [place] and Med Left: Knee [employer] [id number] 11/05/2022 5515-F-301 / / [id number] Stem Triathlon 50mm 12mm Cemented Totl Stabilized Cocr - 993123 - [id number] Implanted:Qty: 1 on 12/28/2019 by Frank Ramesh MD at [facility] [place] and Med Left: Knee [employer] [id number] 01/04/2024 5560-S-112 / / [id number] Insert Triathlon 3 9mm Totl Stabilized Plus X3 Tibial Knee - 885287 - [id number] Implanted:Qty: 1 on 12/28/2019 by Frank Ramesh MD at [facility] [place] and Med Left: Knee [employer] [id number] 05/07/2023 5537-G-309 / / [id number] Cement Bone Simplex High Viscosity 20ml 40gm 10\Pack - 008095 - [id number] Implanted:Qty: 1 on 12/28/2019 by Frank Ramesh MD at [facility] [place] and Med Left: Knee [employer] [id number] 10/22/2020 6194-1-010 / / [id number] Advance Directives For more information, please contact: [phone] Latest Code Status on File Code Status Date Activated Date Inactivated Comments Full Code 12/28/2019 8:51 AM 12/29/2019 9:16 PM This code status was ascertained in the following way: discussion with patient . Code Status History Code Status Date Activated Date Inactivated Comments Full Code 12/28/2019 6:31 AM 12/28/2019 8:51 AM This code status was ascertained in the following way: discussion with patient . Full Code 08/19/2019 9:42 AM 08/20/2019 10:31 PM This code status was ascertained in the following way: discussion with patient . Full Code 08/19/2019 5:36 AM 08/19/2019 9:42 AM This code status was ascertained in the following way: per living will or healthcare instructions . Care Teams Manufacturing Tech Relationship Specialty Start Date End Date Rolanda Alcala MD [address] [place] [id number] PCP - General Internal Medicine 01/16/22
--- OUTSIDE RECORDS SUMMARY | 2024-06-09 09:09 | XMS_ITS ---
Author Organization [facility] Address [address] [facility] [place] [address] Care Team Providers Care Restaurant Maintenance Technician Name Role Phone Rolanda King Primary Care Provider Toby gardiner Lolita Altman Unavailable [phone] Allergies Allergen (clinical drug ingredient) Drug/Non Drug Allergy documented on EMR Reaction Allergy Type Onset Date Status amoxicillin Amoxicillin Unknown Drug Allergy Act ady doxycycline Doxycycline Hyclate diarrhea Drug Allergy Active Penicillin Unknown Drug Allergy Active REASON FOR VISIT Painful Nail(s) aggrevated by shoes and causing difficulty standing/walking., chronic ulceration Medications Medication SIG (Take, Route, Frequency, Duration) Notes Start Date End Date Status oxyBUTYnin Not-Takin g Doxycycline Hyclate 100 MG 1 capsule Ora lly Once a day for 10 day(s) 07/17/2021 Not-Taking Neuriva Not-Taking levoFLOXacin 500 MG 1 tablet Orally Once a day for 10 day(s) 12/03/2022 Not-Taking Clindamycin HCl 300 MG 1 capsule Orally every 6 hrs for 10 day(s) 11/05/2022 Not-Taking Acetaminophen Extra Strength 500 MG 2 tablet as needed Orally every 6 hrs for 14 days 10/11/2022 Active Doxycycline Hyclate 100 MG 1 capsule Ora lly Once a day for 10 day(s) Not-Taking Eliquis 5 MG as directed Orally Active Metoprolol Succinate ER 25 MG 1 tablet Orally Once a day for 30 day(s) Active oxyCODONE HCl 5 MG 1 tablet as needed Orally every 6 hrs Active Furosemide 20 MG 1 tablet Orally Once a day for 30 day(s) Active Social History Tobacco Use: Social History Observation Description Date Details (start date - stop date) Former Smoker NA - NA Tobacco Use/Smoking Question Answer Notes Are you a: former smoker Additional Findings: Tobacco Non-User Current no n-smoker Tobacco use other than smoking: Question Answer Notes Are you an other tobacco user? No Vital Signs Height 5ft3in in 04/02/2024 Weight 102 lbs 04/02/2024 BMI 18.07 kg/m2 04/02/2024 Blood pressure systolic 128 mm Hg 04/02/19 25 Blood pressure diastolic 80 mm Hg 025 Procedures Procedure Date Ordered Date Performed Result Body Sit e 80248-PYYSJNM NAIL, 6 OR MORE 04/02/2024 N/A 40473-[id number] SKIN/TISSUE 04/02/2024 N/A Encounters Encounter Location Date Provider Diagnosis [facility] [place] [address] [place] [address] 04/02/2024 Lolita Altman Tinea unguium B35.1 ; Ulcer of left foot with fat layer exposed L97.522 ; Pain in left toe(s) M79.675 ; Pain in right toe(s) M79.674 and Pain in left foot M79.672 Assessments Encounter Date Diagnosis (ICD Code) Assessment Notes Treatment Notes Treatment Clinical Notes Section Notes 04/02/2024 Tinea unguium (ICD-10 - B35.1) 04/02/2024 Ulcer of left foot with fat layer exposed (ICD-10 - L97.522) Patient Educated with: WOUND CARE INSTRUCTIONS.p df (WOUND CARE INSTRUCTIONS.p df) 04/02/2024 Pain in left toe(s) (ICD-10 - M79.675) 04/02/2024 Pain in right toe(s) (ICD-10 - M79.674) 04/02/2024 Pain in left foot (ICD-10 - M79.672) Plan Of Treatment Treatment Notes Assessment Notes Ulcer of left foot with fat layer expose d Patient Educated with: WOUND CARE INSTRUCTIONS.pdf (WOUND CARE INSTRUCTIONS.pdf) Pending Test Test Name Order Date [id number] NAIL, 6 OR MORE 04/02/2024 [id number] SKIN/TISSUE 04/02/2024 Next Appt Details Follow Up: 2 Months, Reason: Provider Name:Lolita Altman , 07/30/2024 08:30:00 AM, [address] [place] [address], [phone], Procedure Notes * Category Sub-Category Detail Notes Debride Nail 6-10 Nail debridement Due to the cl inical pathology outlined in the exam findings, performance of this nail treatment is medically necessary as its management by an unskilled/untrained nonprofessional would put this patients foot and overall health at risk. Therefore, debridement to affected nail(s), as described in exam ( TA, T1, T2, T3, T4, T5, T6, T7, T8, T9_ ), was performed exclusively by the physician of record to reduce/remove overall nail length, girth, thickness, subungual debris, and necrotic tissue, by manual and/or electrical means through the use of a nail nipper and/or dremel-type watch crystal grinder, to a more viable healthy nail plate or bed tissue 6-10 nails in total. Silver nitrate was used for any petechial bleeding as necessary. Definitive antifungal treatment options, both pharmaceutical and surgical, have been reviewed and discussed with the patient. The patient solely prefers the use of intermittent/as needed professional debridement services for their nail condition and understands the need for additional periodic treatments to maintain effectiveness in symptomatic relief - 16955 Debride skin and subQ Open wound Physician [...] Sterile antibiotic dressing applied. Post debridement measurements: 8 mm x6mm x 3mm. Character of the wound post debridement is stable (68411) Progress Notes * Nelly BENAVIDESDOB: [birth year] (73 yo F)Acc No.[id number]:04/02/2024 Progress Note Patient:?Nelly BENAVIDES Provider:?Lolita Altman DPM :1950???Age:73 Y???Sex:Female D ate:04/02/2024 Address:[address] [place] [address] [phone] Pcp:Rolanda King Subjective: * Chief Complaints: * ???Painful Nail(s) aggrevate d by shoes and causing difficulty standing/walking.Chronic ulceration * HPI: ???Painful Nails:?Pt States Last PCP Visit:?Date:?12/04/2023 ???Skin problems:?Nature:?chronic ulceration left foot.? * ROS:?General/Constitutional:?Nausea?denies.?Vomiting?denies.?Hunger Thirst?denies.?Loss appetite?denies.?Chills?denies.?Fatigue?denies.?Fever?denies.?Night Sweats?denies.?Unexplained weight loss?denies.?Unexplained [...] * Family History:?Mother: dece ased, diagnosed with Unspecified essential hypertension, Family history of arthritis.?Father: , Stroke, diagnosed with Unspecified essential hypertension, Unspecified heart disease.? * Social History:?Tobacco Use:?Tobacco Use/Smoking?Are you a:?former smoker ?Additional Findings: Tobacco Non-User?Current non-smoker ?Tobacco use other than smoking?Are you an other tobacco user??No * Medications:?TakingFurosemid e 20 MG Tablet 1 tablet Orally Once a day Eliquis 5 MG Tablet as directed Orally Metoprolol Succinate ER 25 MG Tablet Extended Release 24 Hour 1 tablet Orally Once a day oxyCODONE HCl 5 MG Tablet 1 tablet as needed Orally every 6 hrs Acetaminophen Extra Strength 500 MG Tablet 2 tablet as needed Orally every 6 hrs Taking Furosemide 20 MG Tablet 1 tablet Orally Once a day Taking Eliquis 5 MG Tablet as directed Orally Taking Metoprolol Succinate ER 25 MG Tablet Extended Release 24 Hour 1 tablet Orally Once a day Taking oxyCODONE HCl 5 MG Tablet 1 tablet as needed Orally every 6 hrs Taking Acetaminophen Extra Strength 500 MG Tablet 2 tablet as needed Orally every 6 hrs Not-Taking/PRNDoxycycline Hyclate 100 MG Capsule 1 capsule Orally Once a day levoFLOXacin 500 MG Tablet 1 tablet Orally Once a day Clindamycin HCl 300 MG Capsule 1 capsule Orally every 6 hrs oxyBUTYnin Doxycycline Hyclate 100 MG Capsule 1 capsule Orally Once a day Neuriva Medication List reviewed and reconciled with the patientNot-Taking/PRN Doxycycline Hyclate 100 MG Capsule 1 capsule Orally Once a day Not-Taking/PRN levoFLOXacin 500 MG Tablet 1 tablet Orally Once a day Not-Taking/PRN Clindamycin HCl 300 MG Capsule 1 capsule Orally every 6 hrs Not-Taking/PRN oxyBUTYnin Not-Taking/PRN Doxycycline Hyclate 100 MG Capsule 1 capsule Orally Once a day Not-Taking/PRN Neuriva Medication List reviewed and reconciled with the patient * Allergies:?AmoxicillinPenici llin: AllergyDoxycycline Hyclate: diarrhea Objective: * Vitals:?Ht: 5ft3in, Wt:102, BMI:18.07, Shoe size: 8EEW, BP:128/80mm Hg, Ht-cm: 160.02 cm, Wt-k.27 kg. * Examination: ???General Examination: ?GENERAL APPEARANCE:?Reveals a pleasant, alert, well nourished, well- developed, well hydrated individual, who demonstrates proper attention to hygiene/body habitus, and is in no acute distress, Pt serves as own historian for office visit today.?ORIENTED:?person, place, and time.?Dermatologic: ?SKIN FINDINGS:?Skin exam reveals normal color, texture, elasticity, and turgor. There are no masses, nor excrescences. The interspaces are clear, B/L.?ULCER:?LOCATION, SIZE, 6mm X 4mm X 3mm, BASE, fibro-granular, RIM, hyperkeratotic, UNDERMINING, mild, TRACKING, Sub Q with Fat layer exposed, DRAINAGE, serosanguineous, moderate, NECROTIC TISSUE, loosely-adherent, yellow slough, MALODOR, absent, CALOR, absent, ERYTHEMA, absent.?Orthopedic: ?MUSCLE STRENGTH:?5/5 all groups in a symmetrical fashion, B/L.?GAIT ABNORMALITY:?Pronated , abducted angle and base of gate , B/L , antalgic , apropulsive , unstable/unsteady relating occasional difficulty with balance , B/L , walker-assisted.?BUNION:?Medially prominent 1st MPJ , B/L.?DIGITAL DEFORMITIES:?Digital contracture, PIPJ, 2-5 B/L, non-reducible with WB or to push-up test, multiple overlapping 1-5 b/l?.?MPJ PATHOLOGY:?Plantarflexed MT/MPJ , 1st , 2nd , 4th , 5th , LEFT , 1st , 2nd , 3rd , 4th , 5th , RIGHT.?FOOTWEAR:? shoe gear properties exacerbate patients foot/toe deformity.?Nails: ?NAILS are:?elongated,overgrown,dystrophic,greater than 3mm thick,discolored and friable with crumbly malodorous subungual debris, with pain on palpation, , TA, T1, T2, T3, T4, T5, T6, T7, T8, T9.?Neurological: ?SENSORY:?Neurological exam reveals intact sensorium, pain sensation normal, vibration sensation intact, pinprick sensation is normal in the lower extremities, Pt denies, anesthesia, burning, paresthesia, tingling, B/L.?Vascular: ?DP PULSES (B):?1/4, B/L.?PT PULSES (B):?1/4, B/L.?CAPILLARY FILL TIME:?delayed, all digits, B/L.?TROPHIC CONDITION-TEXTURE/ELASTICITY/TURGOR/HAIR GROWTH (B):?decreased, with sparse to absent hair growth, B/L.?TEMPERTURE GRADIENT (C):?normal, warm to cool, proximal to distal, B/L.? Assessment: * Assessment: 1.?Tinea unguium - B35.1???2 .?Ulcer of left foot with fat layer exposed - L97.522 (Primary)???3.?Pain in left toe(s) - M79.675???4.?Pain in right toe(s) - M79.674???5.?Pain in left foot - M79.672??? Plan: * Treatment: 2.?Tinea unguium?Procedure: 38054-[id number] NAIL, 6 OR MORE * Procedures:?Debride Nail 6-10:?Nail debridement?Due to the clinical pathology outlined in the exam findings, performance of this nail treatment is medically necessary as its management by an unskilled/untrained nonprofessional would put this patients foot and overall health at risk. Therefore, debridement to affected nail(s), as described in exam ( TA, T1, T2, T3, T4, T5, T6, T7, T8, T9_ ), was performed exclusively by the physician of record to reduce/remove overall nail length, girth, thickness, subungual debris, and necrotic tissue, by manual and/or electrical means through the use of a nail nipper and/or dremel-type watch crystal grinder, to a more viable healthy nail plate or bed tissue 6- 10 nails in total. Silver nitrate was used for any petechial bleeding as necessary. Definitive antifungal treatment options, both pharmaceutical and surgical, have been reviewed and discussed with the patient. The patient solely prefers the use of intermittent/as needed professional debridement services for their nail condition and understands the need for additional periodic treatments to maintain effectiveness in symptomatic relief - 06352.?Debride skin and subQ:?Open wound?Physician of record performed [...] Sterile antibiotic dressing applied. Post debridement measurements: 8 mm x6mm x 3mm. Character of the wound post debridement is stable (86951).? * Procedure Codes:?26394 DEBRI DE NAIL, 6 OR MORE, Modifiers: XS 80829 DEBRIDE SKIN/TISSUE, Modifiers: XS * Preventive Medicine:? ??Counseling:?Ulcer:?Given recent successful results to treatment, The patient is to cont the local wound care as directed. Pt relates she is scheduled to be evaluated for new shoes in a few weeks.? ??Screening/Special Tests:?Fall Risk?Screening:?No falls in the past year ?FALLS: Screening for Future Fall Risk?Have you had any falls with injury in the past year??No * Follow Up:?2 Months * Images: * Sign off status: Completed true * Provider:?Lolita Altman DPM Date:?2024 Generated for Gonzalo moore/Zain/Una on:?06/09/2024 09:08 AM EDT History and Physical Notes * HPI (History of Present Illness) Category Sub-Category Detail Notes Category Not es Painful Nails Pt States Last PCP Visit: Date:: 12/04/2023 Skin problems Nature: chronic ulceration left alec t Examination Category Sub-Category Detail Notes Category Not es Neurological SENSORY: Neurological exa m reveals intact sensorium, pain sensation normal, vibration sensation intact, pinprick sensation is normal in the lower extremities, Pt denies, anesthesia, burning, paresthesia, tingling, B/L TINEL'S COMPRESSION: Dermatologic SKIN FINDINGS: Skin exam reveal s normal color, texture, elasticity, and turgor. There are no masses, nor excrescences. The interspaces are clear, B/L ULCER: LOCATION, SIZE, 6mm X 4mm X 3mm, BASE, fibro-granular, RIM, hyperkeratotic, UNDERMINING, mild, TRACKING, Sub Q with Fat layer exposed, DRAINAGE, serosanguineous, moderate, NECROTIC TISSUE, loosely-adherent, yellow slough, MALODOR, absent, CALOR, absent, ERYTHEMA, absent Orthopedic GAIT ABNORMALITY: Pronated , abd ucted angle and base of gate , B/L , antalgic , apropulsive , unstable/unsteady relating occasional difficulty with balance , B/L , walker-assisted BUNION: Medially prominent 1 st MPJ , B/L FOOTWEAR: shoe gear properties exacerbate patients foot/toe deformity DIGITAL DEFORMITIES: Digital contracture , PIPJ, 2-5 B/L, non-reducible with WB or to push-up test, multiple overlapping 1-5 b/l MPJ PATHOLOGY: Plantarflexed MT/MPJ , 1st , 2nd , 4th , 5th , LEFT , 1st , 2nd , 3rd , 4th , 5th , RIGHT MUSCLE STRENGTH: 5/5 all groups in a symmetrical fashion, B/L General Examination GENERAL APPEARANCE: Reveals a pleasant, alert, well nourished, well-developed, well hydrated individual, who demonstrates proper attention to hygiene/body habitus, and is in no acute distress, Pt serves as own historian for office visit today ORIENTED: person, place, and t tyrell Vascular DP PULSES (B): 1/4, B/L PT PULSES (B): 1/4, B/L CAPILLARY FILL TIME: delayed, all digits , B/L TEMPERTURE GRADIENT (C): normal, warm to cool, proximal to distal, B/L TROPHIC CONDITION-TEXTURE/ELASTICITY/TURGOR/HAIR GROWTH (B): decreased, with sparse to absent hair gr owth, B/L Nails NAILS are: elongated,overgr own,dystrophic,greater than 3mm thick,discolored and friable with crumbly malodorous subungual debris, with pain on palpation, , TA, T1, T2, T3, T4, T5, T6, T7, T8, T9
--- OUTSIDE RECORDS SUMMARY | 2024-06-09 09:09 | XMS_ITS | Encounter Summary ---
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 Subramonia-Felicitas Daniel MD [address] [place] [phone] Phone: tel: fax: [facility] [address] [place] [phone] Phone: tel: fax: Referral ID Status Reason Start Date Expiration Date Visits Re quested Visits Authorized [id number] Closed 02/04/2024 02/03/2025 1 24 Encounter Details Date Type Department Care Team (Latest Contact Info) Description 05/27/2024 10:30 AM EST - 05/27/2024 11:59 PM EST Hospital Encounter [facility] [address] [facility] [address] [place] [address] Felicitas Macdonald MD [address] [place] [address] 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 For example, child day care provider or elderly care for an older adult? [...] AM EST documented as of this encounter Medications at Time of Discharge acetaminophen (TYLENOL) 500 mg tablet Take 1 tablet (500 mg total) by mouth. apixaban (ELIQUIS) 2.5 mg tablet Take 1 tablet (2.5 mg total) by mouth 2 (two) times a day. 04/03/2023 furosemide (LASIX) 20 mg tablet Take 1 tablet (20 mg total) by mouth 1 (one) time each day. 09/11/2022 lactose-reduced food (ENSURE COMPLETE ORAL) Take 237 mL by mouth. 03/13/2022 leflunomide (ARAVA) 20 mg tablet 09/10/2022 metoprolol succinate (TOPROL-XL) 25 mg 24 hr tablet Take 1 tablet (25 mg total) by mouth 1 (one) time each day. 04/11/2023 oxyCODONE (ROXICODONE) 5 mg immediate release tablet Take 1 tablet (5 mg total) by mouth every 4 (four) hours if needed for severe pain. Max Daily Amount: 30 mg 60 tablet 05/18/2024 senna-docusate (PERICOLACE) 8.6-50 mg per tablet Take 1 tablet by mouth. 12/29/2019 sulfaSALAzine (AZULFIDINE) 500 mg tablet Take 1 Tablet by mouth 2 times daily. 02/07/2023 documented as of this encounter Discharge Disposition Disposition Code Departure Means Destination Home or Self Care documented in this encounter Progress Notes * Edda He RN - 05/27/2024 10:30 AM EST Pt arrives to unit following office visit with Dr Daniel . Per Dr Daniel , this will be pts last scheduled appointment for atezolizumab. Pt is having an increase in arthritic pain in bilateral upper arms( most often at night ). Pt is very pleased with this news I have had a lot of infusions , I'm happy I can stop them . Hard to believe today will be my last infusion . Pt assessed and reports her appetite is stable . The only thing that bothers me is the pain in my upper arms , I take either tylenol or oxycodone for the pain . Labs reviewed. Okay to treat . IV inserted , pt tolerated well. Pttalking with friend at chair side - drinking water. Call lou in reach . Infusion complete, pt tolerated well. Pt ate small amount of lunch . Line flushed and angio removed. Pt discharged with her friend - gait steady with walker. Pt aware of next appointment with Dr Daniel. documented in this encounter Plan of Treatment Upcoming Encounters Date Type Department Care Team (Late st Contact Info) Description 07/13/2024 10:00 AM EDT Appointment [facility] [address] [place] [address] 07/22/2024 10:30 AM EDT Office Visit [facility] Hematology Oncology [address] [place] [address] Felicitas Macdonald MD [address] [place] [address] 11/11/2024 1:00 PM EDT Office Visit Nephrology [address] [phone] Efe Ramirez MD [address] [facility] [address] [place] [address] 04/20/2025 2:00 PM EST Office Visit Adult Medicine [address] [phone] Rolanda Avila MD [address] [place] [address] documented as of this encounter Visit Diagnoses Diagnosis Hypothyroidism due to medication- Primary Malignant neoplasm of overlapping sites of bladder (CMS/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) documented in this encounter Administered Medications Inactive Administered Medications - up to 3 most recent administrations Medication Order MAR Action Action Date Dose Rate Site atezolizumab (TECENTRIQ) 1,680 mg in sodium chloride 278 mL chemo IVPB 1,680 mg, intravenous, at 556 mL/hr, Administer over 30 Minutes, Once, On Sat05/27/24 at 1130, For 1 dose, This agent can be administered with or without a low protein binding 0.2 or 0.2 micron in-line filter.Indications:Malignant neoplasm of overlapping sites of bladder (CMS/HCC),Secondary malignant neoplasm of bone (CMS/HCC),Hypothyroidism due to medication New Bag 05/27/2024 11:57 AM EST 1,680 mg 556 mL/hr documented in this encounter Orders Medications Ordered That Celestino ht Not Have Been Administered Count Last Ordered Date First Ordered Date atezolizumab (TECENTRIQ) 1,6 80 mg in sodium chloride 278 mL chemo IVPB 1 05/27/2024 Nursing Count Last Ordered Date First Orde red Date NCCN PARAMETERS 1 05/27/2024 ONC NURSING COMMUNICATION 2 05/27/2024 ONC NURSING COMMUNICATION 10 1 05/27/2024 ONC NURSING COMMUNICATION 12 1 05/27/2024 ONC NURSING COMMUNICATION 2 1 05/27/2024 ONC NURSING COMMUNICATION 3 1 05/27/2024 ONC NURSING COMMUNICATION 5 1 05/27/2024 TREATMENT CONDITIONS 1 05/27/2024 TREATMENT CONDITIONS 43 1 05/27/2024 Appointment Requests Count Last Ordered Date Fi rst Ordered Date ONCBCN CALCULATED LENGTH INF USION APPOINTMENT REQUEST 1 05/27/2024 documented in this encounter Additional Health Concerns Assessment Noted Time PHQ-9 Depression Total Score: 0 04/16/19 25 10:58 AM EST documented as of this encounter Care Teams Bag Checker Relationship Specialty Start Date End Date Rolanda Avila MD [address] [place] [address] PCP - General Internal Medicine 10/23/21 documented as of this encounter
--- OUTSIDE RECORDS SUMMARY | 2024-06-09 09:09 | XMS_ITS ---
Author Organization [facility] Address [address] [place] [address] Care Team Providers Care Surgery Consultant Name Role Phone Rolanda Alcala MD Primary Care Prov ider Active Problems [...] overlapping sites of bladder Hydronephrosis Retention, urine Current Oncology Plans [facility] BCN OP ATEZOLIZUMAB* Plan Start Date:08/02/2021 Linked Problems Cancer of overlapping sites of bladder (HCC) Treatment Medications Current Day (Day 1 , Cycle 42 - Planned for 02/05/2024) Next Day (Day 1, Cycle 43 - Planned for 03/04/2024) albuterol (PROVENTIL)atezolizumab (TECENTRIQ) infusiondiphenhydrAMINE (BENADRYL)EPINEPHrinefamotidi ne (PEPCID)hydrocortisone (SOLU-CORTEF) IVmeperidine (DEMEROL) 25 MG/MLSaline Flush 0.9 %sodium chloride (NS) 0.9 %sodium chloride 0.9% bolus (NS) albuterol (PROVENTIL) nebulizer solution 2.5 mgatezolizumab (TECENTRIQ) 1,600 mg in sodium chloride (NS) 0.9 % 250 mL chemo infusiondiphenhydrAMINE (BENADRYL) injection 50 mgEPINEPHrine (Anaphylaxis) (ADRENALIN) 1 mg/ml (1:1000) inj amp/vial 0.3 mgfamotidine (PEPCID) 20 mg in water for injection, sterile 5 mL Injectionhydrocortisone sodium succinate (Solu-CORTEF) injection (PF) 100 mgmeperidine (DEMEROL) 25 MG/ML injection 25 mgSaline Flush 0.9 % injection 1 Syringesodium chloride 0.9% (NS) infusionsodium chloride 0.9% bolus (NS) 500 mL albuterol (PROVENTIL) nebulizer solution 2.5 mgatezolizumab (TECENTRIQ) 1,600 mg in sodium chloride (NS) 0.9 % 250 mL chemo infusiondiphenhydrAMINE (BENADRYL) injection 50 mgEPINEPHrine (Anaphylaxis) (ADRENALIN) 1 mg/ml (1:1000) inj amp/vial 0.3 mgfamotidine (PEPCID) 20 mg in water for injection, sterile 5 mL Injectionhydrocortisone sodium succinate (Solu-CORTEF) injection (PF) 100 mgmeperidine (DEMEROL) 25 MG/ML injection 25 mgSaline Flush 0.9 % injection 1 Syringesodium chloride 0.9% (NS) infusionsodium chloride 0.9% bolus (NS) 500 mL Past Plans No past plan information found. Radiation Treatments * No radiation treatments are documented for this patient in [facility]. Treatments may have been administered in another system. Lifetime Dose Tracking * Chemical Lifetime Dose Automatic Entry Manual Entr y Radiation 55 mSv 55 mSv 0 mSv Resolved Problems Problem Noted Date Diagnosed Date Resolved Date Urinary retention 01/23/2017 01/07/2020 Gross hematuria 09/29/2020
--- OUTSIDE RECORDS SUMMARY | 2024-06-09 09:09 | XMS_ITS ---
Author Organization [facility] Address [address] [place] [address] Care Team Providers Care Marketing Manager Health Communications Name Role Phone Rolanda King Primary Care Provider Lolita Laureano [phone] REASON FOR VISIT [employer] Encounters Encounter Location Date Provider Diagnosis [address] [address] 01/02/2024 Lolita Altman Plan Of Treatment Next Appt Details Provider Name:Lolita Diaz Agapito , 07/30/2024 08:30:00 AM, [address] [place], [address], Progress Notes * Nelly BENAVIDESDOB: [birth year] (73 yo F)Acc No.[id number]:01/02/2024 Patient:?Nelly Benavides :1950???Age:73 Y???Sex:Female Address:[address] [place] [address], [address] * true * Date:? Generated for Printi oscar/Zain/eTransmitting on:?06/09/2024 09:08 AM EDT
--- OUTSIDE RECORDS SUMMARY | 2024-06-09 09:09 | XMS_ITS | Encounter Summary ---
Author Organization [facility] Address [address] [place] [address] Care Team Providers Care Truck Chauffeur Name Role Phone Rolanda Avila MD Primary Care Prov ider Reason for Visit * Reason Comments Follow-up Encounter Details Date Type Department Care Team (Latest Contact Info) Description 05/27/2024 10:15 AM EST Office Visit [facility] Hematology Oncology [address] [place] [phone] Felicitas Macdonald MD [address] [place] [phone] Malignant neoplasm of overlapping sites of bladder (CMS/HCC) (Primary Dx); Hydronephrosis with ureteropelvic junction (UPJ) obstruction; Nephrostomy status (CMS/HCC); Pleural effusion, bilateral; Chronic deep vein thrombosis (DVT) of both femoral veins (CMS/HCC); Essential hypertension Social History Tobacco Use Types Packs/Day Years [...] for your loved ones. For example, children's institution attendant or elderly care for an older [...] 05/27/2024 1 0:29 AM EST Respiratory Rate - - Oxygen Saturation 97% 05/27/2024 10: 29 AM EST Inhaled Oxygen Concentration - - Weight 47.1 kg (103 lb 12.8 oz) 025 10:29 AM EST Height - - Body Mass Index 17.27 02/05/2024 11:35 AM EST documented in this encounter Progress Notes * Felicitas Macdonald MD - 05/27/2024 10:15 AM EST Update-immunotherapy discontinued after 6.5 years, will continue clinical and lab surveillance. Last date of immunotherapy 05/27/2024 CHIEF COMPLAINT: Chief Complaint Patient presents with Follow-up Bladder cancer, bone mets stasis Current regimen-maintenance atezolizumab, nearly 6.5 years, DC in May 2024 Lung nodules Thrombocytosis-iron deficiency JAK2 negative IDENTIFIER:Nelly Benavides is a 73 y.o. female. HPI: The patient returns for follow up of bladder cancer, bone metastasis For details of initial diagnosis and follow up until JAN 24, 2024- please refer to notes from prior Epic EMR last note dated 12/11/2023 The patient returns for follow up of metastatic bladder cancer after she experienced disease progression, she has completed 6 years of treatment, in July 2023 Patient returns for follow-up prior to cycle #97 of treatment with Tecentriq. Currently receiving 1680 Mg every 4 weeks, patient has been tolerating the higher dose quite well She will have lab work prior to his treatment, labs updated in the new [employer] system Detailed discussion with the patient and her friend today. I reviewed the data for treatment discontinuation, after 3 years, several patients have remained in remission. Risk of side effects increases gradually, therefore I advised her to discontinue the medication and patient agrees. She will continue on every 2 monthly follow-up and every 4 to 6-month interval imaging Also reports pain along the left elbow, worsening, could be arthritis worsening related to immunotherapy Continue follow-up with urology and rheumatology Monitor closely for any worsening of anemia The following is copied, reviewed and edited Cancer Staging No matching staging information was found for the patient. Oncology History Malignant neoplasm of urinary bladder (CMS/HCC) 06/07/2017 Initial Diagnosis Malignant neoplasm of urinary bladder (CMS/HCC) 02/05/2024 - 05/27/2024 Chemotherapy atezolizumab (TECENTRIQ) 1,680 mg in sodium chloride 278 mL chemo IVPB, 1,680 mg, intravenous, Once, 5 of 12 cycles Administration: 1,680 mg (02/05/2024), 1,680 mg (03/05/2024), 1,680 mg (03/31/2024), 1,680 mg (04/29/2024), 1,680 mg (05/27/2024) Secondary malignant neoplasm of bone (CMS/HCC) 11/28/2016 Initial Diagnosis Secondary malignant neoplasm of bone (CMS/HCC) 02/05/2024 - 05/27/2024 Chemotherapy atezolizumab (TECENTRIQ) 1,680 mg in sodium chloride 278 mL chemo IVPB, 1,680 mg, intravenous, Once, 5 of 12 cycles Administration: 1,680 mg (02/05/2024), 1,680 mg (03/05/2024), 1,680 mg (03/31/2024), 1,680 mg (04/29/2024), 1,680 mg (05/27/2024) 66-year-old lady returns for medical oncology evaluation and discussion of biopsy results after recent hospitalization as discussed below. Biopsy results are now available from [facility], indicates high-grade urothelial carcinoma with muscle invasion. Imaging studies, CT of abdomen and pelvis indicate lytic skeletal lesions, concerning for skeletal metastasis. An ill-defined pelvic mass, inseparable from pelvic organs, bladder base, cervix and lower uterine segment vaginal and ano- rectal junction was also see n. This was approximately 12 cm in size. Lymph node metastases were also present in the presacral, external iliac chains on bilateral pelvic area. -- a patient with performance status: ECOG 1, presenting with anemia and in the course of investigation found to have metastatic bladder cancer. I discussed with the patient and her [id number] completing her regarding the diagnosis, staging, further workup, overall care plan I recommend completion of staging CT scan of the chest with IV contrast and a bone scan. I recommend treatment with systemic chemotherapy, in a palliative fashion with carboplatin AUC of 6, day 1 and gemcitabine 1000 MG per square meter, day 1, 8. . Cycles will be every 21 days 03/2022 - Patient reports recent appointment with rheumatology. She was started on leflunomide. She reports left arm pain. She had a cervical MRI, that seems to indicate neural foraminal narrowing in the C6 area due to arthritis. Some myelomalacia. I recommended contacting the technology administrator office, check whether a joint injection may be in order 08/2022 - In the interim she underwent restaging imaging on 09/06/2022, reviewed in detail with her. It showedno evidence of intrathoracic adenopathy, no CT evidence of developing solid mass or lymphadenopathywithin the abdomen or pelvis. It showed mixed attenuation pulmonary nodules 1.2 cm, 1.2 cm in the left upper lobe, stable in size. The hydronephrosis hydroureter on the right side, no evidence of obstructing calculus. May be due to vesicoureteral reflux. Known radio dense calculus or stricture. Patient reports that she is feeling well and pain is fairly well controlled. Latest lab work is reviewed with her. Creatinine is stable around 1.65, no anemia platelets slightly raised Also c/o pain in joints despite oxycodone and Also leflunodmide nearly 6 months Awaiting Rheumatology follow up ROS: GENERAL: No malaise, significant weight loss or fever NECK: No lumps, goiter, pain or significant neck swelling RESPIRATORY: No cough, wheezing or shortness of breath CARDIOVASCULAR: No chest pain, leg swelling or palpitations GI: No abdominal discomfort, blood in stools or black stools MUSCULOSKELETAL: No joint pain or swelling, back pain, or muscle pain. HEMATOLOGY/LYMPHOLOGY No prolonged bleeding, easy bruisability or swollen nodes Other Systems review is non contributory PAST MEDICAL HISTORY: Active Ambulatory Problems Diagnosis Date Noted Chronic deep vein thrombosis (DVT) of both femoral veins ([facility]) 07/06/2019 Diastolic congestive heart failure ([facility] [place]) 04/25/2018 Essential hypertension 06/07/2017 Protein-calorie malnutrition, moderate ([facility] [place]) 07/08/2018 Iron deficiency anemia due to chronic blood loss 11/28/2016 Malignant neoplasm of urinary bladder ([facility]) 06/07/2017 Secondary malignant neoplasm of bone ([facility] [place]) 11/28/2016 Thrombocythemia 07/08/2018 Hydronephrosis 08/10/2020 Gross hematuria 08/10/2020 Retention, urine 08/10/2020 Primary insomnia 02/18/2018 Acquired genu valgum of left knee 12/28/2019 Osteoarthritis of hand 12/04/2010 Rheumatoid arthritis, seropositive, multiple sites ([facility]) 03/22/2010 Abnormal CXR 09/05/2018 Pleural effusion, bilateral 04/25/2018 Primary osteoarthritis of both knees 02/17/2019 S/P total knee replacement, left 01/12/2020 Lung nodule 02/22/2020 Acute pain of left shoulder 12/05/2021 Chronic pain of both knees 02/17/2019 Healthcare-associated pneumonia 06/06/2018 Nephrostomy status ([facility] [place]) 07/08/2018 Prediabetes 12/15/2019 Hypothyroidism due to medication 02/04/2024 Resolved Ambulatory Problems Diagnosis Date Noted No Resolved Ambulatory Problems Past Medical History: Diagnosis Date Abnormal ECG Anemia Bladder mass Cancer ([facility]) Cancer of overlapping sites of bladder ([facility] [place]) CHF (congestive heart failure) ([facility] [place]) Chronic venous insufficiency CKD (chronic kidney disease) Deep vein thrombosis ([facility]) 2013 Degenerative arthritis of knee, bilateral MEEK (dyspnea on exertion) History of transfusion Hypertension Hypoalbuminemia Osteoarthritis Peripheral neuropathy Pleural effusion Pneumonia Rheumatoid arthritis ([facility]) Rheumatoid arthritis ([facility]) Thrombocytosis Urinary incontinence Urinary urgency SOCIAL HISTORY: Social History Tobacco Use Smoking status: Former Current packs/day: 0.00 Types: Cigarettes Quit date: 08/09/1989 Years since quittin.8 Smokeless tobacco: Never Substance Use Topics Alcohol use: No FAMILY HISTORY: Family History Problem Relation Name Age of Onset Heart disease Mother MURMUR Arthritis Mother Hypertension Mother Stroke Father 82 Hypertension Father Current Outpatient Medications: acetaminophen (TYLENOL) 500 mg tablet, Take 1 tablet (500 mg total) by mouth., Disp: , Rfl: apixaban (ELIQUIS) 2.5 mg tablet, Take 1 tablet (2.5 mg total) by mouth 2 (two) times a day., Disp:, Rfl: furosemide (LASIX) 20 mg tablet, Take 1 tablet (20 mg total) by mouth 1 (one) time each day., Disp:, Rfl: lactose-reduced food (ENSURE COMPLETE ORAL), Take 237 mL by mouth., Disp: , Rfl: leflunomide (ARAVA) 20 mg tablet, , Disp: , Rfl: metoprolol succinate (TOPROL-XL) 25 mg 24 hr tablet, Take 1 tablet (25 mg total) by mouth 1 (one) time each day., Disp: , Rfl: oxyCODONE (ROXICODONE) 5 mg immediate release tablet, Take 1 tablet (5 mg total) by mouth every 4 (four) hours if needed for severe pain. Max Daily Amount: 30 mg, Disp: 60 tablet, Rfl: 0 senna-docusate (PERICOLACE) 8.6-50 mg per tablet, Take 1 tablet by mouth., Disp: , Rfl: sulfaSALAzine (AZULFIDINE) 500 mg tablet, Take 1 Tablet by mouth 2 times daily., Disp: , Rfl: No current facility-administered medications for this visit. Allergies Allergen Reactions Cefadroxil Other PATIENT UNSURE Doxycycline Hyclate Diarrhea Penicillins Itching and Rash PHYSICAL EXAM: Visit Vitals BP (!) 155/90 (BP Location: Right arm, Patient Position: Sitting, BP Cuff Size: Small adult) Pulse 100 Temp 36.5 ??C (97.7 ??F) (Temporal) Wt 47.1 kg (103 lb 12.8 oz) SpO2 97% BMI 17.27 kg/m?? OB Status Postmenopausal Smoking Status Former BSA 1.5 m?? APPEARANCE: Alert and in no acute distress EYES: PERRL, conjunctiva pink and sclera are Normal without icterus ORAL CAVITY: No erythema or exudates NECK: Neck supple, no adenopathy, HEART: RRR with normal S1 and S2, no murmurs, no gallops, no JVD appreciated LUNG: clear to auscultation bilaterally Percussion note normal LYMPH NODES: No palpable superficial adenopathy ABDOMEN: Bowel sounds normoactive, no bruits, soft, non-tender, without organomegaly or palpable masses EXTREMITIES: Extremities warm and well perfused without clubbing, cyanosis, rash or edema NEURO: Oriented X 3, no focal weakness; sensation is normal LABS: Review of Lab results , interpreted Lab Results Component Value Date WBC 6.6 05/19/2024 HGB 11.0 (L) 05/19/2024 HCT 36.9 05/19/2024 MCV 85.6 05/19/2024 PLT 424 (H) 05/19/2024 Lab Results Component Value Date NA 140 05/19/2024 K 4.6 05/19/2024 CL 112 (H) 05/19/2024 CO2 20 (L) 05/19/2024 GLUCOSE 88 05/19/2024 BUN 37 (H) 05/19/2024 CREATININE 1.79 (H) 05/19/2024 CALCIUM 9.7 05/19/2024 PROT 7.3 05/19/2024 ALBUMIN 3.7 05/19/2024 BILITOT 0.5 05/19/2024 AST 21 05/19/2024 ALT 19 05/19/2024 ALKPHOS 109 05/19/2024 EGFR 29 (L) 05/19/2024 Review of Imaging, interpreted IR Exchange Cath Nephrostomy Left Indication: Ureteral obstruction with routine left nephrostomy tube change Technique/findings: Written informed consent obtained and patient placed in the right lateral decubitus position on the angiographic table. Left-sided Nephrostomy tube was prepped using maximum sterile barrier. Nephrostogram demonstrates pigtail formed within a renal calyx. Catheter cut and removedover short Amplatz wire. New 8 Azeri nephrostomy tube advanced over the wire with [...] Signed Date: 04/15/2024 09:38 ET Workstation ID: [id number] Transcribed By: Self Edit Transcribed Date: 04/15/2024 09:37 ET Review of External Documentation Notes from urology Tests ordered -lab work prior to each treatment every 4 weeks IMPRESSION: 1. Malignant neoplasm of overlapping sites of bladder (CMS/HCC) 2. Hydronephrosis with ureteropelvic junction (UPJ) obstruction 3. Nephrostomy status (CMS/HCC) 4. Pleural effusion, bilateral 5. Chronic deep vein thrombosis (DVT) of both femoral veins (CMS/HCC) 6. Essential hypertension PLAN: 73 -year-old lady, Karnofsky 70 functional status, requiring assistance for some instrumental activities of daily living #1 metastatic bladder cancer - diagnosed in October 2016-completed more than 7 years since diagnosis -She has been on on immunotherapy, with T ecentriq, since JULY 2017, nearly 6 years Patient is tolerating medication every 4 weeks, currently at increased dose since November 2023, has completed 6.5 years She has previously received chemotherapy with carboplatin/gemcitabine, may benefit from second linechemotherapy such as Taxotere if significant disease progression, She will receive treatment today, and thereafter discontinue it Plan for next imaging in 6 months, in August/September, patient agrees, will order after next visit #2 Arthritis , bilateral knee and hands, osteo- vs rheumatoid Completed bilateral knee replacement, uses pain meds -- stable Appears to have some worsening, with left elbow pain, may be related to immunotherapy #3 Stage imaging, cervical MRI reviewed, appears to have C7 neuroforaminal narrowing -Continues on rheumatology follow-up #4 anemia of neoplastic disease,monitor with CBC, differential prior to each treatment Also iron deficiency-benefited from iron infusions in the previous year If platelet count goes above 600, can try IV iron infusion again, it has been effective previously Platelet count has improved, continue to monitor Q 8 weeks #5 CKD, avoid IV contrast Creatinine has stabilised after , nephrostomy tube change, right-sided hydronephrosis noted Recent increase noted on, 2.1, avoid IV contrast Hydronephrosis is decompressed after recent nephrostomy tub change 1 month ago #6 DVT/ PE --on Eliquis, continue , would continue to hold if any procedures are planned, recommendholding for 3 days prior. #7 Weight loss has stabilized Follow-up in 8 weeks and sooner if new issues arise. --Patient and her friend agree with this plan Pain Control--oxycodone as needed her daughter Health Care Proxy--her son Felicitas Macdonald MD Cc Rolanda Martinez MD Cc urology [facility], Previously following with Dr. Lemon documented in this encounter Plan of Treatment Upcoming Encounters Date Type Department Care Team (Late st Contact Info) Description 07/13/2024 10:00 AM EDT Appointment [facility] Interventional Radiology [address] [place] [phone] 07/22/2024 10:30 AM EDT Office Visit [facility] Hematology Oncology [address] [place] [phone] Felicitas Macdonald MD [address] [place] [phone] 11/11/2024 1:00 PM EDT Office Visit Nephrology [address] [phone] Efe Ramirez MD [address] [facility] [address] [place] [phone] 04/20/2025 2:00 PM EST Office Visit [facility] [address] [phone] Rolanda Avila MD [address] [place] [address] documented as of this encounter Visit Diagnoses Diagnosis Malignant neoplasm of overlapping sites of bladder (CMS/HCC)- Primary Hydronephrosis with ureteropelvic junction (UPJ) obstruction Nephrostomy status (CMS/HCC) Status of other artificial opening of urinary tract Pleural effusion, bilateral Unspecified pleural effusion Chronic deep vein thrombosis (DVT) of both femoral veins (CMS/HCC) Essential hypertension Unspecified essential hypertension documented in this encounter Additional Health Concerns Assessment Noted Time PHQ-9 Depression Total Score: 0 04/16/19 25 10:58 AM EST documented as of this encounter Care Teams Truck Chauffeur Relationship Specialty Start Date End Date Rolanda Avila MD [address] [place] [phone] PCP - General Internal Medicine 10/23/21 documented as of this encounter
== END 2024-06-09 09:23 | disposition home or self-care (01) ==
LOC: HO.RHES 08:45
PROVIDERS: Visit Provider Internal Medicine Rheumatology
DX: M05.79 Rheumatoid arthritis with rheumatoid factor of multiple sites without organ or systems involvement (principal); Z79.899 Other long term (current) drug therapy
CPT/HCPCS: 99214; G2211

== ENCOUNTER 2024-06-09 08:45 | Outpatient (REF) | payer MEDICARE, OTHER, SELFPAY ==
--- NOTE | ~2024-06-09 | XR_ITS ---
EXAMINATION: XR SHOULDER 2 OR MORE VIEWS LEFT HISTORY: M05.79 - Rheumatoid arthritis with rheumatoid factor of multiple sites COMPARISON: There are no prior studies available for comparison. FINDINGS: Three views of the left shoulder are submitted. Osseous mineralization is normal. There is erosion of the distal clavicle. The humeral head is high riding, articulating with the undersurface of the acromion, compatible with rotator cuff arthropathy. There is erosive deformity of the humeral head. No fracture is seen. One of the images demonstrates a possible pulmonary nodule at the left lung apex. XR/XR shoulder LT min 2V IMPRESSION: 1. Erosion of the distal clavicle and humeral head. No fracture is seen. 2. High riding humeral head compatible with rotator cuff arthropathy. 3. Possible left apical pulmonary nodule. Further evaluation with chest CT is recommended. Electronically signed by: Lake Salcedo MD 06/09/2024 02:10 PM EDT
--- OUTSIDE RECORDS SUMMARY | 2024-06-09 11:17 | XMS_ITS | Encounter Summary ---
Author Organization [facility] Address [address] [place] [address] Care Team Providers Care Dye Reel Operator Helper Name Role Phone Rolanda Alcala MD Primary Care Prov ider Encounter Details Date Type Department Care Team Description 01/08/[address] [facility] Oncology Services [address] [place] [address] [facility] Social History Tobacco Use Types [...] on filedocumented in this encounter Care Teams Dye Reel Operator Helper Relationship Specialty Start Date End Date Rolanda Alcala MD [address] [place] [address] PCP - General Internal Medicine 10/25/22 documented as of this encounter
--- OUTSIDE RECORDS SUMMARY | 2024-06-09 11:17 | XMS_ITS | Encounter Summary ---
Author Organization [facility] Address [address] [place] [address] Care Team Providers Care Supervisor Home Economics Name Role Phone Rolanda Alcala MD Primary Care Prov ider Encounter Details Date Type Department Care Team Description 01/18/2023 Social Work [facility] Oncology Services [address] [place] [address] [facility] Social History Tobacco Use Types Packs/Day [...] on filedocumented in this encounter Care Teams Supervisor Home Economics Relationship Specialty Start Date End Date Rolanda Alcala MD [address] [place] [address] PCP - General Internal Medicine 10/25/22 documented as of this encounter
--- OUTSIDE RECORDS SUMMARY | 2024-06-09 11:17 | XMS_ITS ---
Author Organization [facility] Address [address] [place] [address] Phone Care Team Providers Care Filleter Name Role Phone Rolanda Avila MD Primary [...] treatments are documented for this patient in [facility]. Treatments may have been administered in another system. Lifetime Dose Tracking * Chemical Lifetime Dose Automatic Entry Manual Entr y Fluoro Time 1 minutes 1 minutes 0 minutes Air Kerma 225 mGy 225 mGy 0 mGy
--- OUTSIDE RECORDS SUMMARY | 2024-06-09 11:17 | XMS_ITS | Clinical Summary ---
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); Malignant neoplasm of overlapping sites of bladder (CMS/HCC); Secondary malignant neoplasm of bone (CMS/HCC) Discharge Disposition: Home or Self Care 05/27/2024 10:15 AM EST Office Visit [facility] Hematology Oncology [address] [place] [phone] Felicitas Zepeda MD Malignant neoplasm of overlapping sites of bladder (CMS/HCC) (Primary Dx); Hydronephrosis with ureteropelvic junction (UPJ) obstruction; Nephrostomy status (CMS/HCC); Pleural effusion, bilateral; Chronic deep vein thrombosis (DVT) of both femoral veins (CMS/HCC); Essential hypertension 04/29/2024 9:54 AM EST - 04/29/2024 11:59 PM EST Hospital Encounter [facility] [address] [place] [phone] Felicitas Zepeda MD Malignant neoplasm of overlapping sites of bladder (CMS/HCC) (Primary Dx); Secondary malignant neoplasm of bone (CMS/HCC); Hypothyroidism due to medication Discharge Disposition: Home or Self Care 04/16/2024 11:00 AM EST Office Visit [address] [phone] Rolanda Sifuentes MD Chronic deep vein thrombosis (DVT) of both femoral veins (CMS/HCC) (Primary Dx); Essential hypertension; Stage 4 chronic kidney disease (CMS/HCC); Encounter for screening involving social determinants of health (SDoH); Screening for depression 04/14/2024 9:43 AM EST - 04/14/2024 11:59 PM EST Hospital Encounter [facility] Interventional Radiology [address] [place] [phone] Hydronephrosis Discharge Disposition: Home or Self Care 03/31/2024 10:30 AM EST - 03/31/2024 11:59 PM EST Hospital Encounter [facility] [address] [place] [phone] Felicitas Zepeda MD Malignant neoplasm of overlapping sites of bladder (CMS/HCC) (Primary Dx); Secondary malignant neoplasm of bone (CMS/HCC); Hypothyroidism due to medication Discharge Disposition: Home or Self Care 03/31/2024 10:15 AM EST Office Visit [facility] Hematology Oncology [address] [place] [phone] Felicitas Zepeda MD Malignant neoplasm of overlapping sites of bladder (CMS/HCC) (Primary Dx); Primary osteoarthritis of both hands; Hypothyroidism due to medication; Iron deficiency anemia due to chronic blood loss; Rheumatoid arthritis, seropositive, multiple sites (CMS/HCC) 03/26/2024 10:29 AM EST - 03/26/2024 11:59 PM EST Hospital Encounter [facility] CT Scan [address] [place] [address] Malignant neoplasm of overlapping sites [...] TOTAL KNEE; Surgeon: Frank Ramesh MD; Location: [facility]); Service: Orthopedics; Laterality: Right; TOTAL KNEE ARTHROPLASTY 12/28/2019 Left PROCEDURE:TOTAL KNEE ARTHROPLASTY;COMMENT:Procedu re: REPLACEMENT TOTAL KNEE; Surgeon: Frank Ramesh MD; Location: [facility] ([facility]); Service: Orthopedics; Laterality: Left; Medical History [...] for your loved ones. For example, children's choir director or elderly care for an older [...] Info) Description 07/13/2024 10:00 AM EDT Appointment [facility] Interventional Radiology [address] [place] [phone] 07/22/2024 10:30 AM EDT Office Visit [facility] Hematology Oncology [address] [place] [phone] Felicitas Macdonald MD [address] [place] [phone] 11/11/2024 1:00 PM EDT Office Visit Nephrology [address] [phone] Efe Ramirez MD [address] [phone] 04/20/2025 2:00 PM EST Office Visit [facility] [address] [phone] Rolanda Avila MD [address] [place] [address] Health Maintenance Due Date Last Done Comments [...] this topic Medical Devices Implanted Type Area Tow Motor Mechanic Device Identifier Shelf Expiration Date Model / Serial / Lot Cement Bone Simplex High Viscosity 20ml 40gm 10\Pack - [id number] Implanted:Qty: 1 on 08/19/2019 by Frank Ramesh MD Right: Knee [employer] 05/22/2020 6194-1-010 / / [id number] Cement Bone Simplex High Viscosity 20ml 40gm 10\[facility] - [id number] Implanted:Qty: 1 on 08/19/2019 by Frank Ramesh MD Right: Knee [employer] 05/22/2020 6194-1-010 / / [id number] Component Triathlon 3 Posterior Stabilized Cemented Femoral - [id number] Implanted:Qty: 1 on 08/19/2019 by Frank Ramesh MD Right: Knee [employer] [id number] 09/01/2023 5515-F-302 / / [id number] Baseplate Triathlon 3 Vining Totl Stabilized Cocr Tibial - [id number] Implanted:Qty: 1 on 08/19/2019 by Frank Ramesh MD Right: Knee [employer] [id number] 10/13/2023 5521-B-300 / / [id number] Stem Triathlon 50mm 12mm Cemented Totl Stabilized Cocr - [id number] Implanted:Qty: 1 on 08/19/2019 by Frank Ramesh MD Right: Knee [employer] [id number] 01/28/2024 5560-S-112 / / [id number] Component Triathlon 9mm 33mm Symmetric X3 Ptlar Knee - [id number] Implanted:Qty: 1 on 08/19/2019 by Frank Ramesh MD Right: Knee [employer] [id number] 12/16/2023 5550-G-339 / / [id number] Plug Artisan Medium 25mm Plug Bone Cement - [id number] Implanted:Qty: 1 on 08/19/2019 by Frank Ramesh MD Right: Knee [employer] [id number] 02/16/2024 6215-5-011 / / [id number] Insert Triathlon 3 9mm Totl Stabilized Plus X3 Tibial Knee - [id number] Implanted:Qty: 1 on 08/19/2019 by Frank Ramesh MD Right: Knee [employer] [id number] 01/15/2023 5537-G-309 / / [id number] Cement Bone Simplex High Viscosity 20ml 40gm 10\Pack - [id number] Implanted:Qty: 1 on 12/28/2019 by Frank Ramesh MD Left: Knee [employer] [id number] 09/21/2020 6194-1-010 / / [id number] Plug Artisan Medium 25mm Plug Bone Cement - [id number] Implanted:Qty: 1 on 12/28/2019 by Frank Ramesh MD Left: Knee [employer] [id number] 10/21/2024 6215-5-011 / / [id number] Peg Triathlon Modular Fix Distal Femur Knee - [id number] Implanted:Qty: 1 on 12/28/2019 by Frank Ramesh MD Left: Knee [employer] [id number] 05/13/2024 5575-X-000 / / [id number] Component Triathlon 9mm 33mm Symmetric X3 Ptlar Knee - [id number] Implanted:Qty: 1 on 12/28/2019 by Frank Ramesh MD Left: Knee [employer] [id number] 11/03/2024 5550-G-339 / / [id number] Baseplate Triathlon 3 Vining Totl Stabilized Cocr Tibial - [id number] Implanted:Qty: 1 on 12/28/2019 by Frank Ramesh MD Left: Knee [employer] [id number] 02/13/2024 5521-B-300 / / [id number] Component Triathlon 3 Posterior Stabilized Cemented Femoral - [id number] Implanted:Qty: 1 on 12/28/2019 by Frank Ramesh MD Left: Knee [employer] [id number] 11/05/2022 5515-F-301 / / [id number] Stem Triathlon 50mm 12mm Cemented Totl Stabilized Cocr - [id number] Implanted:Qty: 1 on 12/28/2019 by Frank Ramesh MD Left: Knee [employer] [id number] 01/04/2024 5560-S-112 / / [id number] Insert Triathlon 3 9mm Totl Stabilized Plus X3 Tibial Knee - [id number] Implanted:Qty: 1 on 12/28/2019 by Frank Ramesh MD Left: Knee [employer] [id number] 05/07/2023 5537-G-309 / / [id number] Cement Bone Simplex High Viscosity 20ml 40gm 10\[employer] - [id number] Implanted:Qty: 1 on 12/28/2019 by Frank Ramesh MD Left: Knee [employer] [id number] 10/22/2020 6194-1-010 / / [id number] Procedures Procedure Name Priority Date/Time Associated Diagnosis [...] LAB CHEMISTRY METHOD 06/04/2024 2:36 PM EDT [facility] eGFR 29(L) >=60 mL/min/1. 73m2 LAB CHEMISTRY METHOD 06/04/2024 2:36 PM EDT [facility] Comment:Calculation based on the??Chronic Kidney Disease Epidemiology Collaboration (CKD-EPI) equation refit??without adjustment for race. Blood Venous blood specimen / Unknown Venipuncture / Unknown 06/04/2024 10:37 AM EDT 06/04/2024 10:37 AM EDT us Guanakito Nicol Chilel MD LAB BLOOD ORDERABLES Maye l Result [facility] [address] [place] [address], * (ABNORMAL) Sedimentation rate (06/04/2024 10:37 AM EDT) Sed Rate 63(H) 0 - 30 mm/hr LAB HEMETOLOGY METHOD 06/04/2024 12:25 PM EDT [facility] Blood Venous blood specimen / Unknown Venipuncture / Unknown 06/04/2024 10:37 AM EDT 06/04/2024 10:37 AM EDT us Guanakito Chilel MD LAB BLOOD ORDERABLES Maye savannah Result [facility] [address] [place] [address], [place] [phone] * (ABNORMAL) Complete blood count (06/04/2024 10:37 AM EDT) [facility] WBC 8.5 4.8 - 10.8 K/mcL LAB HEMETOLOGY METHOD 06/04/2024 12:17 PM EDT [facility] RBC 4.10 3.80 - 4.80 M/mcL LAB HEMETOLOGY METHOD [facility] Hemoglobin 10.8(L) 11.5 - 16.0 g/dL LAB HEMETOLOGY METHOD 06/04/2024 12:17 PM EDT [facility] Hematocrit 35.4 35.0 - 47.0 % LAB HEMETOLOGY METHOD 06/04/2024 12:17 PM EDT [facility] MCV 85.7 79.0 - 98.0 FL LAB HEMETOLOGY METHOD 06/04/2024 12:17 PM [facility] MCH 26.2(L) 27.0 - 32.0 pcg LAB HEMETOLOGY METHOD 06/04/2024 12:17 PM EDT [facility] MCHC 30.5(L) 32.0 - 37.0 g/dL LAB HEMETOLOGY METHOD 06/04/2024 [facility] RDW 17.0(H) 11.0 - 15.0 % LAB HEMETOLOGY METHOD 06/04/2024 [facility] Platelets 488(H) 130 - 400 K/mcL LAB HEMETOLOGY METHOD 06/04/2024 12:17 PM EDT [facility] MPV 9.4 7.0 - 11.0 FL LAB HEMETOLOGY METHOD 06/04/2024 12:17 PM EDT [facility] NRBC 0.0 <1.0 % LAB HEMETOLOGY METHOD 06/04/2024 12:17 PM EDT [facility] NRBC Absolute 0.00 <0.10 K/mcL LAB HEMETOLOGY METHOD 06/04/2024 12:17 PM EDT [facility] Blood Venous blood specimen / Unknown Venipuncture / Unknown 06/04/2024 10:37 AM EDT 06/04/2024 10:37 AM EDT Guanakito Chilel MD LAB BLOOD ORDERABLES Maye l Result Performing Organization Address City/[facility]/ZIP Co de Phone Number [facility] [address] [place] [address], * Alanine aminotransferase (06/04/2024 10:37 AM EDT) ALT (SGPT) 23 10 - 60 unit/L LAB CHEMISTRY METHOD 06/04/2024 2:36 PM EDT [facility] Blood Venous blood specimen / Unknown Venipuncture / Unknown 06/04/2024 10:37 AM EDT 06/04/2024 10:37 AM EDT Guanakito Chilel MD LAB BLOOD ORDERABLES Maye l Result [facility] [address] [place] [address], [place] [phone] * Aspartate aminotransferase (06/04/2024 10:37 AM EDT) AST (SGOT) 19 10 - 42 unit/L LAB CHEMISTRY METHOD 06/04/2024 2:36 PM EDT [facility] Blood Venous blood specimen / Unknown Venipuncture / Unknown 06/04/2024 10:37 AM EDT 06/04/2024 10:37 AM EDT us Guanakito Chilel MD LAB BLOOD ORDERABLES Maye savannah Result [facility] [address] [place] [address], [place] [phone] * (ABNORMAL) CBC auto differential (05/19/2024 10:25 AM EST) Only the most recent of3 resultswithin the time period is included. WBC 6.6 4.8 - 10.8 K/mcL LAB HEMETOLOGY METHOD 05/19/2024 12:39 PM [facility] RBC 4.30 3.80 - 4.80 M/mcL LAB HEMETOLOGY METHOD 05/19/2024 12:39 PM [facility] Hemoglobin 11.0(L) 11.5 - 16.0 g/dL LAB HEMETOLOGY METHOD 05/19/2024 12:39 PM [facility] Hematocrit 36.9 35.0 - 47.0 % LAB HEMETOLOGY METHOD 05/19/2024 12:39 PM [facility] MCV 85.6 79.0 - 98.0 FL LAB HEMETOLOGY METHOD 05/19/2024 12:39 PM [facility] MCH 25.5(L) 27.0 - 32.0 pcg LAB HEMETOLOGY METHOD 05/19/2024 12:39 PM [facility] MCHC 29.8(L) 32.0 - 37.0 g/dL LAB HEMETOLOGY METHOD 05/19/2024 12:39 PM [facility] RDW 16.6(H) 11.0 - 15.0 % LAB HEMETOLOGY METHOD 05/19/2024 12:39 PM [facility] Platelets 424(H) 130 - 400 K/mcL LAB HEMETOLOGY METHOD 05/19/2024 12:39 PM [facility] MPV 9.8 7.0 - 11.0 FL LAB HEMETOLOGY METHOD 05/19/2024 12:39 PM [facility] NRBC 0.0 <1.0 % LAB HEMETOLOGY METHOD 05/19/2024 12:39 PM [facility] NRBC Absolute 0.00 <0.10 K/mcL LAB HEMETOLOGY METHOD 05/19/2024 12:39 PM [facility] Neutrophils Relative 73.2 % LAB HEMETOLOGY METHOD 05/19/2024 12:39 PM [facility] Lymphocytes Relative 15.5 % LAB HEMETOLOGY METHOD 05/19/2024 12:39 PM [facility] Monocytes Relative 10.0 % LAB HEMETOLOGY METHOD 05/19/2024 12:39 PM [facility] Eosinophils Relative 0.0 % LAB HEMETOLOGY METHOD 05/19/2024 12:39 PM [facility] Basophils Relative 0.8 % LAB HEMETOLOGY METHOD 05/19/2024 12:39 PM [facility] Immature Granulocytes Relative 0.5 % LAB HEMETOLOGY METHOD 05/19/2024 12:39 PM [facility] Neutrophils Absolute 4.82 1.50 - 7.00 K/mcL LAB HEMETOLOGY METHOD 05/19/2024 12:39 PM [facility] Lymphocytes Absolute 1.02 1.00 - 5.00 K/mcL LAB HEMETOLOGY METHOD 05/19/2024 12:39 PM [facility] Monocytes Absolute 0.66 0.20 - 1.00 K/mcL LAB HEMETOLOGY METHOD 05/19/2024 12:39 PM [facility] Eosinophils Absolute 0.00 0.00 - 0.50 K/[facility] LAB HEMETOLOGY METHOD 05/19/2024 12:39 PM EST [facility] Basophils Absolute 0.05 0.00 - 0.20 K/[facility] LAB HEMETOLOGY METHOD 05/19/2024 12:39 PM EST [facility] Immature Granulocytes Absolute 0.03 0.00 - 0.03 K/[facility] LAB HEMETOLOGY METHOD 05/19/2024 12:39 PM EST [facility] Blood Venous blood specimen / Unknown Venipuncture / Unknown 05/19/2024 10:25 AM EST 05/19/2024 10:26 AM EST us Felicitas Macdonald MD LAB BLOOD ORDERABLE S Final Result Performing Organization Address City/[facility]/ZIP Co de Phone Number [facility] [address] [place] [address], * Thyroid stimulating hormone (05/19/2024 10:25 AM EST) Only the most recent of3 resultswithin the time period is included. Pathologist [facility] TSH 3.19 0.40 - 4.00 mcIU/mL LAB CHEMISTRY METHOD 05/19/2024 2:31 PM EST [facility] Blood Venous blood specimen / Unknown Venipuncture / Unknown 05/19/2024 10:25 AM EST 05/19/2024 10:26 AM EST Felicitas Macdonald MD LAB BLOOD ORDERABLE S Final Result Performing Organization Address City/[facility]/ZIP Co de Phone Number [facility] [address] [place] [address], * (ABNORMAL) Comprehensive metabolic panel (05/19/2024 10:25 AM EST) Only the most recent of3 resultswithin the time period is included. Pathologist [facility] Sodium 140 133 - 145 mmol/L LAB CHEMISTRY METHOD 05/19/2024 2:23 PM [facility] Potassium 4.6 3.5 - 5.5 mmol/L LAB CHEMISTRY METHOD 05/19/2024 2:23 PM [facility] Chloride 112(H) 96 - 110 mmol/L LAB CHEMISTRY METHOD 05/19/2024 2:23 PM [facility] CO2 20(L) 21 - 32 mmol/L LAB CHEMISTRY METHOD 05/19/2024 2:23 PM [facility] Anion Gap 8 3 - 11 LAB CHEMISTRY METHOD 05/19/2024 2:23 PM [facility] Glucose 88 70 - 100 mg/dL LAB CHEMISTRY METHOD 05/19/2024 2:23 PM [facility] BUN 37(H) 5 - 25 mg/dL LAB CHEMISTRY METHOD 05/19/2024 2:23 PM [facility] Creatinine 1.79(H) 0.50 - 1.10 mg/dL LAB CHEMISTRY METHOD 05/19/2024 2:23 PM [facility] eGFR 29(L) >=60 mL/min/1. 73m2 LAB CHEMISTRY METHOD 05/19/2024 2:23 PM [facility] Comment:Calculation based on the??Chronic Kidney Disease Epidemiology Collaboration (CKD-EPI) equation refit??without adjustment for race. BUN/Creatinine Ratio 20.7 LAB CHEMISTRY METHOD 05/19/2024 2:23 PM [facility] Calcium 9.7 8.5 - 10.5 mg/dL LAB CHEMISTRY METHOD 05/19/2024 2:23 PM [facility] AST (SGOT) 21 10 - 42 unit/L LAB CHEMISTRY METHOD 05/19/2024 2:23 PM [facility] ALT (SGPT) 19 10 - 60 unit/L LAB CHEMISTRY METHOD 05/19/2024 2:23 PM [facility] Alkaline Phosphatase 109 42 - 121 unit/L LAB CHEMISTRY METHOD 05/19/2024 2:23 PM EST [facility] Total Protein 7.3 6.0 - 8.0 g/dL LAB CHEMISTRY METHOD 05/19/2024 2:23 PM EST [facility] Albumin 3.7 3.2 - 5.0 g/dL LAB CHEMISTRY METHOD 05/19/2024 2:23 PM EST [facility] Total Bilirubin 0.5 0.0 - 1.4 mg/dL LAB CHEMISTRY METHOD 05/19/2024 2:23 PM EST [facility] Blood Venous blood specimen / Unknown Venipuncture / Unknown 05/19/2024 10:25 AM EST 05/19/2024 10:26 AM EST us Subrammaryanne Macdonald MD LAB BLOOD ORDERABLE S Final Result [facility] [address] [place] [address], [place] [phone] * IR Exchange Cath Nephrostomy Left (04/14/2024 [...] removed over short Amplatz wire. New 8 Lao nephrostomy tube advanced over the wire with [...] Signed Date: 04/15/2024 09:38 ET Workstation ID: [id number] Transcribed By: Self Edit Transcribed Date: 04/15/2024 [...] removed over short Amplatz wire. New 8 Lao nephrostomy tubeadvanced over the wire with pigtail [...] Signed Date: 04/15/2024 09:38 ET Workstation ID: [id number] Transcribed By: Self Edit Transcribed Date: 04/15/2024 09:37 ET us Lauryn Abreu DIRECT CARE SUPERVISOR IMG IR PROCEDURES Final R esult * [...] correlation with functional status recommended. [employer] [place] ([id number]) -------- FINAL REPORT -------- Dictated By: Johana Waters Dictated Date: 03/31/2024 11:17 ET Assigned Physician: Johana Waters Reviewed and Electronically Signed By: Johana Waters Signed Date: 03/31/2024 11:40 ET Workstation ID: [id number] Transcribed By: Self Edit Transcribed Date: 03/31/2024 11:17 ET Narrative 03/31/2024 11:40 AM EST History: Bladder carcinoma, invasive. Metastatic disease. Assess treatment response. Comparison: 11/27/23 Technique: Helical volumetric imaging of the chest, abdomen and pelvis was performed without intravenous or oral contrast. DLP: 616.74 mGy/cm DynamicOps VCT Iterative reconstruction technique Findings: Chest: The [...] intravenous or oral contrast. DLP: 616.74 mGy/cm DynamicOps VCT Iterative reconstruction technique Findings: Chest: The [...] positioned; correlation with functional statusrecommended. [employer]eler[employer] HITESH ([id number]) -------- FINAL REPORT -------- Dictated By: Johana Waters Dictated Date: 03/31/2024 11:17 ET Assigned Physician: Johana Waters Reviewed and Electronically Signed By: Johana Waters Signed Date: 03/31/2024 11:40 ET Workstation ID: [id number] Transcribed By: Self Edit Transcribed Date: 03/31/2024 11:17 ET Felicitas Macdonald MD IMG CT PROCEDURES F inal Result * Lipase (03/24/2024 10:09 AM EST) Lipase 33 13 - 75 unit/L LAB CHEMISTRY METHOD 03/24/2024 12:33 PM EST [facility] Blood Venous blood specimen / Unknown Venipuncture / Unknown 03/24/2024 10:09 AM EST 03/24/2024 10:09 AM EST Felicitas Macdonald MD LAB BLOOD ORDERABLE S Final Result [facility] [address] [place] [address], * Amylase (03/24/2024 10:09 AM EST) Amylase 38 25 - 115 unit/L LAB CHEMISTRY METHOD 03/24/2024 12:33 PM EST [facility] Blood Venous blood specimen / Unknown Venipuncture / Unknown 03/24/2024 10:09 AM EST 03/24/2024 10:09 AM EST us Subrammaryanne Macdonald MD LAB BLOOD ORDERABLE S Final Result [facility] [address] [place] [address], * Lipid panel (04/02/2023) Pathologist [facility] LDL/HDL Ratio 4 Triglycerides 117 mg/dL Cholesterol 225 mg/dL HDL 64 mg/dL LDL Cholesterol 138 mg/dL Blood Venous blood specimen / Unknown Historical Provider LAB BLOOD ORDERABLES Maye l Result * Colonoscopy (11/22/2016) Pathologist [facility] Colonoscopy Negative Anatomical Region Laterality Modality Other Historical Provider HEALTH MAINTENANCE Final Result * Hepatitis C Screening (06/08/2011) Pathologist [facility] Hepatitis C Screening Negative Historical Provider HEALTH MAINTENANCE Final Result from Last 3 Months or Most Recently Relevant to Health Maintenance Insurance MEDICARE 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 Health Care Decision (hx) 10/17/2021 [...] DIRECTIVE Health Care Decision (hx) 09/09/2018 AD MONETRO DIRECTIVE Health Care Decision (hx) 09/09/2018 AD [...] DIRECTIVE Health Care Decision (hx) 05/09/2018 AD MOTNERO DIRECTIVE Health Care Decision (hx) 05/09/2018 AD [...] DIRECTIVE Health Care Decision (hx) 05/09/2018 AD OMNTERO DIRECTIVE Health Care Decision (hx) 05/09/2018 AD [...] DIRECTIVE Health Care Decision (hx) 05/09/2018 AD MOTNERO DIRECTIVE Health Care Decision (hx) 05/09/2018 AD [...] DIRECTIVE Health Care Decision (hx) 05/09/2018 AD MONTREO DIRECTIVE Health Care Decision (hx) 05/09/2018 AD [...] (hx) 05/09/2018 AD MONTERO DIRECTIVE Care Teams Manager Of Housekeeping Relationship Specialty Start Date End Date Rolanda Avila MD [address] [place] [id number] PCP - General Internal Medicine 10/23/21
--- OUTSIDE RECORDS SUMMARY | 2024-06-09 11:17 | XMS_ITS | Encounter Summary ---
Author Organization [facility] Address [address] [place] [address] Care Team Providers Care Kai Whakaruruhau Name Role Phone Rolanda Avila MD Primary Care Prov ider Encounter Details Date Type Department Care Team (Late st Contact Info) Description 01/15/2024 9:40 AM EDT Hospital Encounter TH HISTORIC ENCOUNTERS EASTERN CONVERSION ONLY Maryjane Albert MD [address] [phone] Social History Tobacco Use Types [...] for your loved ones. For example, children's book author or elderly care for an older adult? [...] Info) Description 07/13/2024 10:00 AM EDT Appointment [facility] Interventional Radiology [address] [place] [phone] 07/22/2024 10:30 AM EDT Office Visit [facility] Hematology Oncology [address] [place] [phone] Felicitas Macdonald MD [address] [place] [phone] 11/11/2024 1:00 PM EDT Office Visit Nephrology [address] [phone] Efe Ramirez MD [address] [phone] 04/20/2025 2:00 PM EST Office Visit [facility] - [address] [phone] Rolanda Avila MD [address] [place] [phone] documented as of this encounter Procedures Procedure Name Priority Date/Time Associated Diagnosis Comments EXCH CATH NEPHROS Routine 01/15/2024 10: 42 AM EDT documented in this encounter Results * EXCH CATH NEPHROS (01/15/2024 10:42 AM EDT) Anatomical Region Laterality Modality Radiographic Sole ging 01/15/2024 9:47 AM EDT Narrative 01/15/2024 10:42 AM EDT [facility] Diagnostic Imaging Department [address] [place] [address] Patient: ??NELLY BENAVIDES ?/Age/Sex: 1950 - 73 - F Unit#: ??[id number] ? Location/Status: ??SPDIANGIO/REG CLI ? Mnemonic/Ordering Site: [...] removed over the wire. A new 8 ??Jamaican nephrostomy tube was advanced over the wire and of the tube coiled in the renal pelvis. Additional administration of contrast demonstrate appropriate positioning of the catheter. ?The loop was locked and a sterile dressing was applied. The patient tolerated the procedure well without any immediate complications. IMPRESSION: 1. ??Left-sided 8 ?? Jamaican PCN exchange. Dictating Physician: ??GALLITO BRODY MD Electronically Signed by: ??GALLITO BRODY MD Dic Date/Time: ??01/15/24 1035 Sign date/Time: ??01/15/24 1042 Procedure Note Gallito Brody MD - 01/21/2024 [facility] Diagnostic Imaging Department [address] [place] [address] Patient: NELLY BENAVIDES Mg /Age/Sex: 1950 - 73 - F Unit#: [id number] [facility] CLI Mnemonic/Ordering Site: [facility] Ordering Physician: MARYJANE ALBERT MD Exch [...] removed over the wire. A new 8 Jamaican nephrostomy tube was advanced over the wire and of thetube coiled in the renal pelvis. Additional administration of contrastdemonstrate appropriate positioning of the catheter. The loop was locked and asterile dressing was applied. The patient tolerated the procedure well without any immediatecomplications. IMPRESSION: 1. Left-sided 8 Jamaican PCN exchange. Dictating Physician: GALLITO BRODY MD Electronically Signed by: GALLITO BRODY MD Dic Date/Time: 01/15/24 1035 Sign date/Time: 01/15/24 1042 Maryjane Albert MD IMG XR PROCEDURES Final Result documented in this encounter Visit Diagnoses Not on filedocumented in this encounter Care Teams Kai Whakaruruhau Relationship Specialty Start Date End Date Rolanda Avila MD [address] [place] [phone] PCP - General Internal Medicine 10/23/21 documented as of this encounter
--- OUTSIDE RECORDS SUMMARY | 2024-06-09 11:18 | XMS_ITS | Encounter Summary ---
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 Subramonia-Felicitas Daniel MD [address] [place] [phone] Phone: tel: fax: [facility] [address] [place] [phone] Phone: tel: fax: Referral ID Status Reason Start Date Expiration Date Visits Re quested Visits Authorized [id number] Closed 02/04/2024 02/03/2025 1 24 Encounter Details Date Type Department Care Team (Latest Contact Info) Description 05/27/2024 10:30 AM EST - 05/27/2024 11:59 PM EST Hospital Encounter [facility] [address] [facility] [address] [place] [address] Felicitas Macdonald MD [address] [place] [address] Hypothyroidism due to medication (Primary [...] for your loved ones. For example, child specialist or elderly care for an older adult? [...] Info) Description 07/13/2024 10:00 AM EDT Appointment [facility] Interventional Radiology [address] [place] [address] 07/22/2024 10:30 AM EDT Office Visit [facility] Hematology Oncology [address] [place] [address] Felicitas Macdonald MD [address] [place] [address] 11/11/2024 1:00 PM EDT Office Visit Nephrology [address] [phone] Efe Ramirez MD [address] [facility] [address] [place] [address] 04/20/2025 2:00 PM EST Office Visit Adult Medicine [address] [phone] Rolanda Avila MD [address] [place] [address] documented as of this encounter Visit Diagnoses [...] documented as of this encounter Care Teams Rn Pain Management Relationship Specialty Start Date End Date Rolanda Avila MD [address] [place] [address] PCP - General Internal Medicine 10/23/21 documented as of this encounter
--- OUTSIDE RECORDS SUMMARY | 2024-06-09 11:18 | XMS_ITS | Encounter Summary ---
Author Organization [facility] Address [address] [place] [address] Care Team Providers Care Residential Green Building Designer Name Role Phone Rolanda Avila MD Primary [...] care for your loved ones. For example, childcare center administrator or elderly care for an older adult? [...] Info) Description 07/13/2024 10:00 AM EDT Appointment [facility] Interventional Radiology [address] [place] [address] 07/22/2024 10:30 AM EDT Office Visit [facility] Hematology Oncology [address] [place] [address] Stefan-Felicitas Mancuso MD [address] [place] [address] 11/11/2024 1:00 PM EDT Office Visit Nephrology [address] [phone] Efe Ramirez MD [address] [place] [address] 04/20/2025 2:00 PM EST Office Visit Adult Medicine [address] [phone] Rolanda Avila MD [address] [place] [address] documented as of this encounter Visit Diagnoses Not on filedocumented in this encounter Care Teams Residential Green Building Designer Relationship Specialty Start Date End Date Rolanda Avila MD [address] [place] [address] PCP - General Internal Medicine 10/23/21 documented as of this encounter
--- OUTSIDE RECORDS SUMMARY | 2024-06-09 11:18 | XMS_ITS | Clinical Summary ---
Author Organization [facility] Address [address] [place] [address] Care Team Providers Care Juke Box Servicer Name Role Phone Rolanda Alcala MD Primary [...] this topic Medical Devices Implanted Type Area Real Estate Broker Device Identifier Shelf Expiration Date Model / Serial / Lot Cement Bone Simplex High Viscosity 20ml 40gm 10\Pack - [id number] - [id number] Implanted:Qty: 1 on 08/19/2019 by Frank Ramesh [place] [facility] Right: Knee [employer] 05/22/2020 6194-1-010 / / [id number] Cement Bone Simplex High Viscosity 20ml 40gm 10\Pack - 701466 - [id number] Implanted:Qty: 1 on 08/19/2019 by Frank Ramesh [place] [facility] Right: Knee [employer] 05/22/2020 6194-1-010 / / [id number] Component Triathlon 3 Posterior Stabilized Cemented Femoral - 767206 - [id number] Implanted:Qty: 1 on 08/19/2019 by Frank Ramesh MD at [facility] Right: Knee [employer] [id number] 09/01/2023 5515-F-302 / / [id number] Baseplate Triathlon 3 Baskin Totl Stabilized Cocr Tibial - 465391 - [id number] Implanted:Qty: 1 on 08/19/2019 by Frank Ramesh MD at [facility] Right: Knee [employer] [id number] 10/13/2023 5521-B-300 / / [id number] Stem Triathlon 50mm 12mm Cemented Totl Stabilized Cocr - 664387 - [id number] Implanted:Qty: 1 on 08/19/2019 by Frank Ramesh MD at [facility] Right: Knee [employer] [id number] 01/28/2024 5560-S-112 / / [id number] Component Triathlon 9mm 33mm Symmetric X3 Ptlar Knee - 067798 - [id number] Implanted:Qty: 1 on 08/19/2019 by Frank Ramesh MD at [facility] Right: Knee [employer] [id number] 12/16/2023 5550-G-339 / / [id number] Plug Artisan Medium 25mm Plug Bone Cement - 997686 - [id number] Implanted:Qty: 1 on 08/19/2019 by Frank Ramesh MD at [facility] Right: Knee [employer] [id number] 02/16/2024 6215-5-011 / / [id number] Insert Triathlon 3 9mm Totl Stabilized Plus X3 Tibial Knee - 015311 - [id number] Implanted:Qty: 1 on 08/19/2019 by Frank Ramesh MD at [facility] Right: Knee [employer] [id number] 01/15/2023 5537-G-309 / / [id number] Cement Bone Simplex High Viscosity 20ml 40gm 10\Pack - 444504 - [id number] Implanted:Qty: 1 on 12/28/2019 by Frank Ramesh MD at [facility] Left: Knee [employer] [id number] 09/21/2020 6194-1-010 / / [id number] Plug Artisan Medium 25mm Plug Bone Cement - 746952 - [id number] Implanted:Qty: 1 on 12/28/2019 by Frank Ramesh MD at [facility] Left: Knee [employer] [id number] 10/21/2024 6215-5-011 / / [id number] Peg Triathlon Modular Fix Distal Femur Knee - 723629 - [id number] Implanted:Qty: 1 on 12/28/2019 by Frank Ramesh MD at [facility] Left: Knee [employer] [id number] 05/13/2024 5575-X-000 / / [id number] Component Triathlon 9mm 33mm Symmetric X3 Ptlar Knee - 063094 - [id number] Implanted:Qty: 1 on 12/28/2019 by Frank Ramesh MD at [facility] Left: Knee [employer] [id number] 11/03/2024 5550-G-339 / / [id number] Baseplate Triathlon 3 Baskin Totl Stabilized Cocr Tibial - 736307 - [id number] Implanted:Qty: 1 on 12/28/2019 by Frank Ramesh MD at [facility] Left: Knee [employer] [id number] 02/13/2024 5521-B-300 / / [id number] Component Triathlon 3 Posterior Stabilized Cemented Femoral - 440894 - [id number] Implanted:Qty: 1 on 12/28/2019 by Frank Ramesh MD at [facility] Left: Knee [employer] [id number] 11/05/2022 5515-F-301 / / [id number] Stem Triathlon 50mm 12mm Cemented Totl Stabilized Cocr - 831919 - [id number] Implanted:Qty: 1 on 12/28/2019 by Frank Ramesh MD at [facility] Left: Knee [employer] [id number] 01/04/2024 5560-S-112 / / [id number] Insert Triathlon 3 9mm Totl Stabilized Plus X3 Tibial Knee - 372583 - [id number] Implanted:Qty: 1 on 12/28/2019 by Frank Ramesh MD at [facility] Left: Knee [employer] [id number] 05/07/2023 5537-G-309 / / [id number] Cement Bone Simplex High Viscosity 20ml 40gm 10\Pack - 314420 - [id number] Implanted:Qty: 1 on 12/28/2019 by Frank Ramesh MD at [facility] Left: Knee [employer] [id number] 10/22/2020 6194-1-010 / / [id number] Advance Directives For more information, please contact: [phone] Latest Code Status on File Code Status [...] will or healthcare instructions . Care Teams Juke Box Servicer Relationship Specialty Start Date End Date Rolanda Alcala MD [address] [place] [address] PCP - General Internal Medicine 01/16/22
--- OUTSIDE RECORDS SUMMARY | 2024-06-09 11:18 | XMS_ITS ---
Author Organization [facility] Address [address] [place] [address] Care Team Providers Care Product Accountant Name Role Phone Rolanda Alcala MD Primary [...] bladder Hydronephrosis Retention, urine Current Oncology Plans [facility] BCN OP ATEZOLIZUMAB* Plan Start Date:08/02/2021 Linked [...] treatments are documented for this patient in [facility]. Treatments may have been administered in another system. Lifetime Dose Tracking * Chemical Lifetime Dose Automatic Entry Manual Entr y Radiation 55 mSv 55 mSv 0 mSv Resolved Problems Problem Noted Date Diagnosed Date Resolved Date Urinary retention 01/23/2017 01/07/2020 Gross hematuria 09/29/2020
--- OUTSIDE RECORDS SUMMARY | 2024-06-09 11:18 | XMS_ITS | Encounter Summary ---
Author Organization [facility] Address [address] [place] [address] Care Team Providers Care Pillar Worker Name Role Phone Rolanda Avila MD Primary Care Prov ider Reason for Visit * Reason Comments Follow-up Encounter Details Date Type Department Care Team (Latest Contact Info) Description 05/27/2024 10:15 AM EST Office Visit [facility] Hematology Oncology [address] [place] [phone] Felicitas Macdonald MD [address] [place] [phone] Malignant neoplasm of overlapping sites of bladder [...] for your loved ones. For example, children's minister or elderly care for an older adult? [...] his treatment, labs updated in the new [employer] system Detailed discussion with the patient and [...] I discussed with the patient and her [id number] completing her regarding the diagnosis, staging, further [...] arthritis. Some myelomalacia. I recommended contacting the pick and shovel man office, check whether a joint injection may [...] vein thrombosis (DVT) of both femoral veins ([facility]) 07/06/2019 Diastolic congestive heart failure ([facility]) 04/25/2018 Essential hypertension 06/07/2017 Protein-calorie malnutrition, moderate ([facility]) 07/08/2018 Iron deficiency anemia due to chronic blood loss 11/28/2016 Malignant neoplasm of urinary bladder ([facility]) 06/07/2017 Secondary malignant neoplasm of bone ([facility]) 11/28/2016 Thrombocythemia 07/08/2018 Hydronephrosis 08/10/2020 Gross hematuria 08/10/2020 Retention, urine 08/10/2020 Primary insomnia 02/18/2018 Acquired genu valgum of left knee 12/28/2019 Osteoarthritis of hand 12/04/2010 Rheumatoid arthritis, seropositive, multiple sites ([facility]) 03/22/2010 Abnormal CXR 09/05/2018 Pleural effusion, bilateral 04/25/2018 Primary osteoarthritis of both knees 02/17/2019 S/P total knee replacement, left 01/12/2020 Lung nodule 02/22/2020 Acute pain of left shoulder 12/05/2021 Chronic pain of both knees 02/17/2019 Healthcare-associated pneumonia 06/06/2018 Nephrostomy status ([facility]) 07/08/2018 Prediabetes 12/15/2019 Hypothyroidism due to medication 02/04/2024 Resolved Ambulatory Problems Diagnosis Date Noted No Resolved Ambulatory Problems Past Medical History: Diagnosis Date Abnormal ECG Anemia Bladder mass Cancer ([facility]) Cancer of overlapping sites of bladder ([facility]) CHF (congestive heart failure) ([facility]) Chronic venous insufficiency CKD (chronic kidney disease) Deep vein thrombosis ([facility]) 2013 Degenerative arthritis of knee, bilateral MEEK (dyspnea on exertion) History of transfusion Hypertension Hypoalbuminemia Osteoarthritis Peripheral neuropathy Pleural effusion Pneumonia Rheumatoid arthritis ([facility] Rheumatoid arthritis ([facility]) Thrombocytosis Urinary incontinence Urinary urgency SOCIAL HISTORY: [...] and removedover short Amplatz wire. New 8 Japanese nephrostomy tube advanced over the wire with [...] Signed Date: 04/15/2024 09:38 ET Workstation ID: [id number] Transcribed By: Self Edit Transcribed Date: 04/15/2024 [...] MD Cc Rolanda Martinez MD Cc urology [facility], Previously following with Dr. Lemon documented in this encounter Plan of Treatment Upcoming Encounters Date Type Department Care Team (Late st Contact Info) Description 07/13/2024 10:00 AM EDT Appointment [facility] Interventional Radiology [address] [place] [phone] 07/22/2024 10:30 AM EDT Office Visit [facility] Hematology Oncology [address] [place] [phone] Felicitas Macdonald MD [address] [place] [phone] 11/11/2024 1:00 PM EDT Office Visit Nephrology [address] [phone] Efe Ramirez MD [address] [facility] [address] [place] [address] 04/20/2025 2:00 PM EST Office Visit [facility] - [address] [phone] Rolanda Avila MD [address] [place] [address] documented as of this encounter Visit Diagnoses [...] documented as of this encounter Care Teams Pillar Worker Relationship Specialty Start Date End Date Rolanda Avila MD [address] [place] [phone] PCP - General Internal Medicine 10/23/21 documented as of this encounter
== END 2024-06-09 08:46 | disposition home or self-care (01) ==
LOC: HO.HMGCX 08:45
PROVIDERS: Visit Provider Internal Medicine Rheumatology
DX: M25.512 Pain in left shoulder (principal); M05.79 Rheumatoid arthritis with rheumatoid factor of multiple sites without organ or systems involvement; Z79.899 Other long term (current) drug therapy
CPT/HCPCS: 73030; 99212

== ENCOUNTER → 2024-06-09 10:02 | Outpatient (BNV) | payer MEDICARE, OTHER, SELFPAY | PROVIDERS: Visit Provider Radiology Diagnostic Radiology | DX: M12.812 Other specific arthropathies, not elsewhere classified, left shoulder (principal); M89.512 Osteolysis, left shoulder | CPT/HCPCS: 73030 ==

== ENCOUNTER 2024-09-09 09:41 | Outpatient (AMB) | payer MEDICARE, OTHER, SELFPAY ==
[2024-09-09 09:53] VITALS: BP 120/70; PULSE 104; O2SAT 93; BMI 18.4
--- NOTE | 2024-09-09 09:53 | A.OFFVIS_ITS ---
Vital Signs 09/09/24 09:53 Height 5 ft 4 in Weight 107 lb BMI 18.4 BP 120/70 Blood Pressure Location Rt brachial Position Sitting Pulse 104 H Pulse Source Pulse Oximeter Pulse Oximetry (%) 93 Oxygen Delivery Method Room Air Intake Visit Reasons: 3 months Intake Note: Patient presents for follow up on RA today. Accompanied by: Self / Same As Patient Allergies Penicillins Allergy (Mild, Verified 06/09/24 08:50) Itchiness HPI HPI 3 months: Details: Pain overall has improved. Morning stiffness is hours. She continues to have intermittent left shoulder pain. Physical Exam Vital Signs: Last Vital Signs Pulse 104 H 09/09/24 09:53 BP 120/70 09/09/24 09:53 Pulse Ox 93 09/09/24 09:53 Oxygen Delivery Method Room Air 09/09/24 09:53 BMI result Body Mass Index 18.4 Const Other: General: Comfortable CVS: RRR Respiratory: clear to auscultation bilaterally. 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 She has ulnar deviations of her MCPs. Left dorsal wrist ganglion cyst present without pain on palpation. Right shoulder abduction 90 degrees with left shoulder abduction 70 degrees with pain. She has internal external rotation of bilateral shoulders. Examined while patient is sitting in wheelchair seat. No synovitis of lower extremities. No MTP tenderness Assessment & Plan Assessment & Plan (1) Rheumatoid arthritis: Comment: Inflammatory arthritis has improved with course of prednisone. She continues to have left shoulder intermittent pain. We discussed trying another course of prednisone for further relief, which patient agrees to. Left shoulder x-ray reveals erosive inflammatory arthritis radiographically. Rheumatology history: Seropositive, deforming, erosive. On Leflunomide 04/13/2023 to present, sulfasalazine March 2023 to present. Monitoring closely while patient is being treated for metastatic bladder cancer on immunotherapy Atezolizumab PD-L1 inhibitor, recently on hold. Code(s): M06.9 - Rheumatoid arthritis, unspecified Category: Medical Qualifiers: Rheumatoid arthritis location: multiple sites Rheumatoid factor presence: with rheumatoid factor Qualified Code(s): M05.79 - Rheumatoid arthritis with rheumatoid factor of multiple sites without organ or systems involvement Plan: Prednisone course ordered Continue leflunomide 20 mg daily Increase sulfasalazine 1000 mg b.i.d. Labs for drug monitoring on high-risk medication due today Return to clinic in 3 months (2) Other termite treater helper (current) drug therapy: Code(s): Z79.899 - Other snf (current) drug therapy Category: Medical Plan: See above Orders: Orders Alanine Aminotransferase Today M05.79 - Rheumatoid arthritis with rheumatoid factor of multiple sites without organ or systems involvement, Z79.899 - Other termite treater helper (current) drug therapy Aspartate Amino Transferase Today M05.79 - Rheumatoid arthritis with rheumatoid factor of multiple sites without organ or systems involvement, Z79.899 - Other termite treater helper (current) drug therapy Erythrocyte Sedimentation Rate Today M05.79 - Rheumatoid arthritis with rheumatoid factor of multiple sites without organ or systems involvement, Z79.899 - Other snf (current) drug therapy Complete Blood Count Man Dif 3 Months M05.79 - Rheumatoid arthritis with rheumatoid factor of multiple sites without organ or systems involvement, Z79.899 - Other snf (current) drug therapy Alanine Aminotransferase 12/10/24 M05.79 - Rheumatoid arthritis with rheumatoid factor of multiple sites without organ or systems involvement, Z79.899 - Other snf (current) drug therapy Erythrocyte Sedimentation Rate 03/10/25 M05.79 - Rheumatoid arthritis with rheumatoid factor of multiple sites without organ or systems involvement, Z79.899 - Other snf (current) drug therapy Erythrocyte Sedimentation Rate 06/08/25 M05.79 - Rheumatoid arthritis with rheumatoid factor of multiple sites without organ or systems involvement, Z79.899 - Other snf (current) drug therapy Erythrocyte Sedimentation Rate 09/06/25 M05.79 - Rheumatoid arthritis with rheumatoid factor of multiple sites without organ or systems involvement, Z79.899 - Other snf (current) drug therapy Complete Blood Count Man Dif 12/10/24 M05.79 - Rheumatoid arthritis with rheumatoid factor of multiple sites without organ or systems involvement, Z79.899 - Other snf (current) drug therapy Complete Blood Count Man Dif 06/08/25 M05.79 - Rheumatoid arthritis with rheumatoid factor of multiple sites without organ or systems involvement, Z79.899 - Other termite treater helper (current) drug therapy Complete Blood Count Man Dif 09/06/25 M05.79 - Rheumatoid arthritis with rheumatoid factor of multiple sites without organ or systems involvement, Z79.899 - Other termite treater helper (current) drug therapy Alanine Aminotransferase 03/10/25 M05.79 - Rheumatoid arthritis with rheumatoid factor of multiple sites without organ or systems involvement, Z79.899 - Other snf (current) drug therapy Alanine Aminotransferase 06/08/25 M05.79 - Rheumatoid arthritis with rheumatoid factor of multiple sites without organ or systems involvement, Z79.899 - Other termite treater helper (current) drug therapy Alanine Aminotransferase 09/06/25 M05.79 - Rheumatoid arthritis with rheumatoid factor of multiple sites without organ or systems involvement, Z79.899 - Other termite treater helper (current) drug therapy Aspartate Amino Transferase 12/10/24 M05.79 - Rheumatoid arthritis with rheumatoid factor of multiple sites without organ or systems involvement, Z79.899 - Other termite treater helper (current) drug therapy Aspartate Amino Transferase 06/08/25 M05.79 - Rheumatoid arthritis with rheumatoid factor of multiple sites without organ or systems involvement, Z79.899 - Other snf (current) drug therapy Creatinine 09/06/25 M05.79 - Rheumatoid arthritis with rheumatoid factor of multiple sites without organ or systems involvement, Z79.899 - Other termite treater helper (current) drug therapy C Reactive Protein 12/10/24 M05.79 - Rheumatoid arthritis with rheumatoid factor of multiple sites without organ or systems involvement, Z79.899 - Other termite treater helper (current) drug therapy Complete Blood Count Man Dif Today M05.79 - Rheumatoid arthritis with rheumatoid factor of multiple sites without organ or systems involvement, Z79.899 - Other snf (current) drug therapy Creatinine Today M05.79 - Rheumatoid arthritis with rheumatoid factor of multiple sites without organ or systems involvement, Z79.899 - Other termite treater helper (current) drug therapy C Reactive Protein Today M05.79 - Rheumatoid arthritis with rheumatoid factor of multiple sites without organ or systems involvement, Z79.899 - Other termite treater helper (current) drug therapy Alanine Aminotransferase 3 Months M05.79 - Rheumatoid arthritis with rheumatoid factor of multiple sites without organ or systems involvement, Z79.899 - Other termite treater helper (current) drug therapy Aspartate Amino Transferase 3 Months M05.79 - Rheumatoid arthritis with rheumatoid factor of multiple sites without organ or systems involvement, Z79.899 - Other termite treater helper (current) drug therapy Creatinine 3 Months M05.79 - Rheumatoid arthritis with rheumatoid factor of multiple sites without organ or systems involvement, Z79.899 - Other snf (current) drug therapy C Reactive Protein 3 Months M05.79 - Rheumatoid arthritis with rheumatoid factor of multiple sites without organ or systems involvement, Z79.899 - Other snf (current) drug therapy Erythrocyte Sedimentation Rate 3 Months M05.79 - Rheumatoid arthritis with rheumatoid factor of multiple sites without organ or systems involvement, Z79.899 - Other snf (current) drug therapy Erythrocyte Sedimentation Rate 12/10/24 M05.79 - Rheumatoid arthritis with rheumatoid factor of multiple sites without organ or systems involvement, Z79.899 - Other termite treater helper (current) drug therapy Complete Blood Count Man Dif 03/10/25 M05.79 - Rheumatoid arthritis with rheumatoid factor of multiple sites without organ or systems involvement, Z79.899 - Other termite treater helper (current) drug therapy Aspartate Amino Transferase 03/10/25 M05.79 - Rheumatoid arthritis with rheumatoid factor of multiple sites without organ or systems involvement, Z79.899 - Other snf (current) drug therapy Aspartate Amino Transferase 09/06/25 M05.79 - Rheumatoid arthritis with rheumatoid factor of multiple sites without organ or systems involvement, Z79.899 - Other termite treater helper (current) drug therapy Creatinine 12/10/24 M05.79 - Rheumatoid arthritis with rheumatoid factor of multiple sites without organ or systems involvement, Z79.899 - Other termite treater helper (current) drug therapy Creatinine 03/10/25 M05.79 - Rheumatoid arthritis with rheumatoid factor of multiple sites without organ or systems involvement, Z79.899 - Other termite treater helper (current) drug therapy Creatinine 06/08/25 M05.79 - Rheumatoid arthritis with rheumatoid factor of multiple sites without organ or systems involvement, Z79.899 - Other snf (current) drug therapy C Reactive Protein 03/10/25 M05.79 - Rheumatoid arthritis with rheumatoid factor of multiple sites without organ or systems involvement, Z79.899 - Other snf (current) drug therapy C Reactive Protein 06/08/25 M05.79 - Rheumatoid arthritis with rheumatoid factor of multiple sites without organ or systems involvement, Z79.899 - Other snf (current) drug therapy C Reactive Protein 09/06/25 M05.79 - Rheumatoid arthritis with rheumatoid factor of multiple sites without organ or systems involvement, Z79.899 - Other snf (current) drug therapy Medications: Changed From sulfasalazine 0.5 grams PO BID 180 tabs 0RF To sulfasalazine 1 g (2 x 500 mg) PO BID 360 tabs 0RF 90 days Refilled prednisone Take 3 tablets daily 3 days, 2 tablets daily 3 days, 1 tablets daily 3 days then stop. 5 mg PO DIRECTED 18 tabs 0RF Coding Level of Care Code Est Pt Level 4 (09107) Complex EM visit Add On G2211 Diagnoses Rheumatoid arthritis involving multiple sites with positive rheumatoid factor M05.79 Rheumatoid arthritis location: multiple sites Rheumatoid factor presence: with rheumatoid factor Other snf (current) drug therapy Z79.899
--- OUTSIDE RECORDS SUMMARY | 2024-09-09 10:43 | XMS_ITS | Patient Health Record ---
Author Organization [facility] Address [address] [place] [address] Care Team Providers Care Library Clerical Assistant Name Role Phone Rolanda King Primary Care Provider Toby gardiner Lolita Altman Unavailable [phone] Allergies Allergen (clinical drug ingredient) Drug/Non Drug [...] Duration) Notes Start Date End Date Status Doxycycline Hyclate 100 MG 1 capsule Ora lly Once a day for 10 day(s) Not-Taking Acetaminophen Extra Strength 500 MG 2 tablet as needed Orally every 6 hrs for 14 days 10/11/2022 Active oxyCODONE HCl 5 MG 1 tablet as needed Orally every 6 hrs Active Metoprolol Succinate ER 25 MG 1 tablet Orally Once a day for 30 day(s) Active Eliquis 5 MG as directed Orally Active Furosemide 20 MG 1 tablet Orally Once a day for 30 day(s) Active Neuriva Not-Taking Doxycycline Hyclate 100 MG 1 capsule Ora lly Once a day for 10 day(s) 07/17/2021 Not-Taking oxyBUTYnin Not-Takin g Clindamycin HCl 300 MG 1 capsule Orally every 6 hrs for 10 day(s) 11/05/2022 Not-Taking levoFLOXacin 500 MG 1 tablet Orally Once a day for 10 day(s) 12/03/2022 Not-Taking Immunizations Vaccine Route Administration Date Status Comme nts COVID-19 Pfizer BioNTech Vaccine Unknown 01/09/2021 Administered 1ST DOSE: 12/19/2020 2ND DOSE: 01/09/2021 Social History Tobacco Use: Social History Observation Description Date Details (start date - stop date) Never Smoker NA - NA Alcohol Screen Question Answer Notes Did you have a drink containing alcohol in the p ast year? No Points 0 Interpretation Negative Tobacco use other than smoking: Question Answer Notes Are you an other tobacco user? No Tobacco Control (Standard) Question Answer Notes Tobacco use: Nonsmoker Problems Problem Type SNOMED Code ICD Code Onset Dates Problem Status W/U Status Risk Notes Problem Tinea unguium (575714627) Tinea unguium (B35.1) Active confirmed Problem Ulcer of foot (87140444) Ulcer of left foot, limited to breakdown of skin (L97.521) Active confirmed Vital Signs Blood pressure diastolic 80 mm Hg 07/30/2024 Height 5ft3in in 07/30/2024 Blood pressure systolic 128 mm Hg 07/30/2024 Weight 107 lbs 07/30/2024 BMI 18.95 kg/m2 07/30/2024 Procedures Procedure Date Ordered Date Performed Result Body Sit e 09470-GIGSREA NAIL, OR MORE 12/12/2023 N/A 48371-SXCXBAV SKIN/TISSUE 12/12/2023 N/A 64853-GOJBWYT SKIN/TISSUE 01/02/2024 N/A 91296-WOERLIE NAIL, 6 OR MORE 04/02/2024 N/A 40115-VKHNNKU SKIN/TISSUE 04/02/2024 N/A 06162-EUSXNLO NAIL, OR MORE 07/30/2024 N/A 20166- Debride <25 sq cm 07/30/2024 N/A Encounters Encounter Location Date Provider Diagnosis [facility] [address] [place] [address] 12/12/2023 Lolita Black Tinea unguium B35.1 ; [...] foot without organ or systems involvement M05.[address] [address] 01/02/2024 Lolita Black Cellulitis of foot, left L03.116 ; Cellulitis of right foot L03.115 ; Ulcer of left foot with fat layer exposed L97.522 and Cutaneous abscess of right foot L02.[address] [address] 01/20/2024 Lolita Black Cellulitis of right foot L03.115 ; Ulcer of left foot, limited to breakdown of skin L97.521 and Ulcer of right foot with fat layer exposed L97.[address] [address] 04/02/2024 Lolita Black Tinea unguium B35.1 ; Ulcer of left foot with fat layer exposed L97.522 ; Pain in left toe(s) M79.675 ; Pain in right toe(s) M79.674 and Pain in left foot M79.[address] [address] 07/30/2024 Lolita Black Tinea unguium B35.1 ; Ulcer of left foot, limited to breakdown of skin L97.521 ; Pain in left toe(s) M79.675 ; Pain in right toe(s) M79.674 and Pain in left foot M79.[address] [address] 01/02/2024 Lolita Black [address] [address] 01/02/2024 Lolita Black Assessments Encounter Date Diagnosis (ICD Code) Assessment Notes Treatment Notes Treatment Clinical Notes Section Notes 12/12/2023 Tinea unguium (ICD-10 - B35.1) 12/12/2023 [...] CARE INSTRUCTIONS. pdf (WOUND CARE INSTRUCTIONS. pdf) 07/30/2024 Tinea unguium (ICD-10 - B35.1) 07/30/2024 Ulcer of left foot, limited to breakdown of skin (ICD-10 - L97.521) Patient Educated with: WOUND CARE INSTRUCTIONS. pdf (WOUND CARE INSTRUCTIONS. pdf) 07/30/2024 Pain in left toe(s) (ICD-10 - M79.675) 04/02/2024 Pain in left toe(s) (ICD-10 - [...] Pain in right toe(s) (ICD-10 - M79.674) 12/12/2023 Cellulitis of foot, left (ICD-10 - L03.116) 04/02/2024 Pain in right toe(s) (ICD-10 - M79.674) 07/30/2024 Pain in right toe(s) (ICD-10 - M79.674) 01/02/2024 Cutaneous abscess of right foot (ICD-10 - L02.611) 12/12/2023 Ulcer of left foot with fat layer exposed (ICD-10 - L97.522) Patient Educated with: WOUND CARE INSTRUCTIONS. pdf (WOUND CARE INSTRUCTIONS. pdf) 07/30/2024 Pain in left foot (ICD-10 - M79.672) 04/02/2024 Pain in left foot (ICD-10 - M79.672) 12/12/2023 Pain in left foot (ICD-10 - M79.672) 12/12/2023 PlantarFlexion of metatarsal of left foot (ICD-10 - M21.6X2) 12/12/2023 Rheumatoid arthritis with rheumatoid factor of right ankle and foot without organ or systems involvement (ICD-10 - M05.771) 12/12/2023 Other 01/20/2024 Other 07/30/2024 Other Plan Of Treatment Pending Test Test Name Order Date *Wound Culture 11/19/2022 62399-JIRAHIK NAIL, 6 OR MORE 09/10/2022 74776-MTLDVDA NAIL, 6 OR MORE 06/21/2022 16682-PZPRCSF NAIL, 6 OR MORE 10/09/2021 02239-KILMXKI NAIL, 6 OR MORE 12/11/2021 43895-FKDPNWQ NAIL, 6 OR MORE 02/12/2022 01291-TZTVKSW NAIL, 6 OR MORE 10/12/2019 60134-MRNDWIT NAIL, 6 OR MORE 12/21/2019 45130-OZEFBKI NAIL, 6 OR MORE 06/30/2020 65319-XTBUSAY NAIL, 6 OR MORE 10/03/2020 89644-WGIHLUJ NAIL, 6 OR MORE 01/09/2021 09459-IDTONDF NAIL, 6 OR MORE 03/23/2021 46760-MBJVEPU NAIL, 6 OR MORE 06/29/2021 07220-OJNAYYF NAIL, 6 OR MORE 12/24/2022 39149-OGUZANS NAIL, 6 OR MORE 05/06/2023 99047-YGJEUXV NAIL, 6 OR MORE 08/08/2023 38367-VRTTIIV NAIL, 6 OR MORE 12/12/2023 37255-YNAJCBC NAIL, 6 OR MORE 04/02/2024 48550-BKLFPDU NAIL, 6 OR MORE 07/30/2024 02014-Rutnaygt Plate 10/03/2020 53576- Debride <25 sq cm 10/03/2020 67314- Debride <25 sq cm 06/30/2020 64611- Debride <25 sq cm 11/09/2019 89409- Debride <25 sq cm 03/23/2021 94570- Debride <25 sq cm 01/09/2021 14277- Debride <25 sq cm 02/12/2022 50244- Debride <25 sq cm 12/11/2021 78168- Debride <25 sq cm 08/07/2021 68459- Debride <25 sq cm 10/09/2021 19272- Debride <25 sq cm 09/10/2022 03834- Debride <25 sq cm 10/12/2019 22239- Debride <25 sq cm 06/21/2022 83526- Debride <25 sq cm 10/11/2022 97754- Debride <25 sq cm 12/24/2022 37545- Debride <25 sq cm 07/30/2024 21110- Debride <25 sq cm 08/08/2023 73105- Debride <25 sq cm 05/06/2023 07726-QCYPPDW SKIN/TISSUE 01/02/2024 17003-ZZXMOGI SKIN/TISSUE 04/02/2024 44940-SUEFRNM SKIN/TISSUE 12/12/2023 24844 I&D ABSCESS- SIMPLE,SINGLE 022 51429 I&D ABSCESS- SIMPLE,SINGLE 022 88637 I&D ABSCESS- SIMPLE,SINGLE 022 90384 I&D ABSCESS- SIMPLE,SINGLE 021 17280, I1556-KHDCL/INJECT, JOINT/BURSA 1 04/14/2021 Next Appt Details Provider Name:Lolita A Agapito , 12/07/2024 09:30:00 AM, [address] [facility], [place], [address], Insurance Providers Payer Name Payer Address Payer Phone Subscriber Number Group Number Insured Name Patient Relationship to Insured Coverage Start Date Coverage End Date Medicare National [employer] [address] [place] [address] [phone] [id number] Nelly Benavides Self - patient is the insured [facility] [address] [place] [address] [id number] Nelly Benavides Self - patient is the insured Medical (General) History Medical History History ICD Code Arthritis Back,Hip,and Knee pain Cancer High blood pressure Kidney disease Measles Mumps Chicken pox Transfusions Other hammer toe(s) (acquired), left alec t M20.42 Other hammer toe(s) (acquired), right fo ot M20.41 Hallux valgus (acquired), left foot M20. 12 Hallux valgus (acquired), right foot M20 .11 PlantarFlexion of metatarsal of right fo ot M21.6X1 Rheumatoid arthritis with rh eumatoid factor of right ankle and foot without organ or systems involvement M05.771 Surgical History Surgery Date(Month/Year) knee replacement 08/19/2019 left knee replacement 01/11 Excision 4th Met Head Left Foot 10/31/22
== END 2024-09-09 10:54 | disposition home or self-care (01) ==
LOC: HO.RHES 09:42
PROVIDERS: Visit Provider Internal Medicine Rheumatology
DX: M05.79 Rheumatoid arthritis with rheumatoid factor of multiple sites without organ or systems involvement (principal); Z79.899 Other long term (current) drug therapy
CPT/HCPCS: 99214; G2211

== ENCOUNTER 2024-09-09 09:41 | Outpatient (REF) | payer MEDICARE, OTHER, SELFPAY ==
[2024-09-09 18:19] LABS: Alanine Aminotransferase 9 U/L (0-31); Aspartate Amino Transferase 28 U/L (5-31); Baso%MD 0.8 %; Estimated Glomerular Filt Rate 28; Hematocrit 34.9 % (37.0-47.0); Hemoglobin 10.6 g/dl (12.0-16.0); IG%MD 0.3 %; Lymph%MD 16.1 %; Mean Corpuscular HGB Conc 30.4 g/dl (31.0-35.0); Mean Corpuscular Hemoglobin 25.8 pg (27.0-33.0); Mean Corpuscular Volume 84.9 fL (80.0-98.0); Mean Platelet Volume 9.8 fL (9.4-12.3); Mono%MD 11.5 %; Neut%MD 71.3 %; Platelet Count 453 X10*3/uL (160-400); Red Blood Count 4.11 X10*6/uL (4.20-5.50); Red Cell Distribution Width 17.5 % (11.0-16.0); White Blood Count 6.4 X10*3/uL (4.8-10.8)
[2024-09-09 19:00] LABS: Erythrocyte Sedimentation Rate 23 MM/HR (0-20)
[2024-09-09 19:06] LABS: Band Neutrophils Percent 2 % (3-5); Basophils Abs Manual 0.1 X10*3/uL (0.0-0.2); Basophils Percent Manual 2 % (0-2); Lymphocytes Absolute Manual 0.9 X10*3/uL (1.2-4.9); Lymphocytes Percent Manual 14 % (20-40); Monocytes Absolute Manual 0.4 X10*3/uL (0.1-1.2); Monocytes Percent Manual 7 % (2-11); Neutrophils Absolute Manual 4.9 X10*3/uL (2.0-8.3); Neutrophils Percent Manual 75 % (45-73)
[2024-09-09 19:07] LABS: Acanthocytes 1+ (0-2) /OIF; RBC Morphology NOTED
[2024-09-09 19:08] LABS: Burr Cells 1+ (0-2) /OIF; Platelet Estimate NORMAL (NORMAL); Platelet Morphology Comment NORMAL
== END 2024-09-09 09:42 | disposition home or self-care (01) ==
LOC: HO.HKASLDS 09:41
PROVIDERS: Visit Provider Internal Medicine Rheumatology
DX: M05.79 Rheumatoid arthritis with rheumatoid factor of multiple sites without organ or systems involvement (principal); Z79.899 Other long term (current) drug therapy
CPT/HCPCS: 36415; 82565; 84450; 84460; 85007; 85027; 85652; 86140; 99212

== ENCOUNTER 2024-12-16 10:01 | Outpatient (AMB) | payer MEDICARE, OTHER, SELFPAY ==
--- NOTE | 2024-12-16 10:02 | A.OFFVIS_ITS ---
Vital Signs 12/16/24 10:04 Height 5 ft 4 in Weight 106 lb 4.205 oz BMI 18.2 BP 122/70 Blood Pressure Location Rt brachial Position Sitting Pulse 113 H Pulse Source Pulse Oximeter Pulse Oximetry (%) 97 Oxygen Delivery Method Room Air Intake Visit Reasons: 3 Months Intake Note: Patient presents for follow up on RA today. Accompanied by: Self / Same As Patient Allergies Penicillins Allergy (Mild, Verified 12/16/24 10:03) Itchiness HPI HPI 3 Months: Details: She had benefit with prednisone course. Some morning she is able to abduct her shoulder high. She denies any new joint swelling. No recent infections. She is tolerating higher doses Sulfasalazine. Physical Exam Vital Signs: Last Vital Signs Pulse 113 H 12/16/24 10:04 BP 122/70 12/16/24 10:04 Pulse Ox 97 12/16/24 10:04 Oxygen Delivery Method Room Air 12/16/24 10:04 BMI result Body Mass Index 18.2 Const Other: General: Comfortable CVS: RRR Respiratory: clear to auscultation bilaterally. 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 She has ulnar deviations of her MCPs. She has a rheumatoid nodule on 4th MCP. Bilateral shoulder a bduction 90 degrees. She has internal external rotation of bilateral shoulders. Examined while patient is sitting in wheelchair seat. No synovitis of lower extremities. No MTP tenderness Assessment & Plan Assessment & Plan (1) Rheumatoid arthritis: Comment: Inflammatory arthritis is controlled on current regimen. Rheumatology history: Seropositive, deforming, erosive. On Leflunomide 04/13/2023 to present, sulfasalazine March 2023 to present. Left shoulder x- ray reveals erosive inflammatory arthritis radiographically. Monitoring closely while patient is being treated for metastatic bladder cancer on immunotherapy Atezolizumab PD-L1 inhibitor, recently on hold. Code(s): M06.9 - Rheumatoid arthritis, unspecified Category: Medical Qualifiers: Rheumatoid arthritis location: multiple sites Rheumatoid factor presence: with rheumatoid factor Qualified Code(s): M05.79 - Rheumatoid arthritis with rheumatoid factor of multiple sites without organ or systems involvement Plan: Continue leflunomide 20 mg daily Continue sulfasalazine 1000 mg b.i.d. Labs for drug monitoring on high-risk medication due today. She will be getting labs within the week at [facility] for both myself and her oncologist. 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 therapy: Code(s): Z79.899 - Other termite control representative (current) drug therapy Category: Medical Plan: See above Orders: Orders Complete Blood Count Auto Diff Today Z79.899 - Other termite control representative (current) drug therapy Medications: Refilled leflunomide 20 mg PO DAILY 90 tabs 0RF sulfasalazine 1 g (2 x 500 mg) PO BID 360 tabs 0RF 90 days Coding Level of Care Code Est Pt Level 4 (39277) Complex EM visit Add On G2211 Diagnoses Rheumatoid arthritis involving multiple sites with positive rheumatoid factor M05.79 Rheumatoid arthritis location: multiple sites Rheumatoid factor presence: with rheumatoid factor Other custodial (current) drug therapy Z79.899
[2024-12-16 10:04] VITALS: BP 122/70; PULSE 113; O2SAT 97; BMI 18.2
--- OUTSIDE RECORDS SUMMARY | 2024-12-16 12:15 | XMS_ITS ---
Author Name [facility] Organization Unknown Care Team Organization Name Specialty Phone Email Start Date End Da te [facility] 11/11/2024 [facility] Rolanda Alcala Primary Care 11/29/2022 11/11/2023 [facility] Jovana Rivera Primary Care 05/30/20222023 [facility] SOY Abraham Primary Care 01/30/202210/23
--- OUTSIDE RECORDS SUMMARY | 2024-12-16 12:15 | XMS_ITS ---
Author Organization [facility] Address [address] [place] [address] Care Team Providers Care Mushroom Laborer Name Role Phone Rolanda Alcala MD Primary [...] bladder Hydronephrosis Retention, urine Current Oncology Plans [facility] ATEZOLIZUMAB* Plan Start Date:08/02/2021 Linked [...] treatments are documented for this patient in [facility]. Treatments may have been administered in another system. Lifetime Dose Tracking * Chemical Lifetime Dose Automatic Entry Manual Entr y Radiation 55 mSv 55 mSv 0 mSv Resolved Problems Problem Noted Date Diagnosed Date Resolved Date Urinary retention 01/23/2017 01/07/2020 Gross hematuria 09/29/2020
--- OUTSIDE RECORDS SUMMARY | 2024-12-16 12:15 | XMS_ITS | Encounter Summary ---
Author Organization [facility] Address [address] [place] [address] Care Team Providers Care Floral Manager Name Role Phone Rolanda Alcala MD Primary Care Prov ider Encounter Details Date Type Department Care Team Description 01/08/2023 Social Work [facility] [address] [place] [address] [facility] Social History Tobacco Use Types [...] on filedocumented in this encounter Care Teams Floral Manager Relationship Specialty Start Date End Date Rolanda Alcala MD [address] [place] [address] PCP - General Internal Medicine 10/25/22 documented as of this encounter
--- OUTSIDE RECORDS SUMMARY | 2024-12-16 12:15 | XMS_ITS | Patient Health Record ---
[facility] Organization [facility] Address [address] [facility] [place] [address] Care Team Providers Care Piece Meat Trimmer Name Role Phone Rolanda King Primary Care Provider Toby AltmanLolita Unavailable [phone] Allergies Allergen (clinical drug ingredient) Drug/Non Drug Allergy documented on EMR Reaction Allergy Type Onset Date Status amoxicillin Amoxicillin Unknown Drug Allergy Act ady doxycycline Doxycycline Hyclate diarrhea Drug Allergy Active Penicillin Unknown Drug Allergy Active Reason For Referral No Information Medications Medication SIG (Take, Route, Frequency, Duration) Notes Start Date End Date Status Clindamycin HCl 300 MG 1 capsule Orally every 6 hrs; Duration: 10 day(s) 11/05/2022 Not-Taking Doxycycline Hyclate 100 MG 1 capsule Ora lly Once a day; Duration: 10 day(s) 07/17/2021 Not-Taking oxyBUTYnin Not-Takin g Furosemide 20 MG 1 tablet Orally Once a day; Duration: 30 day(s) Active Neuriva Not-Taking Metoprolol Succinate ER 25 MG 1 tablet Orally Once a day; Duration: 30 day(s) Active Eliquis 5 MG as directed Orally Active Acetaminophen Extra Strength 500 MG 2 tablet as needed Orally every 6 hrs; Duration: 14 days 10/11/2022 Active oxyCODONE HCl 5 MG 1 tablet as needed Orally every 6 hrs Active levoFLOXacin 500 MG 1 tablet Orally Once a day; Duration: 10 day(s) 12/03/2022 Not-Taking Doxycycline Hyclate 100 MG 1 capsule Ora lly Once a day; Duration: 10 day(s) Not-Taking Immunizations Vaccine Route Administration Date Status [...] (Standard) Question Answer Notes Tobacco use: Nonsmoker Additional Findings: Tobacco non-user Current no nsmoker AUDIT-C (Standard) Question Answer Notes Did you have a drink contain ing alcohol in the past year? Yes How often did you have a dri nk containing alcohol in the past year? Monthly or less (1 point) How many drinks did you have on a typical day when you were drinking in the past year? 1 or 2 drinks (0 point) How often did you have six o r more drinks on one occasion in the past year? Never (0 point) Points 1 Interpretation Negative Problems Problem Type SNOMED Code ICD Code Onset Dates Problem Status W/U Status Risk Notes Problem Tinea unguium (814128671) Tinea unguium (B35.1) Active confirmed Problem Ulcer of left foot (disorder) (182030717) Ulcer of left foot, limited to breakdown of skin (L97.521) Active confirmed Vital Signs Blood pressure diastolic 80 mm Hg 12/07/2024 Height 5ft 3in in 12/07/2024 Blood pressure systolic 120 mm Hg 12/07/2024 Weight 107 lbs 12/07/2024 BMI 18.95 kg/m2 12/07/2024 Procedures Procedure Date Ordered Date Performed Result Body Sit e 14356-FMFUTZQ SKIN/TISSUE 01/02/2024 N/A 25626-GWWKFVO NAIL, 6 OR MORE 04/02/2024 N/A 11818-UXPVJQJ SKIN/TISSUE 04/02/2024 N/A 92570-PWHIWMT NAIL, 6 OR MORE 07/30/2024 N/A 30492- Debride <25 sq cm 07/30/2024 N/A 11487-WRVOUVG NAIL, 6 OR MORE 12/07/2024 N/A 60008- Debride <25 sq cm 12/07/2024 N/A Encounters Encounter Location Date Provider Diagnosis [facility] [address] [place] [address] 01/02/2024 Lolita Black Cellulitis of foot, left L03.116 ; Cellulitis of right foot L03.115 ; Ulcer of left foot with fat layer exposed L97.522 and Cutaneous abscess of right foot L02.[address] [address] 01/20/2024 Lolita Black Cellulitis of right foot L03.115 ; Ulcer of left foot, limited to breakdown of skin L97.521 and Ulcer of right foot with fat layer exposed L97.[address] [address] 04/02/2024 Lolita Black Tinea unguium B35.1 ; Ulcer of left foot with fat layer exposed L97.522 ; Pain in left toe(s) M79.675 ; Pain in right toe(s) M79.674 and Pain in left foot M79.[address] [address] 07/30/2024 Lolita Black Tinea unguium B35.1 ; Ulcer of left foot, limited to breakdown of skin L97.521 ; Pain in left toe(s) M79.675 ; Pain in right toe(s) M79.674 and Pain in left foot M79.[address] [address] 12/07/2024 Lolita Black Tinea unguium B35.1 ; Ulcer of left foot, limited to breakdown of skin L97.521 ; Pain in left toe(s) M79.675 ; Pain in right toe(s) M79.674 and Pain in left foot M79.[address] [address] 01/02/2024 Lolita Black [address] [address] 01/02/2024 Lolita Black Assessments Encounter Date Diagnosis (ICD Code) Assessment Notes Treatment Notes Treatment Clinical Notes Section Notes 01/02/2024 Cellulitis of right foot (ICD-10 - L03.115) 01/02/2024 Cellulitis of foot, left (ICD-10 - L03.116) Response to treatment,Resolv ed 01/20/2024 Cellulitis of right foot (ICD-10 - L03.115) Response to treatment - Improvement 01/20/2024 Ulcer of left foot, limited to breakdown of skin (ICD-10 - L97.521) Patient Educated with: WOUND CARE INSTRUCTIONS.p df (WOUND CARE INSTRUCTIONS.p df) 04/02/2024 Tinea unguium (ICD-10 - B35.1) 04/02/2024 Ulcer of left foot with fat layer exposed (ICD-10 - L97.522) Patient Educated with: WOUND CARE INSTRUCTIONS.p df (WOUND CARE INSTRUCTIONS.p df) 07/30/2024 Tinea unguium (ICD-10 - B35.1) 07/30/2024 Ulcer of left foot, limited to breakdown of skin (ICD-10 - L97.521) Patient Educated with: WOUND CARE INSTRUCTIONS.p df (WOUND CARE INSTRUCTIONS.p df) 12/07/2024 Tinea unguium (ICD-10 - B35.1) 12/07/2024 Ulcer of left foot, limited to breakdown of skin (ICD-10 - L97.521) Patient Educated with: WOUND CARE INSTRUCTIONS.p df (WOUND CARE INSTRUCTIONS.p df) 07/30/2024 Pain in left toe(s) (ICD-10 - [...] (WOUND CARE INSTRUCTIONS.p df) 04/02/2024 Pain in right toe(s) (ICD-10 - M79.674) 07/30/2024 Pain in right toe(s) (ICD-10 - M79.674) 01/02/2024 Cutaneous abscess of right foot (ICD-10 - L02.611) 12/07/2024 Pain in left toe(s) (ICD-10 - M79.675) 12/07/2024 Pain in right toe(s) (ICD-10 - M79.674) 07/30/2024 Pain in left foot (ICD-10 - M79.672) 04/02/2024 Pain in left foot (ICD-10 - M79.672) 12/07/2024 Pain in left foot (ICD-10 - M79.672) 01/20/2024 Other 07/30/2024 Other Plan Of Treatment Pending Test Test Name Order Date *Wound Culture 11/19/2022 95344-ZBHRPGE NAIL, 6 OR MORE 09/10/2022 99719-LZJXRXP NAIL, 6 OR MORE 06/21/2022 46267-YIJKOTH NAIL, 6 OR MORE 10/09/2021 68369-ASNQIQC NAIL, 6 OR MORE 12/11/2021 57685-LLKFMCB NAIL, 6 OR MORE 02/12/2022 22754-NYTEQVO NAIL, 6 OR MORE 10/12/2019 39576-CSIFVII NAIL, 6 OR MORE 12/21/2019 36099-UDPSNOG NAIL, 6 OR MORE 06/30/2020 00916-ESGMDGZ NAIL, 6 OR MORE 10/03/2020 37289-ZZRAFJA NAIL, 6 OR MORE 01/09/2021 09795-GXPXRJG NAIL, 6 OR MORE 03/23/2021 29294-COAPSDF NAIL, 6 OR MORE 06/29/2021 98073-SUFGYRI NAIL, 6 OR MORE 12/24/2022 30215-KRPYELD NAIL, 6 OR MORE 05/06/2023 09208-IFUGLAV NAIL, 6 OR MORE 08/08/2023 46814-FRFJWSW NAIL, 6 OR MORE 12/12/2023 07016-XMEYEDP NAIL, 6 OR MORE 04/02/2024 49126-BAKLQAY NAIL, 6 OR MORE 07/30/2024 35469-VNSSQEK NAIL, 6 OR MORE 12/07/2024 55898-Oefyufbr Plate 10/03/2020 45708- Debride <25 sq cm 10/03/2020 88333- Debride <25 sq cm 06/30/2020 22619- Debride <25 sq cm 11/09/2019 10555- Debride <25 sq cm 03/23/2021 60508- Debride <25 sq cm 01/09/2021 05811- Debride <25 sq cm 02/12/2022 56150- Debride <25 sq cm 12/11/2021 09392- Debride <25 sq cm 08/07/2021 86762- Debride <25 sq cm 10/09/2021 97423- Debride <25 sq cm 09/10/2022 12355- Debride <25 sq cm 10/12/2019 50125- Debride <25 sq cm 06/21/2022 00747- Debride <25 sq cm 10/11/2022 60781- Debride <25 sq cm 12/24/2022 99776- Debride <25 sq cm 12/07/2024 28157- Debride <25 sq cm 07/30/2024 75571- Debride <25 sq cm 08/08/2023 38523- Debride <25 sq cm 05/06/2023 29615-AIZFCFO SKIN/TISSUE 01/02/2024 14119-RWVDIIT SKIN/TISSUE 04/02/2024 67772-QCMIYBT SKIN/TISSUE 12/12/2023 19108 I&D ABSCESS- SIMPLE,SINGLE 022 29391 I&D ABSCESS- SIMPLE,SINGLE 022 12620 I&D ABSCESS- SIMPLE,SINGLE 022 45475 I&D ABSCESS- SIMPLE,SINGLE 021 32046, H7928-NFVID/INJECT, JOINT/BURSA 1 04/14/2021 Next Appt Details Provider Name:Lolita Altman , 04/15/2025 09:30:00 AM, [address] [facility], [place], [address], Insurance Providers Payer Name Payer Address Payer Phone Subscriber Number Group Number Insured Name Patient Relationship to Insured Coverage Start Date Coverage End Date Medicare National [employer] [address] [place] [address] [id number] Nelly Benavides Self - patient is the insured [facility] [address] [place] KUMAR [phone] [id number] Nelly Benavides Self - patient is the [...]
--- OUTSIDE RECORDS SUMMARY | 2024-12-16 12:15 | XMS_ITS | Encounter Summary ---
Author Organization [facility] Address [address] [place] [address] Care Team Providers Care Host Coordinator Name Role Phone Rolanda Alcala MD Primary Care Prov ider Encounter Details Date Type Department Care Team Description 01/18/2023 Social Work [facility] [address] [place] [address] [facility] Social History Tobacco Use Types [...] on filedocumented in this encounter Care Teams Host Coordinator Relationship Specialty Start Date End Date Rolanda Alcala MD [address] [place] [address] PCP - General Internal Medicine 10/25/22 documented as of this encounter
--- OUTSIDE RECORDS SUMMARY | 2024-12-16 12:15 | XMS_ITS | Clinical Summary ---
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 Drafter Automotive Design Layout Name Role Phone Rolanda Alcala MD Primary [...] 85 01/08/2024 11:00 AM EDT Temperature 36.6 C (97.9 F) 01/08/2024 11:00 AM EDT Respiratory Rate 16 01/08/2024 11:0 [...] 2) 1968 Colon Cancer Screening (Colonoscopy) 1994 Fall Risk Assessment 2014 Osteoporosis Screening (DEXA Scan) 2014 COVID-19 Vaccine (3 - Pfizer risk series) 02/06/2021 01/09/2021, 12/19/2020 RSV Adult > 60+ Yrs or (1 - 1-dose 75+ series) 2024 Influenza Vaccine (#1) 2024 , 01/09/2021, 12/29/2019, Additional history exists Pneumococcal Vaccine Completed 01/05/2020, 01/01/20 19 Hepatitis B Vaccines Aged Out No long er eligible based on patient's age to complete this topic RSV Ped < 20 months Aged Out No longe r eligible based on patient's age to complete this topic Medical Devices Implanted Type Area Charter Representative Device Identifier Shelf Expiration Date Model / Serial / Lot Cement Bone Simplex High Viscosity 20ml 40gm 10\Pack - 573458 - [id number] Implanted:Qty: 1 on 08/19/2019 by Frank Ramesh [facility] [place] [facility] Right: Knee [employer] 05/22/2020 6194-1-010 / / [id number] Cement Bone Simplex High Viscosity 20ml 40gm 10\Pack - 793558 - [id number] Implanted:Qty: 1 on 08/19/2019 by Frank Ramesh MD [place] [facility] Right: Knee [employer] 05/22/2020 6194-1-010 / / [id number] Component Triathlon 3 Posterior Stabilized Cemented Femoral - 524076 - [id number] Implanted:Qty: 1 on 08/19/2019 by Frank Ramesh MD at [facility] Right: Knee [employer] [id number] 09/01/2023 5515-F-302 / / [id number] Baseplate Triathlon 3 [place] Totl Stabilized Cocr Tibial - 346101 - [id number] Implanted:Qty: 1 on 08/19/2019 by Frank Ramesh MD at [facility] Right: Knee [employer] [id number] 10/13/2023 5521-B-300 / / [id number] Stem Triathlon 50mm 12mm Cemented Totl Stabilized Cocr - 109226 - [id number] Implanted:Qty: 1 on 08/19/2019 by Frank Ramesh MD at [facility] Right: Knee [employer] [id number] 01/28/2024 5560-S-112 / / [id number] Component Triathlon 9mm 33mm Symmetric X3 Ptlar Knee - 253586 - [id number] Implanted:Qty: 1 on 08/19/2019 by Frank Ramesh MD at [facility] Right: Knee [employer] [id number] 12/16/2023 5550-G-339 / / [id number] Plug Artisan Medium 25mm Plug Bone Cement - 063699 - [id number] Implanted:Qty: 1 on 08/19/2019 by Frank Ramesh MD at [facility] Right: Knee [employer] [id number] 02/16/2024 6215-5-011 / / [id number] Insert Triathlon 3 9mm Totl Stabilized Plus X3 Tibial Knee - 553838 - [id number] Implanted:Qty: 1 on 08/19/2019 by Frank Ramesh MD at [facility] Right: Knee [employer] [id number] 01/15/2023 5537-G-309 / / [id number] Cement Bone Simplex High Viscosity 20ml 40gm 10\Pack - 280271 - [id number] Implanted:Qty: 1 on 12/28/2019 by Frank Ramesh MD at [facility] Left: Knee [employer] [id number] 09/21/2020 6194-1-010 / / [id number] Plug Artisan Medium 25mm Plug Bone Cement - 850065 - [id number] Implanted:Qty: 1 on 12/28/2019 by Frank Ramesh MD at [facility] Left: Knee [employer] [id number] 10/21/2024 6215-5-011 / / [id number] Peg Triathlon Modular Fix Distal Femur Knee - 861676 - [id number] Implanted:Qty: 1 on 12/28/2019 by Frank Ramesh MD at [facility] Left: Knee [employer] [id number] 05/13/2024 5575-X-000 / / [id number] Component Triathlon 9mm 33mm Symmetric X3 Ptlar Knee - 697538 - [id number] Implanted:Qty: 1 on 12/28/2019 by Frank Ramesh MD [place] [facility] Left: Knee [employer] [id number] 11/03/2024 5550-G-339 / / [id number] Baseplate Triathlon 3 [place] Totl Stabilized Cocr Tibial - 257303 - [id number] Implanted:Qty: 1 on 12/28/2019 by Frank Ramesh MD at [facility] Left: Knee [employer] [id number] 02/13/2024 5521-B-300 / / [id number] Component Triathlon 3 Posterior Stabilized Cemented Femoral - 402452 - [id number] Implanted:Qty: 1 on 12/28/2019 by Frank Ramesh MD at [facility] Left: Knee [employer] [id number] 11/05/2022 5515-F-301 / / [id number] Stem Triathlon 50mm 12mm Cemented Totl Stabilized Cocr - 963361 - [id number] Implanted:Qty: 1 on 12/28/2019 by Frank Ramesh MD at [facility] Left: Knee [employer] [id number] 01/04/2024 5560-S-112 / / [id number] Insert Triathlon 3 9mm Totl Stabilized Plus X3 Tibial Knee - 879529 - [id number] Implanted:Qty: 1 on 12/28/2019 by Frank Ramesh MD at [facility] Left: Knee [employer] [id number] 05/07/2023 5537-G-309 / / [id number] Cement Bone Simplex High Viscosity 20ml 40gm 10\Pack - 431635 - [id number] Implanted:Qty: 1 on 12/28/2019 by Frank Ramesh MD at [facility] Left: Knee [employer] [id number] 10/22/2020 6194-1-010 / / [id number] Advance Directives For more information, please contact: [phone] Latest Code Status on File Code Status [...] will or healthcare instructions . Care Teams Drafter [employer]otive Design Layout Relationship Specialty Start Date End Date Rolanda Alclaa MD [address] [place] [id number] PCP - General Internal Medicine 01/16/22
== END 2024-12-16 10:57 | disposition home or self-care (01) ==
LOC: HO.RHES 10:01
PROVIDERS: Visit Provider Internal Medicine Rheumatology
DX: M05.79 Rheumatoid arthritis with rheumatoid factor of multiple sites without organ or systems involvement (principal); Z79.899 Other long term (current) drug therapy
CPT/HCPCS: 99214; G2211

== ENCOUNTER → 2024-12-16 10:01 | Outpatient (BNVA) | payer MEDICARE, OTHER, SELFPAY | PROVIDERS: Visit Provider Internal Medicine Rheumatology | DX: M05.79 Rheumatoid arthritis with rheumatoid factor of multiple sites without organ or systems involvement (principal); Z79.899 Other long term (current) drug therapy | CPT/HCPCS: 99212 ==